=== PATIENT | female | born 1995 | race African-American/Black ===

== ENCOUNTER 2017-03-27 12:25 | Emergency (ER) | payer MEDICAID, SELFPAY ==
[2017-03-27 12:27] VITALS: BP 141/113; PULSE 108; RESP 18; TEMP 36.9; O2SAT 97; BMI 31.5
--- NOTE | 2017-03-27 13:04 | ED.DCSUM_ITS ---
- ER Visit Summary Date of Service: 03/27/17 Chief Complaint: Sore throat History of Present Illness: The patient is a 21 F past medical or surgical history. Patient states she has had a low-grade fever around 100 and a sore throat for the last 3 days. Mild nausea. Last menstrual period was a week ago. No dysuria. No significant abdominal pain. Physical Examination: Vital signs are stable afebrile. Pulse ox 97% on room air no signs of hypoxia. HEENT exam posterior pharynx is erythematous. Bilateral tonsils are mildly swollen. The right tonsil has exudate. There is no peritonsillar abscess. No drooling. No stridor. No trouble breathing or swallowing. TMs are normal bilaterally. The right tonsillar bed on the anterior neck is tender but there is no significant lymphadenopathy. Trachea is midline. Nontender. Lungs clear to auscultation. Heart regular rate and rhythm no murmur. Abdomen is soft and nontender. Moving all 4 extremities. Neurologically intact. Skin normal no rashes. Neurologic exam is normal. Test Results: None Emergency Department Course and Treatment: Clinically and historically the patient be treated for strep throat. Started on amoxicillin 500 3 times daily for 10 days. Tylenol Motrin for pain. Warm salt water gargling. Return if worse. Treatment Plan: [] Disposition: Discharge Impression: Acute strep tonsillitis This note was generated with [employer] dictation software. It may contain incorrect words, spelling, and punctuation that were not noted in review of the chart prior to signing ED Disposition - Plan for ED Patient: Chief Complaint: Sore Throat Referrals: Hemant Johnson DO [Primary Care Provider] -
--- NOTE | 2017-03-27 13:04 | ED.DEP ---
ED Disposition - Plan for ED Patient: Disposition: Home or Assisted Living Chief Complaint: Sore Throat Instructions: ED Strep Pharyngitis Poss Prescriptions: Amoxicillin 500 mg PO Q8 #30 tab Referrals: Hemant Johnson DO [Primary Care Provider] - 1 Week if not improving Additional Instructions: Fluids and rest. Tylenol and Motrin for pain and fever. Warm salt water gargling. Chloraseptic spray. Amoxicillin 3 times a day for 10 days. Return if getting worse or unable to swallow. Follow-up with primary care physician as needed.
[2017-03-27] MEDS: AMOXICILLIN 500 MG CAPSULE PO (13:36)
== END 2017-03-27 13:40 | disposition home or self-care (01) ==
PROVIDERS: Emergency Provider Emergency Medicine; Family Provider Family Medicine; PCP Family Medicine
DX: J03.00 Acute streptococcal tonsillitis, unspecified (principal); J02.0 Streptococcal pharyngitis; Z72.0 Tobacco use
CPT/HCPCS: 99283

== ENCOUNTER 2017-04-01 20:40 | Emergency (ER) | payer MEDICAID, SELFPAY ==
[2017-04-01 20:41] VITALS: BP 131/76; PULSE 101; RESP 16; TEMP 37.6; O2SAT 98; BMI 31.4
--- NOTE | 2017-04-01 23:24 | ED.DCSUM_ITS ---
- ER Visit Summary Date of Service: 04/01/17 Chief Complaint: Sore throat, cough, myalgias History of Present Illness: The patient is a 21 F seen 5 days ago for sore throat. Treated with amoxicillin for presumed strep. Dates feels much better, only mild pain with swallowing. No fevers. However 2 days ago started having cough and myalgias. No flu vaccination this year. Tobacco history. Motrin taken 4 hours ago. Tolerating oral intake. No vomiting or diarrhea. No history of asthma or COPD. States only takes oral contraceptives. Denies chest pains. Denies dyspnea. Physical Examination: General: Alert and oriented ?3, no acute distress. Occasional cough HEENT: Normocephalic, atraumatic. Moist mucosa membranes. No posterior pharyngeal erythema. Symmetric minimal sized tonsils. Uvula midline. No trismus. Neck: supple, nontender. No lymphadenopathy Cardiovascular: Regular rate and rhythm, no murmurs Respiratory: Normal breath sounds, symmetric, no distress Abdomen: Soft, nontender, nondistended Extremities: Nontender, no edema, pulses intact ?4 Neuro: no focal neurological deficits. Test Results: [] Emergency Department Course and Treatment: Patient vital signs stable, nontoxic. History presents concerning for influenza symptoms over the past 2 days. She has no comorbidities. However she is inside the window. Offered treatment and discussed side effects for which she wished to be started on Tamiflu. She will finish her amoxicillin. She is treated with Decadron to help with her mild pain with swallowing. She continue oral fluids at home. All questions were answered. Follow with PCP, return if any worsening symptoms. Treatment Plan: [] Disposition: Discharge Impression: 1. Sore throat- subsequent encounter 2. Influenza-like symptoms This note was generated with [employer] dictation software. It may contain incorrect words, spelling, and punctuation that were not noted in review of the chart prior to signing ED Disposition - Plan for ED Patient: Disposition: Home or Assisted Living Chief Complaint: General Illness Diagnosis: Sore throat, Influenza-like symptoms Instructions: Influenza, Self-Care for Sore Throats Prescriptions: Oseltamivir Phosphate [Tamiflu] 75 mg PO BID #10 capsule Referrals: Hemant Johnson DO [Primary Care Provider] - 3-5 Days
[2017-04-01] MEDS: Oseltamivir Phosphate 75 MG Capsule PO (23:40)
[2017-04-01 23:43] VITALS: PULSE 101; RESP 18; O2SAT 97
== END 2017-04-01 23:44 | disposition home or self-care (01) ==
PROVIDERS: Emergency Provider Emergency Medicine; Family Provider Family Medicine; PCP Family Medicine
DX: J02.9 Acute pharyngitis, unspecified (principal); R05 Cough; M79.1 Myalgia; Z79.3 Long term (current) use of hormonal contraceptives; Z72.0 Tobacco use
CPT/HCPCS: 99282

== ENCOUNTER 2017-04-27 07:48 | Emergency (ER) | payer MEDICAID, SELFPAY ==
[2017-04-27 07:50] VITALS: BP 148/90; PULSE 117; RESP 16; TEMP 36.1; O2SAT 100; BMI 30.5
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
[2017-04-27] MEDS: Diphth,Pertuss(Acell),Tet Vac 0.5 ML Vial IM (08:15)
[2017-04-27] MEDS: Naproxen 500 MG Tablet PO (08:16)
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
[2017-04-27 09:53] VITALS: BP 148/75; PULSE 82; RESP 16; O2SAT 98
== END 2017-04-27 09:54 | disposition home or self-care (01) ==
PROVIDERS: Emergency Provider Emergency Medicine; Family Provider Family Medicine; PCP Family Medicine
DX: S00.83XA Contusion of other part of head, initial encounter (principal); S00.531A Contusion of lip, initial encounter; S90.812A Abrasion, left foot, initial encounter; S60.872A Other superficial bite of left wrist, initial encounter; M25.512 Pain in left shoulder; M79.642 Pain in left hand; Y04.1XXA Assault by human bite, initial encounter; Y04.2XXA Assault by strike against or bumped into by another person, initial encounter; Y93.9 Activity, unspecified; Y92.9 Unspecified place or not applicable
CPT/HCPCS: 73030; 73110; 73130; 73630; 90715; 99283

== ENCOUNTER → 2017-07-30 13:56 | Outpatient (CLI) | payer MEDICAID, SELFPAY ==
[2017-07-30 17:48] LABS: Chlamydia Trachomatis by PCR POSITIVE (Negative); Neisserai gonorrhoeae by PCR Negative (Negative); Probe Check PASS; Specimen Processing Control PASS
[2017-07-30 17:49] LABS: Sample Adequacy Control PASS
[2017-08-04 19:07] LABS: HPV Reflexed? NOT INDICATED
== END ==
PROVIDERS: Visit Provider Obstetrics & Gynecology
DX: Z12.4 Encounter for screening for malignant neoplasm of cervix (principal)
CPT/HCPCS: 87491; 87591; 88175; G0145

== ENCOUNTER 2017-10-24 08:51 | Emergency (ER) | payer MEDICAID, SELFPAY ==
[2017-10-24 08:51] VITALS: BP 120/57; PULSE 86; RESP 14; TEMP 36.3; O2SAT 99; BMI 33.3
--- NOTE | 2017-10-24 09:03 | ED.DCSUM_ITS ---
- ER Visit Summary Date of Service: 10/24/17 Chief Complaint: Cough, vomiting, diarrhea History of Present Illness: The patient is a 22 F presents to the emergency department with multiple symptoms. The patient is otherwise healthy. She states over the past 3 days, she has had myalgias, chills, cough, vomiting, diarrhea. She states initially, she started with mild nasal drainage. She states shortly after that, she began to cough and begin to have fevers. She states that she has had about 3 or 4 episodes of vomiting. She states over the past 2 days, every time she moves her bowels with loose watery diarrhea. She denies any recent antibiotics. She denies any recent travel. She takes no daily medications. She has had no prior abdominal surgery. She does state that her family members recently traveled from [facility] about 3 weeks ago, but does not think any of them are sick. Physical Examination: Vital signs reviewed General: Well-nourished, well-developed Head: Normocephalic, atraumatic Eyes: Pupils equal and reactive, extraocular muscles intact Neck, supple, no lymphadenopathy Heart: Regular rate and rhythm Respiratory: No distress, scant wheeze throughout Abdomen: Soft, nontender, nondistended, no peritoneal signs Back: Nontender Extremities: Nontender, no edema, no cords Skin: Normal color no rash Neuro: Alert and oriented, no focal or lateralizing deficits Test Results: [] Emergency Department Course and Treatment: The patient presents to the emergency department with cough, nausea, vomiting, diarrhea. She does have wheezing throughout all lung garcía. She was given a DuoNeb treatment with improvement of her aeration. Her x-ray does not show any focal infiltrates. Patient was given IV fluids and nausea medication. She did have rather significant improvement of her nausea. Screening labs were obtained were unremarkable. Her electrolytes are unremarkable. She is feeling improved on reevaluation. I do not suspect a dangerous process of her symptoms. I do not see a clear indication for antibiotic therapy. I do feel that the patient can be treated symptomatically with antiemetics and an inhaler for her bronchospasm. She was counseled on concerning symptoms and reasons to return. Patient will be discharged home. Treatment Plan: [] Disposition: Discharge Impression: 1. Viral bronchitis 2. Nausea, vomiting, diarrhea This note was generated with [employer] software. It may contain incorrect words, spelling, and punctuation that were not noted in review of the chart prior to signing ED Disposition - Plan for ED Patient: Chief Complaint: General Illness Instructions: ED Viral Syndrome Prescriptions: Albuterol Inhaler [Ventolin Hfa] 1 - 2 puff INHALATION Q4H PRN PRN #1 inhaler PRN Reason: Wheezing Ondansetron [Zofran Odt] 4 mg PO Q8H PRN PRN #10 tab PRN Reason: Nausea Referrals: Hemant Johnson DO [Primary Care Provider] -
[2017-10-24] MEDS: Ipratropium/Albuterol Sulfate 3 ML AMPUL.NEB INHALATION (09:13)
[2017-10-24 09:15] VITALS: PULSE 60; RESP 18
[2017-10-24] MEDS: 0.9% Normal Saline 1,000 ML 1000 ML IV (09:23)
[2017-10-24] MEDS: proMETHazine 25 MG/ML Syringe 6.25 MG IV (09:23)
[2017-10-24 09:26] LABS: Absolute Lymphocyte Count 1.55 X10^3/ul (0.83-4.51); Absolute Neutrophil Count 3.8 X10^3/uL (2.0-7.7); Basophil# 0.02 X10^3/uL; Basophil% 0.3 % (0-1); Eosinophil# 0.36 X10^3/uL; Eosinophils% 5.7 % (0-5); Hematocrit 39.5 % (37-47); Hemoglobin 12.5 g/dl (12.0-15.0); Lymphocyte # 1.55 X10^3/ul (4.0); Lymphocyte % 24.6 % (19-41); Mean Corp Hgb Conc 31.6 g/gl (32-36); Mean Corpuscular Hgb 27.5 pg (27.0-32.0); Mean Corpuscular Volume 86.8 fL (81-99); Monocyte# 0.56 X10^3/uL; Monocyte% 8.9 % (0-10); Neutrophil % 60.5 % (47-70); Platelet Count 283 K/mm3 (150-450); RBC Distribution Width CV 13.2 % (11.6-14.6); Red Blood Count 4.55 M/mm3 (4.2-5.4); White Blood Count 6.3 K/mm3 (4.4-11.0)
[2017-10-24 09:30] LABS: POSITIVE COUNT NO; POSITIVE DIFFERENTIAL NO; POSITIVE MORPHOLOGY NO
--- NOTE | 2017-10-24 09:30 | RAD_ITS ---
STUDY: X-RAY CHEST REASON FOR EXAM: Female, 22 years old. 3 day history of cough. TECHNIQUE: PA and lateral views of the chest. COMPARISON: Comparison is made with prior study dated July 30, 2016. FINDINGS: The lungs are clear and expanded. There is no demonstrated pleural abnormality. Normal size heart. Normal mediastinum and tono. Normal visualized pulmonary arteries. Normal visualized aortic arch and descending thoracic aorta. Normal visualized thoracic spine. Normal visualized ribs, clavicles, and shoulders. There is no demonstrated abnormality of the visualized soft tissue structures of the upper abdomen. RAD/Chest PA and Lateral IMPRESSION: Normal x-ray examination of the chest. Electronically Signed: Luis Dunlap MD at 10:07 EDT Tel [phone], Service support ,
[2017-10-24 09:38] LABS: ALB/GLOB Ratio 0.9 RATIO (0.9-2.4); AST(SGOT) 13 U/L (15-37); Alanine Aminotransfer ALT/SGPT 16 U/L (13-56); Albumin, Serum 3.3 g/dL (3.2-5.0); Alkaline Phosphatase 60 U/L (45-117); Anion Gap 5 (5-15); BUN 9 mg/dL (7-18); BUN/Creat Ratio 13.2 RATIO (10-20); Calcium,Total 8.8 mg/dL (8.5-10.1); Chloride 108 mmol/L (98-107); Creatinine, Serum 0.68 mg/dL (0.55-1.02); EST Glomerular Filtration Rate 115 mL/min (>60); Est Glom Filt Rate - Afr Amer 140 mL/min (>60); Estimated Creatinine Clearance 141.52 ml/min; Globulin 3.8 g/dL (2.2-4.2); Glucose 89 mg/dL (74-106); Potassium 4.3 mmol/L (3.5-5.1); Protein, Total 7.1 g/dL (6.4-8.2); Sodium Level 142 mmol/L (136-145)
[2017-10-24 09:41] LABS: Pregnancy, Serum, hCG Quali. NEGATIVE Negative (0-9 Nonpreg)
== END 2017-10-24 10:26 | disposition home or self-care (01) ==
LOC: ED 09:09
PROVIDERS: Emergency Provider Emergency Medicine; Family Provider Family Medicine; PCP Family Medicine
DX: J20.8 Acute bronchitis due to other specified organisms (principal); R11.2 Nausea with vomiting, unspecified; R19.7 Diarrhea, unspecified
CPT/HCPCS: 71046; 80053; 84703; 85025; 94640; 96361; 96374; 99283; J7030; A4216

== ENCOUNTER → 2020-01-17 13:55 | Outpatient (CLI) | payer MEDICAID, SELFPAY ==
[2020-01-17 18:11] LABS: Hemoglobin A1c 5.3 % (3.8-5.6)
[2020-01-17 18:38] LABS: ALB/GLOB Ratio 0.8 RATIO (0.9-2.4); AST(SGOT) 15 U/L (15-37); Alanine Aminotransfer ALT/SGPT 20 U/L (13-56); Albumin, Serum 3.5 g/dL (3.2-5.0); Alkaline Phosphatase 95 U/L (45-117); Anion Gap 7 (5-15); BUN 15 mg/dL (7-18); BUN/Creat Ratio 21.5 RATIO (10-20); Calcium,Total 8.7 mg/dL (8.5-10.1); Chloride 106 mmol/L (98-107); EST Glomerular Filtration Rate 110 mL/min (>60); Est Glom Filt Rate - Afr Amer 133 mL/min (>60); Globulin 4.5 g/dL (2.2-4.2); Glucose 103 mg/dL (74-106); Potassium 4.4 mmol/L (3.5-5.1); Sodium Level 134 mmol/L (136-145); T4 Free Direct 1.07 ng/dL (0.76-1.46); Thyroid Stim Hormone (TSH) 1.12 uIU/mL (0.358-3.74)
== END ==
PROVIDERS: PCP Family Medicine; Visit Provider Family Medicine
DX: R73.01 Impaired fasting glucose (principal); R53.83 Other fatigue
CPT/HCPCS: 36415; 80053; 83036; 84439; 84443

== ENCOUNTER → 2020-04-14 16:00 | Outpatient (CLI) | payer MEDICAID, SELFPAY ==
[2020-04-17 19:51] LABS: EBV Acute VCA IgM < 36.0 U/mL (0.0-35.9); EBV-VCA IgG > 600.0 U/mL (0.0-17.9)
[2020-04-18 03:06] LABS: Chlamydia By Nucleic Acid AMP Negative (Negative)
[2020-04-18 15:59] LABS: Gonococcus By Nucleic Acid AMP Positive (Negative)
[2020-04-19 11:49] LABS: HPV APTIMA, High Risk Negative (Negative)
== END ==
PROVIDERS: Student in an Organized Health Care Education/Training Program; PCP Family Medicine; Visit Provider Family Medicine
DX: J02.9 Acute pharyngitis, unspecified (principal); Z12.4 Encounter for screening for malignant neoplasm of cervix; Z11.3 Encounter for screening for infections with a predominantly sexual mode of transmission
CPT/HCPCS: 36415; 86664; 86665; 87491; 87591; 87624; 88175; G0145

== ENCOUNTER 2020-05-09 11:08 | Emergency (ER) | payer MEDICAID, SELFPAY ==
[2020-05-09 11:09] VITALS: BP 145/96; PULSE 106; RESP 18; TEMP 37.2; O2SAT 100; BMI 37.6
[2020-05-09] MEDS: Acetaminophen 500 MG Tablet 1000 MG PO (11:54)
[2020-05-09] MEDS: 0.9% Normal Saline 1,000 ML 1000 ML IV (11:56)
[2020-05-09 12:11] VITALS: PULSE 90; RESP 18; O2SAT 100
[2020-05-09 12:17] VITALS: O2SAT 100
--- NOTE | 2020-05-09 12:18 | RAD_ITS ---
STUDY: X-RAY CHEST REASON FOR EXAM: Female, 25 years old. Fever. Cough and sore throat. TECHNIQUE: Single AP portable view of the chest. COMPARISON: Comparison is made with prior study dated 10/24/2017. FINDINGS: The lungs are clear and expanded. There is no demonstrated pleural abnormality. Normal size heart. Normal mediastinum and tono. Normal visualized pulmonary arteries. Normal visualized aortic arch and descending thoracic aorta. Normal visualized thoracic spine. Normal visualized ribs, clavicles, and shoulders. There is no demonstrated abnormality of the visualized soft tissue structures of the upper abdomen. RAD/Chest 1 View (Portable) IMPRESSION: Normal x-ray examination of the chest. Electronically Signed: Luis Dunlap MD at 12:33 EDT , Service support ,
--- NOTE | 2020-05-09 12:24 | ED.DCSUM_ITS ---
- ER Visit Summary Date of Service: 05/09/20 Chief Complaint: Sore throat, diarrhea, general myalgias History of Present Illness: The patient is a 25 F who presents with a sore throat, diarrhea, and myalgias that began yesterday. Patient states this has gradually gotten worse. Patient states she has pain in her throat that is worse with swallowing. Patient states she also has pain in both ears whenever she swallows. Patient admits to some rhinorrhea. Patient also admits to subjective chills but denies any fevers. Patient admits to general myalgias. Patient states she has been having some diarrhea as well. Patient denies any nausea or vomiting. Patient admits to some mild shortness of breath. Physical Examination: Vital signs are stable. Patient is afebrile. Patient is in no acute distress. Oral mucosa is pink and moist. Oropharynx is slightly erythematous. There is questionable exudate on the tonsils. Neck is supple. Trachea is midline. There is no JVD. Heart was regular rate and rhythm. Lungs are clear and equal bilaterally. Abdomen is soft. Bowel sounds are normal. There is no tenderness. Cranial nerves II through XII are intact. There are no focal motor or sensory deficits. There is some mild erythema and induration over the dorsal aspect of the left distal forearm. There is no evidence of any abscess. There is no discharge or drainage. Test Results: Rapid strep was obtained and was positive. COVID-19 rapid antigen was obtained was negative. CBC shows a leukocytosis of 16.5. Basic metabolic profile was essentially within normal limits. Emergency Department Course and Treatment: IV fluids and Tylenol here. Patient was feeling somewhat better on reevaluation. Patient was given prescription for Keflex. Patient was given her first dose here. Patient was instructed to follow-up with her primary care physician in 5 to 7 days. Patient was instructed to continue Tylenol or ibuprofen as needed for pain. Patient understood and was agreeable with the plan. All questions were answered. Disposition: Discharge home Impression: 1. Strep pharyngitis 2. Cellulitis left forearm This note was generated with [employer] software. It may contain incorrect words, spelling, and punctuation that were not noted in review of the chart prior to signing ED Disposition - Plan for ED Patient: Disposition: Home or Assisted Living Diagnosis: Strep pharyngitis, Cellulitis of left forearm Instructions: ED Pharyngitis, Strep (Confirmed) Prescriptions: Cephalexin [Keflex] 500 mg PO Q6 #40 capsule Prescription Printed Referrals: Hemant Johnson DO [Primary Care Provider] - 5-7 Days
[2020-05-09 13:06] LABS: Absolute Lymphocyte Count 0.77 X10^3/uL (0.83-4.51); Absolute Neutrophil Count 14.4 X10^3/uL (2.0-7.7); Basophil# 0.03 X10^3/uL; Basophil% 0.2 % (0-1); Eosinophil# 0.05 X10^3/uL; Eosinophils% 0.3 % (0-5); Hematocrit 40.5 % (37-47); Hemoglobin 12.8 g/dL (12.0-15.0); Lymphocyte # 0.77 X10^3/ul (4.0); Lymphocyte % 4.7 % (19-41); Mean Corp Hgb Conc 31.6 g/dL (32-36); Mean Corpuscular Hgb 27.3 pg (27.0-32.0); Mean Corpuscular Volume 86.4 fL (81-99); Mean Platelet Vol. 8.8 fl (6.2-12.0); Monocyte# 1.19 X10^3/uL; Monocyte% 7.2 % (0-10); NRBC Flagged by Analyzer 0 % (0-5); Neutrophil % 87.1 % (47-70); Platelet Count 337 K/mm3 (150-450); RBC Distribution Width CV 11.5 % (11.6-14.6); RBC Distribution Width SD 36.6 fl (35.1-43.9); Red Blood Count 4.69 M/mm3 (4.2-5.4); White Blood Count 16.5 K/mm3 (4.4-11.0)
[2020-05-09 13:20] VITALS: BP 125/77; PULSE 83; RESP 18; O2SAT 100
[2020-05-09 13:23] LABS: Anion Gap 2 (5-15); BUN 5 mg/dL (7-18); Calcium,Total 9.2 mg/dL (8.5-10.1); Chloride 102 mmol/L (98-107); Creatinine, Serum 0.63 mg/dL (0.55-1.02); EST Glomerular Filtration Rate 124 mL/min (>60); Est Glom Filt Rate - Afr Amer 150 mL/min (>60); Glucose 99 mg/dL (74-106); Potassium 3.7 mmol/L (3.5-5.1); Sodium Level 134 mmol/L (136-145)
[2020-05-09] MEDS: Cephalexin 500 MG Capsule PO (14:17)
== END 2020-05-09 14:22 | disposition home or self-care (01) ==
PROVIDERS: Emergency Provider Emergency Medicine; PCP Family Medicine
DX: J02.0 Streptococcal pharyngitis (principal); L03.114 Cellulitis of left upper limb; E66.9 Obesity, unspecified; F31.9 Bipolar disorder, unspecified; F17.200 Nicotine dependence, unspecified, uncomplicated
CPT/HCPCS: 71045; 80048; 85025; 87426; 87880; 99285; J7030

== ENCOUNTER → 2022-12-23 | Outpatient (CLI) | payer MEDICAID, SELFPAY ==
[2022-12-23 17:54] LABS: Absolute Lymphocyte Count 1.65 X10^3/uL (0.83-4.51); Absolute Neutrophil Count 7.6 X10^3/uL (2.0-7.7); Basophil# 0.06 X10^3/uL; Basophil% 0.6 % (0-1); Eosinophil# 0.27 X10^3/uL; Eosinophils% 2.6 % (0-5); Hematocrit 40.6 % (37-47); Hemoglobin 12.4 g/dL (12.0-15.0); Lymphocyte # 1.65 X10^3/ul (0.83-4.51); Lymphocyte % 15.9 % (19-41); Mean Corp Hgb Conc 30.5 g/dL (32-36); Mean Corpuscular Hgb 25.9 pg (27.0-32.0); Mean Corpuscular Volume 84.9 fL (81-99); Mean Platelet Vol. 9.8 fl (6.2-12.0); Monocyte# 0.81 X10^3/uL; Monocyte% 7.8 % (0-10); NRBC Flagged by Analyzer 0 % (0-5); Neutrophil # 7.56 X10^3/uL (2.7-7.7); Neutrophil % 72.7 % (47-70); Platelet Count 381 K/mm3 (150-450); RBC Distribution Width CV 13.5 % (11.6-14.6); RBC Distribution Width SD 42.2 fl (35.1-43.9); Red Blood Count 4.78 M/mm3 (4.2-5.4); White Blood Count 10.4 K/mm3 (4.4-11.0)
[2022-12-23 18:23] LABS: Vitamin B12 310 pg/mL (211-911); Vitamin D,25 Hydroxy 32.2 ng/mL
[2022-12-23 18:32] LABS: ALB/GLOB Ratio 0.9 RATIO (0.9-2.4); AST(SGOT) 12 U/L (15-37); Alanine Aminotransfer ALT/SGPT 17 U/L (13-56); Albumin, Serum 3.6 g/dL (3.2-5.0); Alkaline Phosphatase 58 U/L (45-117); Anion Gap 6 (5-15); BUN 13 mg/dL (7-18); BUN/Creat Ratio 14.8 RATIO (10-20); Calcium,Total 9.3 mg/dL (8.5-10.1); Chloride 103 mmol/L (98-107); Creatinine, Serum 0.88 mg/dL (0.55-1.02); EST Glomerular Filtration Rate 83 mL/min (>60); Est Glom Filt Rate - Afr Amer 100 mL/min (>60); Globulin 4.1 g/dL (2.2-4.2); Glucose 75 mg/dL (74-106); Potassium 4.2 mmol/L (3.5-5.1); Protein, Total 7.7 g/dL (6.4-8.2); Sodium Level 137 mmol/L (136-145); Thyroid Stim Hormone (TSH) 2.29 uIU/mL (0.358-3.74)
== END | disposition home or self-care (01) ==
LOC: BFHLAB 16:14
PROVIDERS: PCP Family Medicine; Visit Provider Family Medicine
DX: R53.83 Other fatigue (principal)
CPT/HCPCS: 36415; 80053; 82306; 82607; 84443; 85025

== ENCOUNTER 2023-02-06 17:19 | Emergency (ER) | payer MEDICAID, SELFPAY ==
[2023-02-06 17:20] VITALS: BP 163/104; PULSE 83; RESP 16; TEMP 36.4; O2SAT 98; BMI 41.3
[2023-02-06 18:11] LABS: Internal QC Validated? YES +Cl - CLEAR BKGD; Pregnancy, Urine Positive Negative
--- NOTE | 2023-02-06 20:04 | EDS_ITS ---
HPI HPI - URI History of Present Illness Chief Complaint: Cold Sx Informant: patient Onset/Context/Timing Onset: Today Timing: Continuous Current Severity: Mild Maximum Severity: Mild Associated Symptoms Associated Symptoms: Positive for Nasal Congestion, Nausea, Vomiting, Diarrhea and Nonproductive cough Narrative Narrative: 27-year-old female history of bipolar disorder and anxiety. States multiple family members at home have COVID. She tested negative at home came in to be evaluated. Also concerned she may be . Denies any abdominal pain. No pelvic pain. No vaginal bleeding or discharge. Last menstrual period was near the end of December. She is G1, P1 Ab0. She denies any dysuria. She has had nausea, vomiting and diarrhea today. Prior similar symptoms: Yes Recent Illness/Hospitalization: No ROS ROS ED ROS Narrative Nausea, vomiting and diarrhea. Nonproductive cough. Review of Systems ROS Unobtainable: Denies due to encephalopathy Constitutional Constitutional ED: Denies chills or fever(s) Eyes Eyes: Denies blurry vision ENT ENT ED: Denies ear pain, rhinorrhea or sore throat Cardiovascular Cardiovascular: Denies chest pain Respiratory/Chest Respiratory/Chest: Reports cough; Denies dyspnea or dyspnea on exertion Gastrointestinal Gastrointestinal: Reports diarrhea, nausea and vomiting; Denies abdominal pain, constipation or melena Genitourinary Genitourinary ED: Denies dysuria or hematuria Musculoskeletal Musculoskeletal: Denies arthralgias Integumentary Denies abscess Neurologic Neurologic: Denies headache(s) Psychiatric Psychiatric: Denies anxiety Endocrine Endocrinology: Denies cold intolerance Hematologic/Lymphatic Hematologic/Lymphatic: Denies easy bleeding Allergic/Immunologic Allergic/Immunologic ED: Denies mouth swelling, tongue swelling or urticaria PFSH PFSH Home Medications albuterol sulfate 90 mcg/actuation aerosol inhaler 1 - 2 puff inhalation Q4H PRN PRN Wheezing ##1 10/24/17 [Rx Last Taken Unknown] ondansetron 4 mg disintegrating tablet 4 mg PO Q8H PRN PRN Nausea #10 tabs 10/24/17 [Rx Last Taken Unknown] cephalexin 500 mg capsule 500 mg PO Q6 #40 CAPSULES 05/09/20 [Rx Last Taken Unknown] ondansetron 4 mg disintegrating tablet 4 mg PO Q6H PRN nausea and vomiting #7 tabs 02/06/23 [Rx Last Taken Unknown] Allergy/AdvReac Type Severity Reaction Status Date / Time No Known Allergies Allergy Verified 02/06/23 17:19 Social History Smoking Status: Current every day smoker EXAM Physical Exam Narrative Exam Narrative: Well-appearing 27-year-old female. Vital signs stable afebrile. Pulse ox 98% on room air no hypoxia. H EENT exam unremarkable. Moist membranes. Neck nonte nder no JVD. Lungs clear to auscultation bilaterally. Heart regular rhythm no murmur rate about 80. Abdomen soft nondistended normal bowel sounds no peritoneal signs. Absolutely no abdominal or pelvic tenderness. Moving all 4 extremities. Nontender no edema. Neurologically she is awake alert with no focal motor deficits. Benign exam. Const Vital Signs: 02/06/23 17:20 Temperature 97.5 F L Temperature Source Temporal Pulse Rate 83 Respiratory Rate 16 Blood Pressure 163/104 H Blood Pressure Mean 123 Pulse Ox 98 Oxygen Delivery Method Room Air Positive well nourished and well developed; Negative for cachectic or contractures General Appearance ED: well developed and NAD; Negative for cachectic, contractures, cyanotic, diaphoretic or pallor Nutritional Appearance: Negative for cachectic HEENT Reports moist mucous membranes; Denies dry mucous membranes normocephalic and atraumatic; Negative for scalp tenderness Face and Sinus: Negative for sinus tenderness Mouth ED: No dry mucous membranes Mouth: No dry mucous membranes Teeth and Gingiva: Negative for caries Throat: posterior oropharynx normal; Negative for tonsils abnormal or posterior oropharynx abnormal Eyes PERRL and EOMs intact bilaterally General Eye ED: Negative for pale conjunctiva, scleral icterus or other Neck no lymphadenopathy, supple, no meningeal signs and no JVD General: Negative for anterior neck swelling, lymphadenopathy or other Resp normal respiratory effort and clear to auscultation bilaterally Effort and Inspection: Negative for retractions Auscultation: Negative for rales, rhonchi or wheezes Cardio S1 normal heart sound, S2 normal heart sound and no murmurs Rate: regular rate Rhythm: regular rhythm GI non-tender, non-distended and no masses Inspection: Negative for abdominal distention Auscultation: normoactive bowel sounds Palpation: soft; Negative for tender, guarding or hepatomegaly Percussion: Negative for other Back/Spine no CVA tenderness and normal ROM General Back: Negative for CVA tenderness Cervical Spine: Negative for cervical spine tenderness Thoracic Spine / Upper Back: Negative for thoracic spinal tenderness Lumbar Spine / Lower Back: Negative for lumbar spinal tenderness Sacrum: Negative for tenderness Extremity normal to inspection and full ROM General Extremety ED: Yes tenderness; Negative for cyanosis General Extremity: Negative for cyanosis Neuro oriented x3 and CN's II-XII intact bilaterally Sensorium / Orientation: alert Motor Exam: strength 5/5 throughout Psych mental status grossly normal Appearance: Negative for other Attitude: No agitated Mood & Affect: Negative for depressed or tearful Skin General Skin Exam: Negative for jaundice or pallor Lesions: no lesions Rashes: no rashes Trauma: Negative for abrasion or laceration MDM MDM MDM Narrative Medical decision making narrative: 27-year-old female wanted be checked for and she is positive on urine test. Most likely she has a viral syndrome possibly even COVID with multiple family members at home with COVID but hers tested negative. Should be treated with IV fluids and Zofran. Discharged home with Zofran prescription. Outpatient follow-up with MANUFACTURING DIRECTOR. History & Record Review Discussion w/independent historian: Patient Additional record(s) reviewed:: Prior inpatient record, Prior outpatient record and Prior ED visit Lab Data Attestation: I reviewed the patient's lab results. Lab results narrative: COVID test negative. Urine test positive. Labs: Laboratory Results - last 24 hr 02/06/23 18:00 Urine Test Positive H Discharge Plan Triage Chief Complaint: Cold Sx ED Provider: Mendoza Arias Dx/Rx/DC Orders Clinical Impression: First trimester , Viral syndrome Instructions: 1st Trimester, ED Viral Syndrome (Adult) Prescriptions: New ondansetron 4 mg tablet,disintegrating 4 mg PO Q6H PRN (Reason: nausea and vomiting) Qty: 7 0RF No Action albuterol sulfate 1 INHALER inhaler 1 - 2 puff INHALATION Q4H PRN PRN (Reason: Wheezing) Qty: 1 0RF ondansetron 4 MG tablet 4 mg PO Q8H PRN PRN (Reason: Nausea) Qty: 10 0RF cephalexin 500 MG capsule 500 mg PO Q6 Qty: 40 0RF Primary Care Provider: Hemant Johnson Referrals: Hemant Johnson DO [Primary Care Provider] - Zeenat Jin DO [Med Staff - Active Staff] - As soon as possible Activity Restrictions/Additional Instructions: COVID test is negative today but you probably have COVID or another virus. Plenty of fluids and rest. Tylenol for any fever. Zofran as needed for nausea. Your test was positive. Follow-up with MANUFACTURING DIRECTOR. Disposition Disposition: Home, Self Care
[2023-02-06 20:08] VITALS: BP 97/82; PULSE 81; RESP 22; O2SAT 98
[2023-02-06 20:17] VITALS: BP 112/70; PULSE 92; RESP 16; O2SAT 100
[2023-02-06] MEDS: Ondansetron 4 MG/2 ML Vial IV (20:20)
[2023-02-06] MEDS: 0.9% Normal Saline (1000mL) 1,000 ML 1000 ML IV (20:20)
--- OUTSIDE RECORDS SUMMARY | 2023-02-06 21:16 | XMS RPT_ITS | CCD ---
Author Name Unknown Address [address] [place] [address] Organization [facility] Care Team Providers Care Scrum Coach Name Role Phone Joaquin Johnson Primary Care Provider [phone] Charleen Zhu MD Unavailable CHARLEEN ZHU Attending Unavailable JOAQUIN JOHNSON Primary Care Unavailable CHARLEEN ZHU Attending Unavailable JOAQUIN JOHNSON Referring Unavailable JOAQUIN JOHNSON Primary Care Unavailable CHARLEEN ZHU Admitting Unavailable CHARLEEN ZHU Attending Unavailable JOAQUIN JOHNSON Primary Care Unavailable Joaquin Johnson DO Primary Care Provider SOURAV HURT Referring Unavailable JOAQUIN JOHNSON Primary Care Unavailable JOAQUIN JOHNSON Primary Care Unavailable Medications Current Medications Medication Drug Class(es) Dates Sig (Normalized) Sig (Original) benzonatate 100 mg oral capsule (2 sources) Non-narcotic Antitussive Start: 10-25-2022 End: 11-09-2022 take 1 capsule by mouth every eight hours as needed for cough and cough benzonatate (TESSALON PERLE) 100 mg capsule Indications: Acute cough Take 1 capsule by mouth every 8 hours as needed for cough for up to 15 days. 30 capsule 0 10/25/2022 11/09/2022 Active Completed/Discontinued Medications Medication Drug Class(es) Dates Sig (Normalized) Sig (Original) [id number] 200 actuat albuterol 0.09 mg/actuat metered dose inhaler (2 sources) beta2-Adrenergic Agonist Start: 10-25-2022 take 2 puff(s) by inhalation every four hours as needed for wheezing albuterol HFA (PROVENTIL HFA, VENTOLIN HFA) 90 mcg/actuation inhaler Indications: Wheezing Inhale 2 Puffs as instructed every 4 hours as needed for wheezing/shortnes s of breath. 8 g 0 10/25/2022 Active Problems Problem Classification Problem Date Documented Date Episodic/Chronic Abdominal pain (2 sources) Generalized abdominal pain; Translations: [Generalized abdominal pain] 09-27-2022 Episodic Esophageal disorders (6 sources) Gastroesophageal reflux disease; Translations: [Gastro-esophageal reflux disease without esophagitis] Onset: 10-15-2022 09-27-2022 Chronic Gastritis and duodenitis (5 sources) Chronic superficial gastritis; Translations: [Chronic superficial gastritis without bleeding] Onset: 10-12-2022 10-12-2022 Chronic Other lower respiratory disease (1 source) Cough; Translations: [Acute cough] 10-25-2022 Episodic Other lower respiratory disease (1 source) Wheezing; Translations: [Wheezing] 10-25-2022 Episodic Other non-traumatic joint disorders (3 sources) Pain in right knee; Translations: [Pain in joint, lower leg] 09-19-2022 Episodic Other nutritional; endocrine; and metabolic disorders (3 sources) Body mass index 40+ - severely obese; Translations: [Morbid (severe) obesity due to excess calories] 09-19-2022 Chronic Other nutritional; endocrine; and metabolic disorders (15 sources) Morbid obesity; Translations: [Morbid (severe) obesity due to excess calories] Onset: 09-19-2022 09-19-2022 Chronic Other nutritional; endocrine; and metabolic disorders (2 sources) Morbid (severe) obesity due to excess calories; Translations: [Morbid (severe) obesity due to excess calories (HCC)] Onset: 09-19-2022 Chronic Other nutritional; endocrine; and metabolic disorders (2 sources) Body mass index (BMI) 45.0-49.9, adult; Translations: [Body mass index (BMI) 45.0-49.9, adult (HCC)] Onset: 09-19-2022 Chronic Residual codes; unclassified (4 sources) Tobacco use and exposure - finding; Translations: [Tobacco use] Onset: 09-19-2022 09-19-2022 Episodic Residual codes; unclassified (1 source) Tobacco use; Translations: [Tobacco use] Onset: 09-19-2022 Episodic Spondylosis; intervertebral disc disorders; other back problems (10 sources) Backache; Translations: [Dorsalgia, unspecified] Onset: 09-19-2022 09-19-2022 Episodic Unclassified (1 source) Acute cough; Translations: [Acute cough] Onset: 10-25-2022 Results Test Name Value Interpretation Reference Range Facil ity Vital Signs Date Time Vital Sign Value Performing Clinician Ender duque 10-25-2022 11:15-0400 Body temperature 98.1 [degF] Sourav Hurt MD Work Phone: [facility] 10-25-2022 11:15-0400 Body weight 140.16 kg Sourav Hurt MD Work Phone: [facility] 10-25-2022 11:15-0400 Diastolic blood pressure 84 mm[Hg] Sourav Hurt MD Work Phone: [facility] 10-25-2022 11:15-0400 Heart rate 106 /min Sourav Hurt MD Work Phone: [facility] 10-25-2022 11:15-0400 Respiratory rate 18 /min Sourav Hurt MD Work Phone: [facility] 10-25-2022 11:15-0400 SaO2% (BldA) [Mass fraction] 98 % Sourav Hurt MD Work Phone: [facility] 10-25-2022 11:15-0400 Systolic blood pressure 132 mm[Hg] Sourav Hurt MD Work Phone: [facility] 10-15-2022 12:03-0400 Diastolic blood pressure 75 mm[Hg] Charleen Zhu MD Work Phone: [facility] 10-15-2022 12:03-0400 Heart rate 69 /min Charleen Zhu MD Work Phone: [facility] 10-15-2022 12:03-0400 Respiratory rate 18 /min Charleen Zhu MD Work Phone: [facility] 10-15-2022 12:03-0400 SaO2% (BldA) [Mass fraction] 97 % Charleen Zhu MD Work Phone: [facility] 10-15-2022 12:03-0400 Systolic blood pressure 132 mm[Hg] Charleen Zhu MD Work Phone: [facility] 10-15-2022 11:45-0400 Body temperature 97.5 [degF] Charleen Zhu MD Work Phone: [facility] 10-15-2022 10:58-0400 Body height 177.8 cm Charleen Zhu MD Work Phone: [facility] 10-15-2022 10:58-0400 Body mass index (BMI) [Ratio] 45.05 kg/m2 Charleen Zhu MD Work Phone: [facility] 10-15-2022 10:58-0400 Body weight 142.43 kg Charleen Zhu MD Work Phone: [facility] 10-07-2022 11:03-0400 Body height 174.[address] Work Phone: [facility] 10-07-2022 11:03-0400 Body mass index (BMI) [Ratio] 46.77 kg/m2 Bing Baltazar RD Work Phone: [facility] 10-07-2022 11:03-0400 Body weight 142.[address] Work Phone: [facility] 09-19-2022 12:44-0400 Body height 174.6 cm Charleen Zhu MD Work Phone: [facility] 09-19-2022 12:44-0400 Body mass index (BMI) [Ratio] 46.95 kg/m2 Charleen Zhu MD Work Phone: [facility] 09-19-2022 12:44-0400 Body temperature 96.4 [degF] Charleen Zhu MD Work Phone: [facility] 09-19-2022 12:44-0400 Body weight 143.16 kg Charleen Zhu MD Work Phone: [facility] 09-19-2022 12:44-0400 Diastolic blood pressure 61 mm[Hg] Charleen Zhu MD Work Phone: [facility] 09-19-2022 12:44-0400 Heart rate 111 /min Charleen Zhu MD Work Phone: [facility] 09-19-2022 12:44-0400 Respiratory rate 18 /min Charleen Zhu MD Work Phone: [facility] 09-19-2022 12:44-0400 Systolic blood pressure 106 mm[Hg] Charleen Zhu MD Work Phone: [facility] Encounters Encounter Date Encounter Type Care Provider Facility Start: 11-04-2022 Telephone encounter Bing m[address] Work Phone: [facility] Plan of Treatment Date Care Activity Detail Author Start: 2046 Zoster Vaccines (1 o f 2) Zoster Vaccines (1 of 2) [facility] Start: 11-15-2022 End: 11-15-2022 Patient encounter procedure 11/15/2022 1:00 PM EDT Appointment [facility] [address] [place] [address] [facility] [address] [place] [phone] [facility] Start: 11-04-2022 End: 11-04-2022 Clinical Support 11/04/2022 8:00 AM EDT Clinical Support [facility] [address] [place] [address] [address] [facility] Start: 10-17-2022 End: 10-17-2022 Patient encounter procedure 10/17/2022 9:00 AM EDT Office Visit [facility] [address] [place] [address] Charleen Zhu MD [address] [place] [address] Avery Davis MD [address] [place] [address] [facility] Start: 10-15-2022 End: 10-15-2022 Admission to same day surgery center 10/15/2022 1:45 PM EDT - 10/15/2022 2:15 PM EDT Surgery [facility] [address] [place] [id number] Charleen Zhu MD [address] [place], [place] [id number] EGD WITH BIOPSY [35378 (CPT )] [facility] [address] [facility] Immunizations Immunization Date Immunization Notes Care Provider Fa cility 12-16-2021 influenza virus vacc ine, unspecified formulation Sourav Hurt MD Work Phone: [facility] Payers Date Payer Category Payer Medicaid [id number] 2022 Medicaid [id number] Social History Date Type Detail Facility Start: 07-14-2022 End: 10-25-2022 Tobacco smoking status NHIS Smokes tobacco daily [facility] Start: 07-14-2022 History of tobacco use Cigarette Smo ker [facility] Start: 09-19-2022 End: 10-15-2022 Cigarettes smoked current (pack per day) - Reported 1 [facility] Start: 09-19-2022 End: 10-25-2022 Tobacco use and exposure Smokeless tobacco non-user [facility] Start: 09-19-2022 End: 10-15-2022 Alcohol intake Current drinker of alcohol (finding) [facility] Start: 09-19-2022 End: 10-15-2022 Tobacco use panel [facility] Start: 1995 Sex Assigned At Female S [facility] Start: 09-18-2022 Gender identity Identifies as female gender (finding) [facility] Start: 09-18-2022 Sexual orientation Heterosexual (fin teddy) [facility] Start: 09-09-2022 End: 10-07-2022 Exposure to SARS-CoV-2 (event) Not sure [facility] Within the last year , have you been afraid of your partner or ex-partner? No [facility] Start: 10-05-2022 End: 10-15-2022 Exposure to SARS-CoV-2 (event) Unable to assess [facility] National Score (1-10 0), lower number is lower risk Not on file [facility] Start: 1995 Sex Assigned At Not on file [facility] Clinical Notes 09-19-2022 to 11-04-2022 Telephone Encounter - Bing Baltazar RD - 11/04/2022 8:16 AM EDTTelephone Encounter - Bing Baltazar RD - 11/04/2022 8:16 AM EDTTelephone Encounter - Jayne Chacon MA - 10/26/2022 9:56 AM EDT Note Date & Type Note Facility 11-04-2022 Telephone encounter Note Pre-op_JZ 2 phone call attempts to [phone] to reach pt this am for BNA follow-up. Pt did not answer; unable to VM as VM box is full. 1 attempt to cell [phone] and busy signal. [facility] 11-04-2022 Miscellaneous Notes Pre-op_JZ 2 phone call attempts to [phone] to reach pt this am for BNA follow-up. Pt did not answer; unable to VM as VM box is full. 1 attempt to cell [phone] and busy signal. documented in this encounter [facility] 10-26-2022 Miscellaneous Notes Patient notified. Verbalized understanding. ----- Message from Arminda Arriaga APRN.SENIOR MATERIALS ANALYST sent at 10/26/2022 9:54 AM EDT ----- Please advise patient the COVID test was negative. documented in this encounter [facility] 10-25-2022 Note HNO ID: [id number] Author: Piedad Zhong RT(R) Service: ? Author Type: Parking Meter Installer Type: Progress Notes Filed: 10/25/2022 11:59 AM Note Text: Radiology Service Progress Note PATIENT NAME: Kitty Whelan DATE OF SERVICE: October 25, 2022 TIME: 11:48 AM PATIENT IDENTITY VERIFICATION COMPLETED USING TWO (2) IDENTIFIERS: Name and Date of confirmed by patient verbally. FALL SCREENING: Has the patient had 2 falls in the last year or 1 fall with injury or currently using an Ambulatory Assistive Device (Walker, Cane, Wheelchair, Crutches, etc.)? No PATIENT GENDER DATA: Female. status: : No status: NO. PATIENT RELEVANT IMPLANT DATA REVIEWED: Yes RADIOLOGY DEPARTMENT: General X-ray: Exam(s) Completed: Chest X-Ray PERIPHERAL IV DATA: Not applicable SIGNED BY: RT Shashi(R) October 25, 2022 11:48 AM [facility] 10-25-2022 Note HNO ID: [id number] Author: Sourav Hurt MD Service: ? Author Type: Physician Type: Progress Notes Filed: 10/25/2022 12:09 PM Note Text: Patient presents with: Head Congestion: chest congestion, cough x 1 week, increased x 2 days HPI: Feeling sick for 7 days. Mother is sick also. Positive symptoms: Cough, wheezing, shortness of breath during coughing and nasal congestion, right lateral lower Chest pain, Sinus pressure, Nasal Congestion, Rhinorrhea, Post nasal drainage, Fatigue, tussive emesis, Diarrhea, improved sore throat Negative symptoms: Fever, Chills, OTC: Tylenol Has had COVID, last known infection over a year ago. She has used inhalers with colds in the past. Smokes cigarettes. MEDICATIONS: Current Outpatient Medications Medication Sig meloxicam (MOBIC) 15 mg tablet Take 15 mg by mouth. hydrOXYzine HCl (ATARAX) 50 mg tablet Take 50 mg by mouth every 6 hours as needed. FALMINA, 28, 0.1-20 mg-mcg per tablet Take 1 tablet by mouth every afternoon. lamoTRIgine (LAMICTAL) 200 mg tablet Take 1 tablet by mouth every afternoon. topiramate (TOPAMAX) 25 mg tablet Take 1 tablet by mouth every 12 (twelve) hours. ibuprofen (MOTRIN) 800 mg tablet Take 1 tablet by mouth every 8 hours as needed for Pain. Take with food. (Patient not taking: Reported on 10/25/2022) No current facility-administered medications for this visit. ALLERGIES: ALLERGIES No Known Allergies VITALS: BP 132/84 Pulse 106 Temp 36.7 ?C (98.1 ?F) Resp 18 Wt (!) 140.2 kg (309 lb) SpO2 98% PHYSICAL EXAM: GEN: mildly ill appearing HEENT: PERRL, EOMI, conjunctiva clear Ears: canals clear. TMs without erythema, bulge, or effusion Sinuses: tender frontal sinus, tender maxillary sinuses Throat: moist mucous membranes, mild erythema, no exudate Neck: supple, no thyromegaly, no lymphadenopathy HEART: regular rate and rhythm, no murmurs LUNGS: bilateral scattered wheezes, right lung crackles, no increased WOB; wheezy and raspy cough. ASSESSMENT/PLAN: 1. Acute cough - ICD9: 786.2, ICD10: R05.1 (primary diagnosis) 2. Wheezing - ICD9: 786.07, ICD10: R06.2 - XR CHEST 2V FRONTAL/LAT - no acute findings. - suspect viral URI, differential includes COVID-19. - Discussed supportive care treatment with rest, cold medicine, and analgesia. - BENZONATATE 100 MG CAPSULE - Red flags to seek further treatment include chest pain, shortness of breath, and lethargy; in the ER if severe. - COVID NAAT, UPPER RESPIRATORY, ROUTINE Sourav Hurt MD [facility] 10-25-2022 History of Present illness Narrative Patient presents with: Head Congestion: chest congestion, cough x 1 week, increased x 2 days HPI: Feeling sick for 7 days. Mother is sick also. Positive symptoms: Cough, wheezing, shortness of breath during coughing and nasal congestion, right lateral lower Chest pain, Sinus pressure, Nasal Congestion, Rhinorrhea, Post nasal drainage, Fatigue, tussive emesis, Diarrhea, improved sore throat Negative symptoms: Fever, Chills, OTC: Tylenol Has had COVID, last known infection over a year ago. She has used inhalers with colds in the past. Smokes cigarettes. MEDICATIONS: Current Outpatient Medications Medication Sig meloxicam (MOBIC) 15 mg tablet Take 15 mg by mouth. hydrOXYzine HCl (ATARAX) 50 mg tablet Take 50 mg by mouth every 6 hours as needed. FALMINA, 28, 0.1-20 mg-mcg per tablet Take 1 tablet by mouth every afternoon. lamoTRIgine (LAMICTAL) 200 mg tablet Take 1 tablet by mouth every afternoon. topiramate (TOPAMAX) 25 mg tablet Take 1 tablet by mouth every 12 (twelve) hours. ibuprofen (MOTRIN) 800 mg tablet Take 1 tablet by mouth every 8 hours as needed for Pain. Take with food. (Patient not taking: Reported on 10/25/2022) No current facility-administered medications for this visit. ALLERGIES: ALLERGIES No Known Allergies VITALS: BP 132/84 Pulse 106 Temp 36.7 C (98.1 F) Resp 18 Wt (!) 140.2 kg (309 lb) SpO2 98% PHYSICAL EXAM: GEN: mildly ill appearing HEENT: PERRL, EOMI, conjunctiva clear Ears: canals clear. TMs without erythema, bulge, or effusion Sinuses: tender frontal sinus, tender maxillary sinuses Throat: moist mucous membranes, mild erythema, no exudate Neck: supple, no thyromegaly, no lymphadenopathy HEART: regular rate and rhythm, no murmurs LUNGS: bilateral scattered wheezes, right lung crackles, no increased WOB; wheezy and raspy cough. ASSESSMENT/PLAN: 1. Acute cough - ICD9: 786.2, ICD10: R05.1 (primary diagnosis) 2. Wheezing - ICD9: 786.07, ICD10: R06.2 - XR CHEST 2V FRONTAL/LAT - no acute findings. - suspect viral URI, differential includes COVID-19. - Discussed supportive care treatment with rest, cold medicine, and analgesia. - BENZONATATE 100 MG CAPSULE - Red flags to seek further treatment include chest pain, shortness of breath, and lethargy; in the ER if severe. - COVID NAAT, UPPER RESPIRATORY, ROUTINE Sourav Hurt MD documented in this encounter [facility] 10-15-2022 Note Patient: Kitty blackmon Procedure Summary Date: 10/15/22 Room / Location: [facility] [address] [facility] G[facility] Anesthesia Start: 113 Anesthesia Stop: 115 Procedure: EGD WITH BIOPSY Diagnosis: Gastro-esophageal reflux disease without esophagitis (Gastro-esophageal reflux disease without esophagitis [K21.9]) Providers: Charleen Zhu MD Responsible Provider: Yifan Boss MD Anesthesia Type: TIVA ASA Status: 3 Anesthesia Type: TIVA Vitals Value Taken Time BP 127/72 10/15/22 1145 Temp 36.4 ?C (97.5 ?F) 10/15/22 1145 Pulse 80 10/15/22 1145 Resp 16 10/15/22 1145 SpO2 97 % 10/15/22 1145 Anesthesia Post Evaluation Patient location during evaluation: PACU Patient participation: complete - patient participated Level of consciousness: awake and alert Pain management: satisfactory to patient Airway patency: patent Dental Injury: no Cardiovascular status: acceptable, blood pressure returned to baseline and hemodynamically stable Respiratory status: acceptable and spontaneous ventilation Hydration status: euvolemic Nausea/Vomiting: controlled No notable events documented. Patient can be discharged once all PACU criteria has been met. [facility] 10-15-2022 Note Patient: Kitty blackmon Procedure Summary Date: 10/15/22 Room / Location: [facility] [address] / [facility] G[facility] Anesthesia Start: 1133 Anesthesia Stop: 115 Procedure: EGD WITH BIOPSY Diagnosis: Gastro-esophageal reflux disease without esophagitis (Gastro-esophageal reflux disease without esophagitis [K21.9]) Providers: Charleen Zhu MD Responsible Provider: Yifan Boss MD Anesthesia Type: TIVA ASA Status: 3 Anesthesia Type: TIVA Vitals Value Taken Time BP 127/72 10/15/22 1145 Temp 36.4 ?C (97.5 ?F) 10/15/22 1145 Pulse 80 10/15/22 1145 Resp 16 10/15/22 1145 SpO2 97 % 10/15/22 1145 Anesthesia Post Evaluation Patient location during evaluation: PACU Patient participation: waiting for patient participation Level of consciousness: responsive to light touch Pain management: satisfactory to patient Multimodal analgesia pain management approach Airway patency: patent Two or more strategies used to mitigate risk of obstructive sleep apnea Cardiovascular status: acceptable and hemodynamically stable Respiratory status: acceptable, room air and spontaneous ventilation Hydration status: acceptable No notable events documented. MIPS #[phone] PONV Patient did not receive an inhalational anesthetic (XX430) MIPS # 424 Perioperative Temperature Management Anesthesia time was less than 60 minutes (4256F) MIPS #477 Multimodal Pain Management Not emergent case Patient was not administered multimodal pain management (G2149) Patient reports no pain in PACU (G2149) MIPS #404 Anesthesiology Smoking Abstinence The patient is not a current smoker (e.g. cigarette, cigar, pipe, e-cigarette/vaping/marijuana) If no stop here (G9644) I completed my handoff to the receiving clinician during which we: 1. Identified the patient 2. Identified the responsible provider 3. Reviewed the pertinent medical history 4. Discussed the surgical course 5. Reviewed intra-op anesthesia management and issues during anesthesia 6. Set expectations for post-procedure period 7. Allowed opportunity for questions and acknowledgement of understanding. [facility] 10-15-2022 Note Endoscopy Center- [facility] Patient Name: Kitty Whelan Procedure Date: 10/15/2022 11:34 AM Gender: Female Date of : 1995 Age: 27 Admit Type: Outpatient Note Status: Finalized Endoscopist: Charleen Zhu MD, [id number] Procedure: Upper GI endoscopy Indications: Gastro-esophageal reflux disease, Preoperative assessment for bariatric surgery to treat morbid obesity, Morbid Obesity with a BMI of 45 kg/m2 Findings: Mild inflammation was found in the gastric antrum. This was biopsied with a cold forceps for Helicobacter pylori testing. Verification of patient identification for the specimen was done. The gastroesophageal junction was normal. Impression: - Gastritis. Biopsied. - Normal gastroesophageal junction. Recommendation: - Patient has a contact number available for emergencies. The signs and symptoms of potential delayed complications were discussed with the patient. Return to normal activities tomorrow. Written discharge instructions were provided to the patient. - Resume previous diet. - Continue present medications. - Await pathology results. Referring MD: Joaquin Johnson Medicines: Monitored Anesthesia Care Procedure: Pre-Anesthesia Assessment: - The anesthesia plan was to use monitored anesthesia care (MAC). After obtaining informed consent, the endoscope was passed under direct vision. Throughout the procedure, the patient's blood pressure, pulse, and oxygen saturations were monitored continuously. The Endoscope was introduced through the mouth, and advanced to the second part of duodenum. The upper GI endoscopy was accomplished without difficulty. The patient tolerated the procedure well. Complications: No immediate complications. Procedure Code(s): --- Professional --- 76483, Esophagogastroduodenoscopy, flexible, transoral; with biopsy, single or multiple --- Technical --- 08826, Esophagogastroduodenoscopy, flexible, transoral; with biopsy, single or multiple Diagnosis Code(s): --- Professional --- K29.70, Gastritis, unspecified, without bleeding K21.9, Gastro-esophageal reflux disease without esophagitis Z01.818, Encounter for other preprocedural examination E66.01, Morbid (severe) obesity due to excess calories --- Technical --- K29.70, Gastritis, unspecified, without bleeding K21.9, Gastro-esophageal reflux disease without esophagitis Z01.818, Encounter for other preprocedural examination E66.01, Morbid (severe) obesity due to excess calories CPT copyright 2021 [employer]. All rights reserved. The codes documented in this report are preliminary and upon medical biller coder review may be revised to meet current compliance requirements. Attending Participation: I personally performed the entire procedure. Charleen Zhu MD 10/15/2022 11:50:21 AM This report has been signed electronically. Number of Addenda: 0 Note Initiated On: 10/15/2022 11:34 AM [facility] 10-15-2022 Note Patient: Kitty blackmon Procedure Information Date/Time: 10/15/22 1145 Procedure: EGD WITH BIOPSY - 30 MINUTES Location: [address] ENDO SEC 4 / [facility] G[facility]ology Providers: Charleen Zhu MD Relevant Problems No relevant active problems Past Medical History: Past Medical History: No date: Anxiety No date: Arthritis Comment: feet No date: Back pain No date: Depression No date: ZIMMER (dyspnea on exertion) No date: Irregular menstruation No date: Joint pain, knee 09/19/2022: Morbid obesity, unspecified obesity type (HCC) No date: Snoring Past Surgical History: No past surgical history on file. Social History: TOBACCO: reports that she has been smoking cigarettes. She started smoking about 3 months ago. She has been smoking an average of 1 pack per day. She has never used smokeless tobacco. ETOH: reports current alcohol use of about 1.0 - 3.0 standard drink of alcohol per week. Social History Substance and Sexual Activity Drug Use Yes ? Types: Marijuana Pt states she quit smoking 3 days ago Family History: Family History Problem Relation Name Age of Onset ? Obesity Mother ? Hypertension Father ? Heart disease Father ? Diabetes Father ? Obesity Sister ? Cancer Maternal Grandmother Skin cancer ? Obesity Maternal Grandmother ? Stroke Maternal Grandfather ? Heart disease Maternal Grandfather ? Hypertension Maternal Grandfather ? Diabetes Maternal Grandfather ? Obesity Maternal Grandfather ? Diabetes Paternal Grandmother ? Hypertension Paternal Grandmother ? Obesity Paternal Grandmother ? Colon cancer Neg Hx Screening: Having periods Clinical information reviewed: Tobacco Allergies Meds Problems Med Hx Surg Hx OB Status Fam Hx Soc Hx Physical Exam Airway Mallampati: III TM distance: >3 FB Neck ROM: full Mouth Open: normalendotracheal tube not in place Cardiovascular Dental dentition normal Pulmonary Abdominal Anesthesia Plan patient is NPO appropriate Any family history or previous problems with anesthesia no ASA 3 TIVA Any family history or previous problems with anesthesia no The patient is not a current smoker. Anesthetic plan and risks discussed with patient. DOUG Screening Labs: No results found for: WBC, HGB, HCT, MCV, PLT No results found for: NA, K, CL, CO2, BUN, CREATININE, GLUCOSE, CALCIUM, PROT, BILIRUBINFL, ALKPHOS, AST, ALT, EGFR, GLOB Pain Score: 0 - No pain No echocardiogram results found for the past 14 days No results found for this or any previous visit. [facility] 10-15-2022 Note Formatting of this n ote might be different from the original. [facility] Patient Name: Kitty Whelan Procedure Date: 10/15/2022 11:34 AM Gender: Female Date of : 1995 Age: 27 Admit Type: Outpatient Note Status: Finalized Endoscopist: Charleen Zhu MD, [id number] Procedure: Upper GI endoscopy Indications: Gastro-esophageal reflux disease, Preoperative assessment for bariatric surgery to treat morbid obesity, Morbid Obesity with a BMI of 45 kg/m2 Findings: Mild inflammation was found in the gastric antrum. This was biopsied with a cold forceps for Helicobacter pylori testing. Verification of patient identification for the specimen was done. The gastroesophageal junction was normal. Impression: - Gastritis. Biopsied. - Normal gastroesophageal junction. Recommendation: - Patient has a contact number available for emergencies. The signs and symptoms of potential delayed complications were discussed with the patient. Return to normal activities tomorrow. Written discharge instructions were provided to the patient. - Resume previous diet. - Continue present medications. - Await pathology results. Referring MD: Joaquin Johnson Medicines: Monitored Anesthesia Care Procedure: Pre-Anesthesia Assessment: - The anesthesia plan was to use monitored anesthesia care (MAC). After obtaining informed consent, the endoscope was passed under direct vision. Throughout the procedure, the patient's blood pressure, pulse, and oxygen saturations were monitored continuously. The Endoscope was introduced through the mouth, and advanced to the second part of duodenum. The upper GI endoscopy was accomplished without difficulty. The patient tolerated the procedure well. Complications: No immediate complications. Procedure Code(s): --- Professional --- 29183, Esophagogastroduodenoscopy, flexible, transoral; with biopsy, single or multiple --- Technical --- 95514, Esophagogastroduodenoscopy, flexible, transoral; with biopsy, single or multiple Diagnosis Code(s): --- Professional --- K29.70, Gastritis, unspecified, without bleeding K21.9, Gastro-esophageal reflux disease without esophagitis Z01.818, Encounter for other preprocedural examination E66.01, Morbid (severe) obesity due to excess calories --- Technical --- K29.70, Gastritis, unspecified, without bleeding K21.9, Gastro-esophageal reflux disease without esophagitis Z01.818, Encounter for other preprocedural examination E66.01, Morbid (severe) obesity due to excess calories CPT copyright 2021 [employer]. All rights reserved. The codes documented in this report are preliminary and upon medical biller coder review may be revised to meet current compliance requirements. Attending Participation: I personally performed the entire procedure. Charleen Zhu MD 10/15/2022 11:50:21 AM This report has been signed electronically. Number of Addenda: 0 Note Initiated On: 10/15/2022 11:34 AM [place] [facility] 10-15-2022 Note Formatting of this n ote might be different from the original. [facility] Kitty [facility] Procedure Date: 10/15/2022 11:34 AM Gender: Female Date of : 1995 Age: 27 Admit Type: Outpatient Note Status: Finalized Endoscopist: Charleen Zhu MD, [id number] Procedure: Upper GI endoscopy Indications: Gastro-esophageal reflux disease, Preoperative assessment for bariatric surgery to treat morbid obesity, Morbid Obesity with a BMI of 45 kg/m2 Findings: Mild inflammation was found in the gastric antrum. This was biopsied with a cold forceps for Helicobacter pylori testing. Verification of patient identification for the specimen was done. The gastroesophageal junction was normal. Impression: - Gastritis. Biopsied. - Normal gastroesophageal junction. Recommendation: - Patient has a contact number available for emergencies. The signs and symptoms of potential delayed complications were discussed with the patient. Return to normal activities tomorrow. Written discharge instructions were provided to the patient. - Resume previous diet. - Continue present medications. - Await pathology results. Referring MD: Joaquin Johnson Medicines: Monitored Anesthesia Care Procedure: Pre-Anesthesia Assessment: - The anesthesia plan was to use monitored anesthesia care (MAC). After obtaining informed consent, the endoscope was passed under direct vision. Throughout the procedure, the patient's blood pressure, pulse, and oxygen saturations were monitored continuously. The Endoscope was introduced through the mouth, and advanced to the second part of duodenum. The upper GI endoscopy was accomplished without difficulty. The patient tolerated the procedure well. Complications: No immediate complications. Procedure Code(s): --- Professional --- 95374, Esophagogastroduodenoscopy, flexible, transoral; with biopsy, single or multiple --- Technical --- 94000, Esophagogastroduodenoscopy, flexible, transoral; with biopsy, single or multiple Diagnosis Code(s): --- Professional --- K29.70, Gastritis, unspecified, without bleeding K21.9, Gastro-esophageal reflux disease without esophagitis Z01.818, Encounter for other preprocedural examination E66.01, Morbid (severe) obesity due to excess calories --- Technical --- K29.70, Gastritis, unspecified, without bleeding K21.9, Gastro-esophageal reflux disease without esophagitis Z01.818, Encounter for other preprocedural examination E66.01, Morbid (severe) obesity due to excess calories CPT copyright 2021 [employer]. All rights reserved. The codes documented in this report are preliminary and upon medical biller coder review may be revised to meet current compliance requirements. Attending Participation: I personally performed the entire procedure. Charleen Zhu MD 10/15/2022 11:50:21 AM This report has been signed electronically. Number of Addenda: 0 Note Initiated On: 10/15/2022 11:34 AM [facility] 10-15-2022 Miscellaneous Notes [facility] Kitty [place] Procedure Date: 10/15/2022 11:34 AM Gender: Female Date of : 1995 Age: 27 Admit Type: Outpatient Note Status: Finalized Endoscopist: Charleen Zhu MD, [id number] Procedure: Upper GI endoscopy Indications: Gastro-esophageal reflux disease, Preoperative assessment for bariatric surgery to treat morbid obesity, Morbid Obesity with a BMI of 45 kg/m2 Findings: Mild inflammation was found in the gastric antrum. This was biopsied with a cold forceps for Helicobacter pylori testing. Verification of patient identification for the specimen was done. The gastroesophageal junction was normal. Impression: - Gastritis. Biopsied. - Normal gastroesophageal junction. Recommendation: - Patient has a contact number available for emergencies. The signs and symptoms of potential delayed complications were discussed with the patient. Return to normal activities tomorrow. Written discharge instructions were provided to the patient. - Resume previous diet. - Continue present medications. - Await pathology results. Referring MD: Joaquin Johnson Medicines: Monitored Anesthesia Care Procedure: Pre-Anesthesia Assessment: - The anesthesia plan was to use monitored anesthesia care (MAC). After obtaining informed consent, the endoscope was passed under direct vision. Throughout the procedure, the patient's blood pressure, pulse, and oxygen saturations were monitored continuously. The Endoscope was introduced through the mouth, and advanced to the second part of duodenum. The upper GI endoscopy was accomplished without difficulty. The patient tolerated the procedure well. Complications: No immediate complications. Procedure Code(s): --- Professional --- 25728, Esophagogastroduodenoscopy, flexible, transoral; with biopsy, single or multiple --- Technical --- 44715, Esophagogastroduodenoscopy, flexible, transoral; with biopsy, single or multiple Diagnosis Code(s): --- Professional --- K29.70, Gastritis, unspecified, without bleeding K21.9, Gastro-esophageal reflux disease without esophagitis Z01.818, Encounter for other preprocedural examination E66.01, Morbid (severe) obesity due to excess calories --- Technical --- K29.70, Gastritis, unspecified, without bleeding K21.9, Gastro-esophageal reflux disease without esophagitis Z01.818, Encounter for other preprocedural examination E66.01, Morbid (severe) obesity due to excess calories CPT copyright 2021 [employer]. All rights reserved. The codes documented in this report are preliminary and upon medical biller coder review may be revised to meet current compliance requirements. Attending Participation: I personally performed the entire procedure. Charleen Zhu MD 10/15/2022 11:50:21 AM This report has been signed electronically. Number of Addenda: 0 Note Initiated On: 10/15/2022 11:34 AM documented in this encounter [facility] 10-12-2022 Note [facility] - Surgery [facility] Physicians Surgery PATIENT NAME: Kitty Whelan DATE OF : 1995 ADMISSION DATE: 10/15/2022 10:46 AM TODAY'S DATE: 10/15/2022 HISTORY OF PRESENT ILLNESS: The patient is a 27 y.o. female who presents with morbid obesity and a Body mass index is 45.05 kg/m?.. She is undergoing upper gastrointestinal endoscopy with biopsies for Helicobacter pylori. I thoroughly reviewed the patient's medical history, family history, social history and review of systems with the patient today in the office. Please see medical record for pertinent positives. Past Medical History: Past Medical History: Diagnosis Date Anxiety Arthritis feet Back pain Depression ZIMMER (dyspnea on exertion) Irregular menstruation Joint pain, knee Morbid obesity, unspecified obesity type (HCC) 09/19/2022 Snoring Past Surgical History: History reviewed. No pertinent surgical history. Current Medications: Current Facility-Administered Medications Medication Dose Route Frequency Provider Last Rate Last Admin sodium chloride 0.9 % infusion 50 mL/hr IntraVENous Continuous NAIN Wiley 50 mL/hr at 10/15/22 1103 50 mL/hr at 10/15/22 1103 Prior to Admission medications Medication Sig Start Date End Date Taking? Authorizing Provider Falmina 0.1-20 MG-MCG tablet Take 1 tablet by mouth daily. 09/05/22 Historical Provider, hydrOXYzine HCl (Atarax) 50 MG tablet Take 50 mg by mouth every 6 hours as needed. 09/05/22 Historical Provider, lamoTRIgine (LaMICtal) 100 MG tablet TAKE 1 TABLET BY MOUTH ONCE DAILY for 1 week, then 1 and 1/2 tablets by mouth once daily for 1 week, then 2 tablets daily thereafter 09/05/22 Historical Provider, meloxicam (Mobic) 15 MG tablet Take 15 mg by mouth daily. 09/05/22 Historical Provider, Allergies: No Known Allergies Social History: Social History Socioeconomic History Marital status: Single Spouse name: Not on file Number of children: Not on file Years of education: Not on file Highest education level: Not on file Occupational History Not on file Tobacco Use Smoking status: Every Day Packs/day: 1.00 Types: Cigarettes Start date: 07/14/2022 Smokeless tobacco: Never Vaping Use Vaping Use: Never used Substance and Sexual Activity Alcohol use: Yes Alcohol/week: 1.0 - 3.0 standard drink of alcohol Types: 1 - 3 Standard drinks or equivalent per week Drug use: Yes Types: Marijuana Sexual activity: Yes Partners: Male control/protection: Other Other Topics Concern Not on file Social History Narrative Not on file Social Determinants of Health Financial Resource Strain: Not on file Food Insecurity: Not on file Transportation Needs: Not on file Physical Activity: Not on file Stress: Not on file Social Connections: Not on file Intimate Partner Violence: Not At Risk (10/15/2022) Humiliation, Afraid, Rape, and Kick questionnaire Fear of Current or Ex-Partner: No Emotionally Abused: No Physically Abused: No Sexually Abused: No Housing Stability: Not on file Family History: Family History Problem Relation Name Age of Onset Obesity Mother Hypertension Father Heart disease Father Diabetes Father Obesity Sister Cancer Maternal Grandmother Skin cancer Obesity Maternal Grandmother Stroke Maternal Grandfather Heart disease Maternal Grandfather Hypertension Maternal Grandfather Diabetes Maternal Grandfather Obesity Maternal Grandfather Diabetes Paternal Grandmother Hypertension Paternal Grandmother Obesity Paternal Grandmother Colon cancer Neg Hx REVIEW OF SYSTEMS: CONSTITUTIONAL: Negative for fatigue, and unexpected weight change RESPIRATORY: Negative for cough, SOB, and wheezing CARDIOVASCULAR: Negative for chest pains and palpatations GASTROINTESTINAL: Negative for abdominal bloating, constipation, diarrhea. Positive for gastroesophageal reflux disease HEMATOLOGIC/LYMPHATIC: Negative for adenopathy. Does not bruise/bleed easily. NEUROLOGICAL: Negative for seizures and syncope * All other ROS reviewed see HPI for pertinent positives and negatives. PHYSICAL EXAM: VITALS: BP (!) 162/80 Pulse 80 Temp 36.4 ?C (97.6 ?F) (Temporal) Resp 18 Ht 5' 10 (1.778 m) Wt (!) 314 lb (142 kg) SpO2 99% BMI 45.05 kg/m? GENERAL: Oriented to person, place, and time. Appears well nourished. No distress ENT: Normocepalic,atraumatic, without obvious abnormality NECK: supple, symmetrical, trachea midline LUNGS: Resp effort easy and unlabored, breath sounds normal CARDIOVASCULAR: RRR, No murmur ABDOMEN: Soft, non-tender, no open wounds. MUSCULOSKELETAL: Normal range of motion, ambulatory without assistance NEUROLOGIC: No focal neurologic deficits IMPRESSION/RECOMMENDATIONS: Morbid obesity with Body mass index is 45.05 kg/m?.. Plan for EGD with Bx Patient counseled on risks, benefits, and alternatives of treatment plan at length. Patient st (more content not included)... [facility] 10-12-2022 History and physical note Images from the original note were not included. [facility] Physicians Surgery PATIENT NAME: Kitty Whelan DATE OF : 1995 ADMISSION DATE: 10/15/2022 10:46 AM TODAY'S DATE: 10/15/2022 HISTORY OF PRESENT ILLNESS: The patient is a 27 y.o. female who presents with morbid obesity and a Body mass index is 45.05 kg/m .. She is undergoing upper gastrointestinal endoscopy with biopsies for Helicobacter pylori. I thoroughly reviewed the patient's medical history, family history, social history and review of systems with the patient today in the office. Please see medical record for pertinent positives. Past Medical History: Past Medical History: Diagnosis Date Anxiety Arthritis feet Back pain Depression ZIMMER (dyspnea on exertion) Irregular menstruation Joint pain, knee Morbid obesity, unspecified obesity type (HCC) 09/19/2022 Snoring Past Surgical History: History reviewed. No pertinent surgical history. Current Medications: Current Facility-Administered Medications Medication Dose Route Frequency Provider Last Rate Last Admin sodium chloride 0.9 % infusion 50 mL/hr IntraVENous Continuous NAIN Wiley 50 mL/hr at 10/15/22 1103 50 mL/hr at 10/15/22 1103 Prior to Admission medications Medication Sig Start Date End Date Taking? Authorizing Provider Falmina 0.1-20 MG-MCG tablet Take 1 tablet by mouth daily. 09/05/22 Historical Provider, hydrOXYzine HCl (Atarax) 50 MG tablet Take 50 mg by mouth every 6 hours as needed. 09/05/22 Historical Provider, lamoTRIgine (LaMICtal) 100 MG tablet TAKE 1 TABLET BY MOUTH ONCE DAILY for 1 week, then 1 and 1/2 tablets by mouth once daily for 1 week, then 2 tablets daily thereafter 09/05/22 Historical Provider, meloxicam (Mobic) 15 MG tablet Take 15 mg by mouth daily. 09/05/22 Historical Provider, Allergies: No Known Allergies Social History: Social History Socioeconomic History Marital status: Single Spouse name: Not on file Number of children: Not on file Years of education: Not on file Highest education level: Not on file Occupational History Not on file Tobacco Use Smoking status: Every Day Packs/day: 1.00 Types: Cigarettes Start date: 07/14/2022 Smokeless tobacco: Never Vaping Use Vaping Use: Never used Substance and Sexual Activity Alcohol use: Yes Alcohol/week: 1.0 - 3.0 standard drink of alcohol Types: 1 - 3 Standard drinks or equivalent per week Drug use: Yes Types: Marijuana Sexual activity: Yes Partners: Male control/protection: Other Other Topics Concern Not on file Social History Narrative Not on file Social Determinants of Health Financial Resource Strain: Not on file Food Insecurity: Not on file Transportation Needs: Not on file Physical Activity: Not on file Stress: Not on file Social Connections: Not on file Intimate Partner Violence: Not At Risk (10/15/2022) Humiliation, Afraid, Rape, and Kick questionnaire Fear of Current or Ex-Partner: No Emotionally Abused: No Physically Abused: No Sexually Abused: No Housing Stability: Not on file Family History: Family History Problem Relation Name Age of Onset Obesity Mother Hypertension Father Heart disease Father Diabetes Father Obesity Sister Cancer Maternal Grandmother Skin cancer Obesity Maternal Grandmother Stroke Maternal Grandfather Heart disease Maternal Grandfather Hypertension Maternal Grandfather Diabetes Maternal Grandfather Obesity Maternal Grandfather Diabetes Paternal Grandmother Hypertension Paternal Grandmother Obesity Paternal Grandmother Colon cancer Neg Hx REVIEW OF SYSTEMS: CONSTITUTIONAL: Negative for fatigue, and unexpected weight change RESPIRATORY: Negative for cough, SOB, and wheezing CARDIOVASCULAR: Negative for chest pains and palpatations GASTROINTESTINAL: Negative for abdominal bloating, constipation, diarrhea. Positive for gastroesophageal reflux disease HEMATOLOGIC/LYMPHATIC: Negative for adenopathy. Does not bruise/bleed easily. NEUROLOGICAL: Negative for seizures and syncope * All other ROS reviewed see HPI for pertinent positives and negatives. PHYSICAL EXAM: VITALS: BP (!) 162/80 Pulse 80 Temp 36.4 C (97.6 F) (Temporal) Resp 18 Ht 5' 10 (1.778 m) Wt (!) 314 lb (142 kg) SpO2 99% BMI 45.05 kg/m GENERAL: Oriented to person, place, and time. Appears well nourished. No distress ENT: Normocepalic,atraumatic, without obvious abnormality NECK: supple, symmetrical, trachea midline LUNGS: Resp effort easy and unlabored, breath sounds normal CARDIOVASCULAR: RRR, No murmur ABDOMEN: Soft, non-tender, no open wounds. MUSCULOSKELETAL: Normal range of motion, ambulatory without assistance NEUROLOGIC: No focal neurologic deficits IMPRESSION/RECOMMENDATIONS: Morbid obesity with Body mass index is 45.05 kg/m .. Plan for EGD with Bx Patient counseled on risks, benefits, and alternatives of treatment plan at length. Patient states an understanding and willingness to proceed with plan. [facility] 10-12-2022 History and physical note Images from the original note were not included. [facility] Physicians Surgery PATIENT NAME: Kitty Whelan DATE OF : 1995 ADMISSION DATE: 10/15/2022 10:46 AM TODAY'S DATE: 10/15/2022 HISTORY OF PRESENT ILLNESS: The patient is a 27 y.o. female who presents with morbid obesity and a Body mass index is 45.05 kg/m .. She is undergoing upper gastrointestinal endoscopy with biopsies for Helicobacter pylori. I thoroughly reviewed the patient's medical history, family history, social history and review of systems with the patient today in the office. Please see medical record for pertinent positives. Past Medical History: Past Medical History: Diagnosis Date Anxiety Arthritis feet Back pain Depression ZIMMER (dyspnea on exertion) Irregular menstruation Joint pain, knee Morbid obesity, unspecified obesity type (HCC) 09/19/2022 Snoring Past Surgical History: History reviewed. No pertinent surgical history. Current Medications: Current Facility-Administered Medications Medication Dose Route Frequency Provider Last Rate Last Admin sodium chloride 0.9 % infusion 50 mL/hr IntraVENous Continuous NAIN Wiley 50 mL/hr at 10/15/22 1103 50 mL/hr at 10/15/22 1103 Prior to Admission medications Medication Sig Start Date End Date Taking? Authorizing Provider Falmina 0.1-20 MG-MCG tablet Take 1 tablet by mouth daily. 09/05/22 Historical Provider, hydrOXYzine HCl (Atarax) 50 MG tablet Take 50 mg by mouth every 6 hours as needed. 09/05/22 Historical Provider, lamoTRIgine (LaMICtal) 100 MG tablet TAKE 1 TABLET BY MOUTH ONCE DAILY for 1 week, then 1 and 1/2 tablets by mouth once daily for 1 week, then 2 tablets daily thereafter 09/05/22 Historical ProviderMD meloxicam (Mobic) 15 MG tablet Take 15 mg by mouth daily. 09/05/22 Historical Provider, Allergies: No Known Allergies Social History: Social History Socioeconomic History Marital status: Single Spouse name: Not on file Number of children: Not on file Years of education: Not on file Highest education level: Not on file Occupational History Not on file Tobacco Use Smoking status: Every Day Packs/day: 1.00 Types: Cigarettes Start date: 07/14/2022 Smokeless tobacco: Never Vaping Use Vaping Use: Never used Substance and Sexual Activity Alcohol use: Yes Alcohol/week: 1.0 - 3.0 standard drink of alcohol Types: 1 - 3 Standard drinks or equivalent per week Drug use: Yes Types: Marijuana Sexual activity: Yes Partners: Male control/protection: Other Other Topics Concern Not on file Social History Narrative Not on file Social Determinants of Health Financial Resource Strain: Not on file Food Insecurity: Not on file Transportation Needs: Not on file Physical Activity: Not on file Stress: Not on file Social Connections: Not on file Intimate Partner Violence: Not At Risk (10/15/2022) Humiliation, Afraid, Rape, and Kick questionnaire Fear of Current or Ex-Partner: No Emotionally Abused: No Physically Abused: No Sexually Abused: No Housing Stability: Not on file Family History: Family History Problem Relation Name Age of Onset Obesity Mother Hypertension Father Heart disease Father Diabetes Father Obesity Sister Cancer Maternal Grandmother Skin cancer Obesity Maternal Grandmother Stroke Maternal Grandfather Heart disease Maternal Grandfather Hypertension Maternal Grandfather Diabetes Maternal Grandfather Obesity Maternal Grandfather Diabetes Paternal Grandmother Hypertension Paternal Grandmother Obesity Paternal Grandmother Colon cancer Neg Hx REVIEW OF SYSTEMS: CONSTITUTIONAL: Negative for fatigue, and unexpected weight change RESPIRATORY: Negative for cough, SOB, and wheezing CARDIOVASCULAR: Negative for chest pains and palpatations GASTROINTESTINAL: Negative for abdominal bloating, constipation, diarrhea. Positive for gastroesophageal reflux disease HEMATOLOGIC/LYMPHATIC: Negative for adenopathy. Does not bruise/bleed easily. NEUROLOGICAL: Negative for seizures and syncope * All other ROS reviewed see HPI for pertinent positives and negatives. PHYSICAL EXAM: VITALS: BP (!) 162/80 Pulse 80 Temp 36.4 C (97.6 F) (Temporal) Resp 18 Ht 5' 10 (1.778 m) Wt (!) 314 lb (142 kg) SpO2 99% BMI 45.05 kg/m GENERAL: Oriented to person, place, and time. Appears well nourished. No distress ENT: Normocepalic,atraumatic, without obvious abnormality NECK: supple, symmetrical, trachea midline LUNGS: Resp effort easy and unlabored, breath sounds normal CARDIOVASCULAR: RRR, No murmur ABDOMEN: Soft, non-tender, no open wounds. MUSCULOSKELETAL: Normal range of motion, ambulatory without assistance NEUROLOGIC: No focal neurologic deficits IMPRESSION/RECOMMENDATIONS: Morbid obesity with Body mass index is 45.05 kg/m .. Plan for EGD with Bx Patient counseled on risks, benefits, and alternatives of treatment plan at length. Patient states an understanding and willingness to proceed with plan. documented in this encounter [facility] 10-07-2022 History of Present illness Narrative [facility] BARIATRIC NUTRITION ASSESSMENT / DIET & EXERCISE SURGICAL WEIGHT LOSS MANAGEMENT PROGRAM Date: 10/07/22 Patient Name: Kitty Whelan Date of : 1995 Type of Assessment: [x] Surgical Patient - Pre-op Initial Assessment Weight Metrics: Today's Height: 5' 8.75 (1.746 m) Today's Weight: (!) 314 lb 6.4 oz (143 kg) Today's BMI: Body mass index is 46.77 kg/m . Surgeon: Dr. Zhu Surgical Procedure: [x] Sleeve Gastrectomy Preop Diet: 2 wks Medical History: Past Medical History: Diagnosis Date Anxiety Arthritis feet Back pain Depression ZIMMER (dyspnea on exertion) Irregular menstruation Joint pain, knee Morbid obesity, unspecified obesity type (HCC) 09/19/2022 Snoring Current Medications: has a current medication list which includes the following prescription(s): falmina, hydroxyzine hcl, lamotrigine, and meloxicam. Weight History Patient has been considering weight loss surgery for 9 years Primary reason(s) for weight loss improve quality of life Number of years over weight > 10 PREVIOUS WEIGHT LOSS ATTEMPTS Method When Amount lost Amount regained Most successful Exercise 2 years 8 lb all Post Weight Loss Surgery- Type: Patient's current diet quality, relative to the Past weight loss surgery diet is: [x] N/A CURRENT MEAL PLANNING Self Mom Meals planned by X X Food shopping done by X X Meals cooked by X X EXERCISE/CURRENT ACTIVITY Active with ADLs; no formal exercise CURRENT EATING HABITS/ADDITIONAL INFORMATION 24 Hour Recall completed: Yes Breakfast: 8:00 am left over pizza 2 pc Lunch: none Dinner: burger, no sherita Drinks: 3-4 bottles water per day; no pop; drinks apple or orange juice 1x/wk; 3 drinks per week-wine Comments: 4 cups caffeinated coffee per day; eats about 2x/day-snacks more than eats: eggs SUPPORT SYSTEM A. Family knowledgeable about/supportive of plans for weight loss surgery: Yes B. Patient understands that they must have someone in their home 24/ for the first week following surgery, or that they must be able to stay with someone for the first week Yes C. Co-workers knowledgeable about/supportive of plans for weight loss surgery: N/A KNOWLEDGE AND EDUCATION ASSESSMENT AND PLAN Patient's level of knowledge regarding the changes that will have to be made in their diet following weight loss surgery is: [x] Excellent - patient is well informed. Current eating practices that will require change with surgery: Meal frequency; fluid type RECOMMENDATIONS AND PLAN [x] Educational Materials Provided [x]Strategies for Eating handout given to and discussed with patient [x] Anticipate clearing patient for weight loss surgery, but need to see patient again: [x] after patient reviews educational materials [x] See goals noted below Diagnoses: Obesity Note: Pt and mom present for initial BNA. Mom had WLS with Dr. Portillo D/E to begin 10/17/2022-6M; pt may be changing insurance, which may only require 3M D/E. Per diet recall and pt interview, pt eats about 2x/day, on average. Pt drinks coffee, not q day, however at times is larger amounts (ie: 4 cups). Pt does drink 48-64 oz water per day. Currently no exercise; However, is active with ADLs. Current labs N/A-will monitor. Reviewed BNA packet and rationale for post-op bariatric diet protocol. Pt agreeable to, and aided in developing, the goals as noted below. Goals: Increase meal frequency- try to eat within 1 hour being awake and q 3 hour; protein q meal/snack 2. Slow down at meal time 3. Eventually switch to decaf coffee Materials Provided: BNA packet No Cook Meals Carb+Pro snack list Follow up: 4 week-Telephone visit Pt encouraged to call/MyChart with questions. Bariatric Nutrition Assessment completed by: Bing Baltazar RD documented in this encounter [facility] [employer] 09-27-2022 Note Addended by: NIRAJ BENJAMIN on: 09/27/2022 10:47 AM Modules accepted: Orders [facility] 09-27-2022 Note Addended by: NIRAJ BENJAMIN on: 09/27/2022 10:47 AM Modules accepted: Orders [facility] 09-27-2022 Telephone encounter Note Signed, thanks [facility] 09-27-2022 Miscellaneous Notes Addended by: NIRAJ BENJAMIN on: 09/27/2022 10:47 AM Modules accepted: Orders Signed, thanks Addended by: ODALYS SAAVEDRA on: 09/27/2022 07:20 AM Modules accepted: Orders Orders pended, PRE OP CHECK LIST SCANNED TO MEDIA, EGD order sent to ALS. Plan: I have recommended proceeding with the evaluation, workup and strategic solutions consultant preoperative consultations and testing for the primary procedure as outlined below: BARIATRIC AND METABOLIC SURGERY [facility] PATIENT SUMMARY Kitty Zhu 27 y.o. female with Body mass index is 46.95 kg/m . Planned Procedures: Laparoscopic Sleeve Gastrectomy DM[] HTN[] DOUG[] GERD[] HL[] OA[] TOB[x] Date of Surgery: TBD [facility] INITIAL PRE-OP TESTING ORDERS/ RESULTS Labwork [x] CMP, TSH, Fasting Lipid Profile, Mg, Zinc, Vit B1 (whole blood), Vit B12, 25-OH Vit D, Fe, Ferritin, Folate, Hgb A1c EGD [x] Dx: [] GERD [x] Dyspepsia [] Other [] Not ordered Pathology [x] H. pylori [] Negative [] Positive [] Stool Antigen UGI [x] US Abdomen [x] [] S/p fouzia [] Not ordered DOUG eval [] [] On CPAP / Obtain settings Toxicology [x] [x] Urine drug screen/ETOH [x] Nicotine Additional [] INITIAL CONSULTATIONS ORDERED CLEARANCE / MANAGEMENT Psychology [x] Dietitian [x] Cardiology [x] Pulmonary [x] Others [] []Heme/Onc []Pain mgmt []Other: PSD [x] Physician supervised diet: []None []3 mos [x]6 mos Preop diet [x] Preop low calorie diet: []1 wk [x]2 wks [] Other: FINAL PRE-OP TESTING ORDERS RESULTS Labwork [x] [x] CBC [x]BMP [x]Serum Nicotine / Cotinine EKG [x] CXR [] POST-OP MEDICATIONS Ulcer Ppx [] Omeprazole 20 mg PO []QD Gallstone Ppx [] Ursodiol 300 mg []BID DVT Ppx [] DVT prophylaxis per final preop visit estimated risk Estimated calculated risk: % Schedule final pre-operative office visit with surgeon, pre-operative education class, and pre-operative exercise class prior to date of surgery She is a daily tobacco user and we will proceed with LSG as a result. I met with her today to discuss risks and benefits of laparoscopic weight loss surgery, the risks and benefits are outlined as above and visual aids were used to describe the procedure. I personally performed the evaluation and management of Kitty Whelan in the development of a treatment plan for this patient. I personally interviewed the patient and performed an individual physical examination. In addition, I discussed the patient's condition and treatment options with them. I have also reviewed and agree with the past medical, family and social history unless otherwise noted. All of the patient's questions were answered. I discussed/counseled the patient regarding the risks and benefits of surgery as well as the preoperative and postoperative care plan for this patient. The patient was seen and examined independently and relevant data reviewed by myself. A full chart review was performed. Due to the complexity of the patients condition as well as having at least one medical condition as listed above in medical history that is progressing despite medical management, this patient is considered high medical decision making and surgical intervention is necessary to help decrease the risk of continued chronic illness. The patient was seen and examined independently and relevant data reviewed by myself. A full chart review was performed. Patient Care Team: Joaquin Johnson as PCP - General (Family Medicine) Charleen Zhu MD as Surgeon (General Surgery) Initial New [facility] surgical patient Navigation & Financial Counseling Discussion Patient Communication: In office SURGEON: [x] ELBERT [] AD [] MP [] TB [] LM PROCEDURE: [] LRYGB [] LSG [] JAMAL-S [] JAMAL [] UNDECIDED [] REV: SPECIFY: Confirmed pt wants to continue with surgical program/plan [] YES [] NO (complete program withdrawal note/process) CO-MORBIDS: [] NONE [] DM []HTN [] DOUG []GERD [] OTH: PRIVATE PAY: [] NO []YES DATE OF INITIAL BENEFITS VERIFICATION: TRANSFER FU: [] YES [] NO PRIMARY INSURANCE: Pay[place] / Plan: [place] ODM / Product Type: Medicaid HMO / BENEFIT ON PLAN: [] NO [] YES BENEFIT MAX: [] NO [] YES -- BENEFIT MAX: $ EMPLOYER: DIET AND EXERCISE (DE) REQUIREMENT PRIMARY [] NONE [x]3M [] 6M []9M [] Medicare 4 Months [] SPR (3M) []OTHER: SECONDARY INSURANCE: BENEFIT ON PLAN: [] NO [] YES BENEFIT MAX: [] NO [] YES -- BENEFIT MAX: $ AUTH REQUIRED FROM SECONDARY [] NO [] YES DIET AND EXERCISE REQUIREMENT SECONDARY [] NONE []3M [] 6M [] Medicare 4 months [] SPR (3M) []OTHER: ___ [x] Discussed with patient: Financial cost overview (document signed and pt given copy at new pt consult visit with surgeon), Initial appointments: Bariatric Nutrition Assessment (BNA) & Diet and Exercise (DE) Patient to look for yellow envelope in mail. This yellow envelope will contain orders for labs, testing and required clearances. Pt encouraged to complete early in program to prevent delays. Encourage blood work to be draw by 1st DE appointment. [x] Reviewed OOP cost, including: [] Optifast cost of approximately $130-140/week x weeks immediately prior to surgery - used to induce rapid weight loss which results in decrease in size of liver and therefore facilitates laparoscopically surgery approach. [x] Overview of inpatient admission benefits - estimated inpatient co-pays, deductibles and/or co-insurance - Estimated OOP costs form reviewed with patient, and copy given to patient at new pt visit. [x] Reviewed next steps with patient: 1) Scheduled at new pt surgeon visit: Manager Costing (RD) for a Nutrition Assessment (BNA) and Pre-operative Diet and Exercise (DE) appointment #1. [x] Patient reminded to arrive 15 minutes early for check in. Late arrivals may need to be rescheduled. 2) Schedule: Diet and Exercise Apt #2 only scheduled after initial BNA and DE completed, 3) Behavioral Health apt scheduled after DE started. Reviewed rational and goal of Behavioral Health appointments. 4) [x] Reinforced need to cancel any WMI appointments 48 hours in advance. Cautioned NS/Same day cancellations may result in delay in program or program completion hold. Noted: DE series needs to be a monthly series or insurance company may require repeat of the entire series. 5) [x] Smoker/tobacco products including vaping: reviewed need for cessation before surgery clearance and life long abstinence after surgery for best outcomes. Patient navigation to surgery: [x] Explained to patient that average time from initial consult to date of surgery can be 6-8 months. - Process can take longer if there are cancelled appointments, delays in testing and/or additional clearances that needs to be completed. - Reviewed importance of patient active engagement in making and keeping appointments to keep the process moving. - Reinforced need to cancel appointments at least 48 hours in advance. Reviewed that instances of No Shows and Same Day Appointment Cancellations may result in program/surgery delay or hold. [x] Patient advised of importance of having voicemail and MyChart for office communications and lab/testing results before and after surgery. documented in this encounter [facility] 09-27-2022 Note Plan: I have recommended proceeding with the evaluation, workup and strategic solutions consultant preoperative consultations and testing for the primary procedure as outlined below: BARIATRIC AND METABOLIC SURGERY [facility] PATIENT SUMMARY Kitty Zhu 27 y.o. female with Body mass index is 46.95 kg/m?. Planned Procedures: Laparoscopic Sleeve Gastrectomy DM[] HTN[] DOUG[] GERD[] HL[] OA[] TOB[x] Date of Surgery: TBD [facility] INITIAL PRE-OP TESTING ORDERS/ RESULTS Labwork [x] CMP, TSH, Fasting Lipid Profile, Mg, Zinc, Vit B1 (whole blood), Vit B12, 25-OH Vit D, Fe, Ferritin, Folate, Hgb A1c EGD [x] Dx: [] GERD [x] Dyspepsia [] Other [] Not ordered Pathology [x] H. pylori [] Negative [] Positive [] Stool Antigen UGI [x] US Abdomen [x] [] S/p fouzia [] Not ordered DOUG eval [] [] On CPAP / Obtain settings Toxicology [x] [x] Urine drug screen/ETOH [x] Nicotine Additional [] INITIAL CONSULTATIONS ORDERED CLEARANCE / MANAGEMENT Psychology [x] Dietitian [x] Cardiology [x] Pulmonary [x] Others [] []Heme/Onc []Pain mgmt []Other: PSD [x] Physician supervised diet: []None []3 mos [x]6 mos Preop diet [x] Preop low calorie diet: []1 wk [x]2 wks [] Other: FINAL PRE-OP TESTING ORDERS RESULTS Labwork [x] [x] CBC [x]BMP [x]Serum Nicotine / Cotinine EKG [x] CXR [] POST-OP MEDICATIONS Ulcer Ppx [] Omeprazole 20 mg PO []QD Gallstone Ppx [] Ursodiol 300 mg []BID DVT Ppx [] DVT prophylaxis per final preop visit estimated risk Estimated calculated risk: % Schedule final pre-operative office visit with surgeon, pre-operative education class, and pre-operative exercise class prior to date of surgery She is a daily tobacco user and we will proceed with LSG as a result. I met with her today to discuss risks and benefits of laparoscopic weight loss surgery, the risks and benefits are outlined as above and visual aids were used to describe the procedure. I personally performed the evaluation and management of Kitty Whelan in the development of a treatment plan for this patient. I personally interviewed the patient and performed an individual physical examination. In addition, I discussed the patient's condition and treatment options with them. I have also reviewed and agree with the past medical, family and social history unless otherwise noted. All of the patient's questions were answered. I discussed/counseled the patient regarding the risks and benefits of surgery as well as the preoperative and postoperative care plan for this patient. The patient was seen and examined independently and relevant data reviewed by myself. A full chart review was performed. Due to the complexity of the patients condition as well as having at least one medical condition as listed above in medical history that is progressing despite medical management, this patient is considered high medical decision making and surgical intervention is necessary to help decrease the risk of continued chronic illness. The patient was seen and examined independently and relevant data reviewed by myself. A full chart review was performed. Patient Care Team: Joaquin Johnson as PCP - General (Family Medicine) Charleen Zhu MD as Surgeon (General Surgery) [facility] 09-27-2022 Note Addended by: Trisha SAAVEDRA on: 09/27/2022 07:20 AM Modules accepted: Orders [facility] 09-27-2022 Note Addended by: Trisha SAAVEDRA on: 09/27/2022 07:20 AM Modules accepted: Orders [facility] 09-27-2022 Telephone encounter Note Orders pended, PRE OP CHECK LIST SCANNED TO MEDIA, EGD order sent to ALS. T [facility] 09-27-2022 Telephone encounter Note Plan: I have recommended proceeding with the evaluation, workup and strategic solutions consultant preoperative consultations and testing for the primary procedure as outlined below: BARIATRIC AND METABOLIC SURGERY [facility] PATIENT SUMMARY Kitty Zhu 27 y.o. female with Body mass index is 46.95 kg/m . Planned Procedures: Laparoscopic Sleeve Gastrectomy DM[] HTN[] DOUG[] GERD[] HL[] OA[] TOB[x] Date of Surgery: [facility] INITIAL PRE-OP TESTING ORDERS/ RESULTS Labwork [x] CMP, TSH, Fasting Lipid Profile, Mg, Zinc, Vit B1 (whole blood), Vit B12, 25-OH Vit D, Fe, Ferritin, Folate, Hgb A1c EGD [x] Dx: [] GERD [x] Dyspepsia [] Other [] Not ordered Pathology [x] H. pylori [] Negative [] Positive [] Stool Antigen UGI [x] US Abdomen [x] [] S/p fouzia [] Not ordered DOUG eval [] [] On CPAP / Obtain settings Toxicology [x] [x] Urine drug screen/ETOH [x] Nicotine Additional [] INITIAL CONSULTATIONS ORDERED CLEARANCE / MANAGEMENT Psychology [x] Dietitian [x] Cardiology [x] Pulmonary [x] Others [] []Heme/Onc []Pain mgmt []Other: PSD [x] Physician supervised diet: []None []3 mos [x]6 mos Preop diet [x] Preop low calorie diet: []1 wk [x]2 wks [] Other: FINAL PRE-OP TESTING ORDERS RESULTS Labwork [x] [x] CBC [x]BMP [x]Serum Nicotine / Cotinine EKG [x] CXR [] POST-OP MEDICATIONS Ulcer Ppx [] Omeprazole 20 mg PO []QD Gallstone Ppx [] Ursodiol 300 mg []BID DVT Ppx [] DVT prophylaxis per final preop visit estimated risk Estimated calculated risk: % Schedule final pre-operative office visit with surgeon, pre-operative education class, and pre-operative exercise class prior to date of surgery She is a daily tobacco user and we will proceed with LSG as a result. I met with her today to discuss risks and benefits of laparoscopic weight loss surgery, the risks and benefits are outlined as above and visual aids were used to describe the procedure. I personally performed the evaluation and management of Kitty Whelan in the development of a treatment plan for this patient. I personally interviewed the patient and performed an individual physical examination. In addition, I discussed the patient's condition and treatment options with them. I have also reviewed and agree with the past medical, family and social history unless otherwise noted. All of the patient's questions were answered. I discussed/counseled the patient regarding the risks and benefits of surgery as well as the preoperative and postoperative care plan for this patient. The patient was seen and examined independently and relevant data reviewed by myself. A full chart review was performed. Due to the complexity of the patients condition as well as having at least one medical condition as listed above in medical history that is progressing despite medical management, this patient is considered high medical decision making and surgical intervention is necessary to help decrease the risk of continued chronic illness. The patient was seen and examined independently and relevant data reviewed by myself. A full chart review was performed. Patient Care Team: Joaquin Johnson as PCP - General (Family Medicine) Charleen Zhu MD as Surgeon (General Surgery) [facility] [employer] 09-19-2022 Note Initial New [facility] surg ical patient Navigation & Financial Counseling Discussion Patient Communication: In office SURGEON: [x] ELBERT [] AD [] MP [] TB [] LM PROCEDURE: [] LRYGB [] LSG [] JAMAL-S [] JAMAL [] UNDECIDED [] REV: SPECIFY: Confirmed pt wants to continue with surgical program/plan [] YES [] NO (complete program withdrawal note/process) CO-MORBIDS: [] NONE [] DM []HTN [] DOUG []GERD [] OTH: PRIVATE PAY: [] NO []YES DATE OF INITIAL BENEFITS VERIFICATION: TRANSFER FU: [] YES [] NO PRIMARY INSURANCE: Pay[place]: [place] / Plan: [place] ODM / Product Type: Medicaid HMO / BENEFIT ON PLAN: [] NO [] YES BENEFIT MAX: [] NO [] YES -- BENEFIT MAX: $ EMPLOYER: DIET AND EXERCISE (DE) REQUIREMENT PRIMARY [] NONE [x]3M [] 6M []9M [] Medicare 4 Months [] SPR (3M) []OTHER: SECONDARY INSURANCE: BENEFIT ON PLAN: [] NO [] YES BENEFIT MAX: [] NO [] YES -- BENEFIT MAX: $ AUTH REQUIRED FROM SECONDARY [] NO [] YES DIET AND EXERCISE REQUIREMENT SECONDARY [] NONE []3M [] 6M [] Medicare 4 months [] SPR (3M) []OTHER: ___ [x] Discussed with patient: Financial cost overview (document signed and pt given copy at new pt consult visit with surgeon), Initial appointments: Bariatric Nutrition Assessment (BNA) & Diet and Exercise (DE) Patient to look for yellow envelope in mail. This yellow envelope will contain orders for labs, testing and required clearances. Pt encouraged to complete early in program to prevent delays. Encourage blood work to be draw by 1st DE appointment. [x] Reviewed OOP cost, including: [] Optifast cost of approximately $130-140/week x weeks immediately prior to surgery - used to induce rapid weight loss which results in decrease in size of liver and therefore facilitates laparoscopically surgery approach. [x] Overview of inpatient admission benefits - estimated inpatient co-pays, deductibles and/or co-insurance - Estimated OOP costs form reviewed with patient, and copy given to patient at new pt visit. [x] Reviewed next steps with patient: 1) Scheduled at new pt surgeon visit: Manager Costing (RD) for a Nutrition Assessment (BNA) and Pre-operative Diet and Exercise (DE) appointment #1. [x] Patient reminded to arrive 15 minutes early for check in. Late arrivals may need to be rescheduled. 2) Schedule: Diet and Exercise Apt #2 only scheduled after initial BNA and DE completed, 3) Behavioral Health apt scheduled after DE started. Reviewed rational and goal of Behavioral Health appointments. 4) [x] Reinforced need to cancel any WMI appointments 48 hours in advance. Cautioned NS/Same day cancellations may result in delay in program or program completion hold. Noted: DE series needs to be a monthly series or insurance company may require repeat of the entire series. 5) [x] Smoker/tobacco products including vaping: reviewed need for cessation before surgery clearance and life long abstinence after surgery for best outcomes. Patient navigation to surgery: [x] Explained to patient that average time from initial consult to date of surgery can be 6-8 months. - Process can take longer if there are cancelled appointments, delays in testing and/or additional clearances that needs to be completed. - Reviewed importance of patient active engagement in making and keeping appointments to keep the process moving. - Reinforced need to cancel appointments at least 48 hours in advance. Reviewed that instances of No Shows and Same Day Appointment Cancellations may result in program/surgery delay or hold. [x] Patient advised of importance of having voicemail and MyChart for office communications and lab/testing results before and after surgery. [facility] 09-19-2022 Telephone encounter Note Initial New [facility] surgical patient Navigation & Financial Counseling Discussion Patient Communication: In office SURGEON: [x] ELBERT [] AD [] MP [] TB [] LM PROCEDURE: [] LRYGB [] LSG [] JAMAL-S [] JAMAL [] UNDECIDED [] REV: SPECIFY: Confirmed pt wants to continue with surgical program/plan [] YES [] NO (complete program withdrawal note/process) CO-MORBIDS: [] NONE [] DM []HTN [] DOUG []GERD [] OTH: PRIVATE PAY: [] NO []YES DATE OF INITIAL BENEFITS VERIFICATION: TRANSFER FU: [] YES [] NO PRIMARY INSURANCE: [place] / Plan: [place] ODM / Product Type: Medicaid HMO / BENEFIT ON PLAN: [] NO [] YES BENEFIT MAX: [] NO [] YES -- BENEFIT MAX: $ EMPLOYER: DIET AND EXERCISE (DE) REQUIREMENT PRIMARY [] NONE [x]3M [] 6M []9M [] Medicare 4 Months [] SPR (3M) []OTHER: SECONDARY INSURANCE: BENEFIT ON PLAN: [] NO [] YES BENEFIT MAX: [] NO [] YES -- BENEFIT MAX: $ AUTH REQUIRED FROM SECONDARY [] NO [] YES DIET AND EXERCISE REQUIREMENT SECONDARY [] NONE []3M [] 6M [] Medicare 4 months [] SPR (3M) []OTHER: ___ [x] Discussed with patient: Financial cost overview (document signed and pt given copy at new pt consult visit with surgeon), Initial appointments: Bariatric Nutrition Assessment (BNA) & Diet and Exercise (DE) Patient to look for yellow envelope in mail. This yellow envelope will contain orders for labs, testing and required clearances. Pt encouraged to complete early in program to prevent delays. Encourage blood work to be draw by 1st DE appointment. [x] Reviewed OOP cost, including: [] Optifast cost of approximately $130-140/week x weeks immediately prior to surgery - used to induce rapid weight loss which results in decrease in size of liver and therefore facilitates laparoscopically surgery approach. [x] Overview of inpatient admission benefits - estimated inpatient co-pays, deductibles and/or co-insurance - Estimated OOP costs form reviewed with patient, and copy given to patient at new pt visit. [x] Reviewed next steps with patient: 1) Scheduled at new pt surgeon visit: Manager Costing (RD) for a Nutrition Assessment (BNA) and Pre-operative Diet and Exercise (DE) appointment #1. [x] Patient reminded to arrive 15 minutes early for check in. Late arrivals may need to be rescheduled. 2) Schedule: Diet and Exercise Apt #2 only scheduled after initial BNA and DE completed, 3) Behavioral Health apt scheduled after DE started. Reviewed rational and goal of Behavioral Health appointments. 4) [x] Reinforced need to cancel any WMI appointments 48 hours in advance. Cautioned NS/Same day cancellations may result in delay in program or program completion hold. Noted: DE series needs to be a monthly series or insurance company may require repeat of the entire series. 5) [x] Smoker/tobacco products including vaping: reviewed need for cessation before surgery clearance and life long abstinence after surgery for best outcomes. Patient navigation to surgery: [x] Explained to patient that average time from initial consult to date of surgery can be 6-8 months. - Process can take longer if there are cancelled appointments, delays in testing and/or additional clearances that needs to be completed. - Reviewed importance of patient active engagement in making and keeping appointments to keep the process moving. - Reinforced need to cancel appointments at least 48 hours in advance. Reviewed that instances of No Shows and Same Day Appointment Cancellations may result in program/surgery delay or hold. [x] Patient advised of importance of having voicemail and MyChart for office communications and lab/testing results before and after surgery. [facility] 09-19-2022 History of Present illness Narrative Images from the original note were not included. [facility] SURGICAL PROGRAM INITIAL EVALUATION Patient: Kitty Whelan Date of : 1995 Service Date: 09/19/22 Patient History: The patient is a pleasant 27 y.o. year old female with morbid obesity, who stands Height: 5' 8.75 (174.6 cm) tall with a weight of Weight: (!) 315 lb 9.6 oz (143 kg) , resulting in a BMI of Body mass index is 46.95 kg/m .. She is interested in discussing weight loss surgery. The patient suffers from multiple co-morbidities as a result of morbid obesity, including: Knee pain, bilateral PMHx: Past Medical History: Diagnosis Date Anxiety Arthritis feet Back pain Depression ZIMMER (dyspnea on exertion) Irregular menstruation Joint pain, knee Morbid obesity, unspecified obesity type (HCC) 09/19/2022 Snoring Co-Morbidity Assessment Co-Morbidity Initial Evaluation Today s Visit Type 2 DM N HTN N DOUG N GERD N Elevated CHO/Lipids N Depression N The patient denies a history of myocardia infarction, deep vein thrombosis, pulmonary embolism, renal failure, hepatic failure, stroke, and seizure. PSHx: History reviewed. No pertinent surgical history. Social History: This patient is with mother for the evaluation today, She does smoke, and does not drink alcohol. ROS: General: negative for - chills, fatigue, fever or malaise Ophthalmic: negative for - blurry vision, double vision or dry eyes ENT: negative for - headaches, hearing change, nasal congestion, sinus pain or sore throat Endocrine: negative for - hot flashes, polydipsia/polyuria or skin changes Respiratory: negative for - cough, shortness of breath or wheezing Cardiovascular: negative for - chest pain, dyspnea on exertion, irregular heartbeat, murmur, rapid heart rate or shortness of breath Gastrointestinal: negative for - change in bowel habits, hemoptysis, hematemesis, hematochezia, dysphagia, nausea, vomiting, diarrhea, constipation, weight loss Genito-Urinary: negative for - dysuria, hematuria, incontinence or nocturia Musculoskeletal: negative for - joint pain, joint stiffness, joint swelling, muscle pain or muscular weakness Neurological: negative for - confusion, dizziness, headaches or numbness/tingling Physical Examination: BP 106/61 Pulse (!) 111 Temp (!) 35.8 C (96.4 F) Resp 18 Ht 5' 8.75 (1.746 m) Wt (!) 315 lb 9.6 oz (143 kg) BMI 46.95 kg/m General: This patient is awake, alert, and oriented, and is in no apparent distress. Respiratory: Non-labored breathing Abdomen: Obese, soft, non-tender, non-distended, without masses. No prior abdominal surgery and no scars are noted. Head and Neck: Obese, normocephalic and atraumatic. Soft and supple. Extremities: No cyanosis, clubbing or edema/ No calf tenderness/No restrictions of movement, is ambulatory without assistance. Neurological: Intact x 4 extremities, no focal deficits notes. Skin: No rashes or lesions noted. Rectal: Not Done Hernia: no hernias found on exam Assessment: The patient has failed multiple attempts at non-surgical weight loss, and is now seeking surgical intervention to promote permanent and consistent weight loss. She has chosen Laparoscopic Sleeve Gastrectomy. She is well educated regarding it, as she has recently viewed our weight loss surgery informational seminar . In anticipation of weight reductive surgery now or in the future, we spent a great deal of time discussing the risks and benefits of, including but not limited to injury to intra-abdominal organs, breakdown of the gastric staple line, the need for re-operative therapy, prolonged hospitalization, mechanical ventilation, and . We discussed the possibility of bleeding, the need for blood transfusions, blood clots, hospital-acquired and intra-abdominal infection, anastomotic stricture, and worsening GERD. And we discussed the need for post-operative visit compliance, behavior modifications and diet changes, protein and vitamin supplementation, as well as routine scheduled and dedicated exercise. We discussed the potential weight loss benefit of approximately 60-70% of her excess body weight at 12-18 months post-op (LRYGB) and 50% of her excess body weight loss at 12-18 months after a LSG, as well as the possibility of insufficient weight loss or weight gain after 2 years post-operative time. Upon completion of all required pre-operative testing we will submit for insurance pre-authorization. All female patients of childbearing age were advised to refrain from becoming for 12-18 months after weight loss surgery. I advised them to discuss with their physician/water quality control engineer regarding contraception to prevent during this period of time after surgery. In addition, all patients were counseled on compliance with prescribed vitamin supplementation, office visit follow-up and compliance with program standards. Plan: I have recommended proceeding with the evaluation, workup and strategic solutions consultant preoperative consultations and testing for the primary procedure as outlined below: BARIATRIC AND METABOLIC SURGERY [facility] PATIENT SUMMARY Kittylavell Zhu 27 y.o. female with Body mass index is 46.95 kg/m . Planned Procedures: Laparoscopic Sleeve Gastrectomy DM[] HTN[] DOUG[] GERD[] HL[] OA[] TOB[x] Date of Surgery: TBD ELBERT JOHNSON INITIAL PRE-OP TESTING ORDERS/ RESULTS Labwork [x] CMP, TSH, Fasting Lipid Profile, Mg, Zinc, Vit B1 (whole blood), Vit B12, 25-OH Vit D, Fe, Ferritin, Folate, Hgb A1c EGD [x] Dx: [] GERD [x] Dyspepsia [] Other [] Not ordered Pathology [x] H. pylori [] Negative [] Positive [] Stool Antigen UGI [x] US Abdomen [x] [] S/p fouzia [] Not ordered DOUG eval [] [] On CPAP / Obtain settings Toxicology [x] [x] Urine drug screen/ETOH [x] Nicotine Additional [] INITIAL CONSULTATIONS ORDERED CLEARANCE / MANAGEMENT Psychology [x] Dietitian [x] Cardiology [x] Pulmonary [x] Others [] []Heme/Onc []Pain mgmt []Other: PSD [x] Physician supervised diet: []None []3 mos [x]6 mos Preop diet [x] Preop low calorie diet: []1 wk [x]2 wks [] Other: FINAL PRE-OP TESTING ORDERS RESULTS Labwork [x] [x] CBC [x]BMP [x]Serum Nicotine / Cotinine EKG [x] CXR [] POST-OP MEDICATIONS Ulcer Ppx [] Omeprazole 20 mg PO []QD Gallstone Ppx [] Ursodiol 300 mg []BID DVT Ppx [] DVT prophylaxis per final preop visit estimated risk Estimated calculated risk: % Schedule final pre-operative office visit with surgeon, pre-operative education class, and pre-operative exercise class prior to date of surgery She is a daily tobacco user and we will proceed with LSG as a result. I met with her today to discuss risks and benefits of laparoscopic weight loss surgery, the risks and benefits are outlined as above and visual aids were used to describe the procedure. I personally performed the evaluation and management of Kitty Whelan in the development of a treatment plan for this patient. I personally interviewed the patient and performed an individual physical examination. In addition, I discussed the patient's condition and treatment options with them. I have also reviewed and agree with the past medical, family and social history unless otherwise noted. All of the patient's questions were answered. I discussed/counseled the patient regarding the risks and benefits of surgery as well as the preoperative and postoperative care plan for this patient. The patient was seen and examined independently and relevant data reviewed by myself. A full chart review was performed. Due to the complexity of the patients condition as well as having at least one medical condition as listed above in medical history that is progressing despite medical management, this patient is considered high medical decision making and surgical intervention is necessary to help decrease the risk of continued chronic illness. The patient was seen and examined independently and relevant data reviewed by myself. A full chart review was performed. Patient Care Team: Joaquin Johnson as PCP - General (Family Medicine) Charleen Zhu MD as Surgeon (General Surgery) [facility] SURGICAL WEIGHT LOSS MANAGEMENT PROGRAM Rooming Note - INITIAL CONSULTATION Patient: Kitty Whelan Date of : 1995 Service Date: 09/19/2022 Patient is here today to discuss the possibility of weight loss surgery. This patient is accompanied by mother for the evaluation today she is interested in discussing weight loss surgery. Physician Supervised D/E: 6M Weight Metrics: Vitals BP: 106/61 Heart Rate: (!) 111 Resp: 18 Temp: (!) 35.8 C (96.4 F) Baseline Measures Initial Height: 5' 8.75 (174.6 cm) Initial Weight: 315 lb 9.6 oz (143 kg) Initial BMI: 46.94 Initial EBW: 171 lb 13.6 oz (78 kg) Initial Waist Cricumference: 49.5in Initial Neck Circumference: 16in Falls Risk Assessment Patient doestake medications which affect BP or mental status Patient does not have newly prescribed or changed dosage of medications within past 30 days which affect BP or mental status Patient has not fallen in the past 2 months Patient does not demonstrate unsteady gait Patient uses the following ambulatory assistive devices: none Patient is low risk for falls. If high or moderate risk, patient instructed not to ambulate independently in the Center, and cord for call light placed within reach of patient. History of Difficult Intubation: No Patient is not on home O2 Completed by: Eleanor Alvarado MA documented in this encounter [facility] Pre-operative laboratory examination- Primary Pre-procedural laboratory examination Morbid obesity with BMI of 45.0-49.9, adult (HCC) Tobacco use Chronic pain of both knees Pre-operative clearance Unspecified pre-operative examination Gastroesophageal reflux disease, unspecified whether esophagitis present Generalized abdominal pain Abdominal pain, generalized Gastro-esophageal reflux disease without esophagitis documented in this encounter [facility] note* Diagnosis Morbid obesity, unspecified obesity type (HCC)- Primary Gastro-esophageal reflux disease without esophagitis documented in this encounter [facility] note* Diagnosis Gastro-esophageal reflux disease without esophagitis Morbid obesity, unspecified obesity type (HCC) Chronic superficial gastritis without bleeding documented in this encounter [facility] note* Diagnosis Morbid obesity, unspecified obesity type (HCC)- Primary documented in this encounter [facility] note* Diagnosis Acute cough- Primary Wheezing documented in this encounter [facility] Discharge instructions* Attachments The following attachments cannot be sent through Care Everywhere. * Upper GI Endoscopy Discharge Instructions (Croatian) [facility] Consultation (Routine) - Pending Review Specialty Diagnoses / Procedures Referred By Khushi che Referred To Contact Pulmonary Disease / Pulmonology Diagnoses Morbid obesity with BMI of 45.0-49.9, adult (HCC) Tobacco use Pre-operative clearance Procedures RI OFFICE/OUTPATIENT NEW HIGH MDM 60-74 MINUTES Niraj Benjamin PA [address] [place] [address] [facility] [address] [place] [address] Referral ID Status Reason Start Date Expiration Date Visits Requested Visits Authorized [id number] Pending Review Specialty Services Required 09/27/2022 09/27/2023 1 1 * Consultation (Elective) - Pending Review Specialty Diagnoses / Procedures Referred By Khushi che Referred To Contact Cardiology Diagnoses Morbid obesity with BMI of 45.0-49.9, adult (HCC) Tobacco use Pre-operative clearance Procedures RI OFFICE/OUTPATIENT NEW HIGH MDM 60-74 MINUTES Niraj Benjamin PA [address] [place] [address] [facility] [address] [place] [address] Referral ID Status Reason Start Date Expiration Date Visits Requested Visits Authorized [id number] Pending Review Specialty Services Required 09/27/2022 09/27/2023 1 1 [facility] Summary Purpose Family History No Family History Records FoundNo Family History Records FoundNo Family History Records Found Advance Directives Latest Code Status on File Code Status Date Activated Date Inactivated Comments Full Code 10/15/2022 10:59 AM 10/15/2022 2:21 PM Latest Code Status on File Code Status Date Activated Date Inactivated Comments Full Code 10/15/2022 10:59 AM 10/15/2022 2:21 PM Additional Source Comments INFORMATION SOURCE (unrecogn ized section and content) DATE CREATED AUTHOR AUTHOR'S ORGANIZ ATION 10/16/2022 [facility] DATE CREATED AUTHOR AUTHOR'S ORGANIZ ATION 10/27/2022 [facility] Reason for Visit (unrecogniz ed section and content) Specialty Diagnoses / Procedures Referred By Contac t Referred To Contact Bariatrics Diagnoses Morbid (severe) obesity due to excess calories (HCC) Procedures Eval & Treat Joaquin Johnson [address] [place] [address] [facility] [address] [facility] [address] [place] [address] Referral ID Status Reason Start Date Expiration Date V isits Requested Visits Authorized [id number] Pending Review 08/12/2022 08/12/2023 1 1 Reason Onset Date Comments Finnacial File 09/19/2022 Financial File 2 023 Surgery Scheduling 09/19/2022 Initial Sched uling - Orders Pended Reason Comments Nutrition Counseling Initial BNA Specialty Diagnoses / Procedures Referred By Contac t Referred To Contact Diagnoses Gastro-esophageal reflux disease without esophagitis Gastro-esophageal reflux disease without esophagitis [K21.9] Procedures RI EGD TRANSORAL BIOPSY SINGLE/MULTIPLE EGD WITH BIOPSY Charleen Zhu MD [address] [facility] [address] [place] [address] [facility] [address] [place] [address] Referral ID Status Reason Start Date Expiration Date Visits Re quested Visits Authorized [id number] 1 1 Reason Comments Head Congestion chest congestion, co ugh x 1 week, increased x 2 days Reason Comments Results Reason Onset Date Comments Appointment 11/04/2022 No Show Care Teams (unrecognized sec tion and content) Scrum Coach Relationship Specialty Start Date End Date Joaquin Johnson [address] [id number] PCP - General Family Medicine 09/16/22 Charleen Zhu MD [address] [place] [address] [address] [place] [address] Surgeon General Surgery 09/19/22 Scrum Coach Relationship Specialty Start Date End Date Elizabeth Joaquin Hill [address] [place] [address] PCP - General Family Medicine 09/16/22 Charleen Zhu MD [address] [place] [address] [address] [place], [place] [id number] Surgeon General Surgery 09/19/22 Scrum Coach Relationship Specialty Start Date End Date Elizabeth Joaquin Hill [address] [place] [address] PCP - General Family Medicine 09/16/22 Charleen Zhu MD [address] [place] [address] [address] [place] [address] Surgeon General Surgery 09/19/22 Scrum Coach Relationship Specialty Start Date End Date Joaquin Johnson [address] [place] [id number] PCP - General Family Medicine 09/16/22 Charleen Zhu MD [address] [place] [address] [address] [place], [place] [id number] Surgeon General Surgery 09/19/22 Scrum Coach Relationship Specialty Start Date End Date Joaquin Johnson DO [address] [place] [id number] PCP - General Family Medicine 10/25/22 Scrum Coach Relationship Specialty Start Date End Date Joaquin Johnson DO [address] [id number] PCP - General Family Medicine 10/25/22 Continuous Active and Recently Administ ered Medications (unrecognized section and content) Source Comments (unrecognize d section and content) In the event this informatio n is protected by the Federal Confidentiality of Alcohol and Drug Abuse Patient Records regulations: The Federal rules restrict any use of the information to criminally investigate or prosecute any alcohol or drug abuse patient.[facility] the event this information is protected by the Federal Confidentiality of Alcohol and Drug Abuse Patient Records regulations: The Federal rules restrict any use of the information to criminally investigate or prosecute any alcohol or drug abuse patient.[facility] FOR RECORDS PERTAINING TO PATIENTS WHO ARE OR HAVE BEEN ENROLLED IN A CHEMICAL DEPENDENCY/SUBSTANCEABUSE PROGRAM, SOME INFORMATION MAY BE OMITTED. This clinical summary was aggregated from multiple sources. Caution should be exercised in using it in the provision of clinical care. This summary normalizes information from multiple sources, and as a consequence, information in this document may materially change the coding, format and clinical context of patient data. In addition, data may be omitted in some cases. CLINICAL DECISIONS SHOULD BE BASED ON THE PRIMARY CLINICAL RECORDS. [facility] [employer] provides no warranty or guarantee of the accuracy or completeness of information in this document.
== END 2023-02-06 21:19 | disposition home or self-care (01) ==
LOC: ED 21:13
PROVIDERS: Emergency Provider Emergency Medicine; PCP Family Medicine; Referring Provider Emergency Medicine; Visit Provider Emergency Medicine
DX: O99.891 Other specified diseases and conditions complicating pregnancy (principal); O99.331 Smoking (tobacco) complicating pregnancy, first trimester; B34.9 Viral infection, unspecified; F17.200 Nicotine dependence, unspecified, uncomplicated; Z3A.00 Weeks of gestation of pregnancy not specified
CPT/HCPCS: 81025; 87428; 96361; 96374; 99284; J7030; A4216; J2405

== ENCOUNTER 2023-02-24 09:15 | Emergency (ER) | payer MEDICAID, SELFPAY ==
[2023-02-24 09:16] VITALS: BP 153/95; PULSE 103; RESP 16; TEMP 36; O2SAT 100; BMI 42.0
--- NOTE | 2023-02-24 09:26 | US_ITS ---
STUDY: FIRST TRIMESTER OBSTETRICAL ULTRASOUND REASON FOR EXAM: Female, 27 years old . Uterine bleeding. LMP: January 11, 2023. TECHNIQUE: Transvaginal TECHNICAL QUALITY: Adequate. PRIOR ULTRASOUND: None. FINDINGS: There is visualization of a single gestational sac in a normal intrauterine position. The mean sac diameter (MSD) measures 4.28 cm, indicating an estimated gestational age (EGA) of 9 weeks, 6 days. The gestational sac shape is within normal limits. There is a visualized yolk sac. The yolk sac measures 4.7 mm. The placenta is non-visualized. There is visualization of a live embryo. The crown-rump length (CRL) measures 2.38 cm, indicating an estimated gestational age (EGA) of 8 weeks, 6 days. There is demonstrated cardiac activity with a heart rate of 171 bpm. The estimated gestation age (EGA) by LMP is 8 weeks, 2 days. The estimated date of delivery (XIAO) by LMP is October 04, 2023. The estimated gestation age (EGA) by US is 9 weeks, 3 days. The estimated date of delivery (XIAO) by US is September 26, 2023. The uterus measures 13.5 cm x 9.2 cm x 7.2 cm. There is no demonstrated uterine fibroid. The cervix is closed. 2 small fluid collections are seen surrounding the gestational sac suggestive of possible subchorionic bleed. The right ovary measures 2.4 cm x 1.8 cm x 1.8 cm. There is no right ovarian cyst. There is no visualized right adnexal mass or complex lesion. The left ovary is not visualized. There is no fluid in the cul de sac. US/Transvaginal w/Preg US IMPRESSION: Live uterine gestation with a mean gestational age of 9 weeks and 3 days. Findings suggestive of 2 small subchorionic bleed. Electronically Signed: Luis Dunlap MD at 12:18 EST ,
--- NOTE | 2023-02-24 09:27 | ED.VIS.FEGU ---
HPI HPI - Female History of Present Illness Chief Complaint: Vag Bld, Preg Informant: patient Narrative Narrative: Patient presents secondary to vaginal bleeding during . Patient believes she is approximately 8 weeks . 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 She reports abdominal cramping the last several days and this morning had dark blood when she wiped. She states the bleeding is improved but she still has cramping. She is unsure of her blood type. [facility] Medical History (Updated 02/24/23 @ 12:[address] Eleanor Mcmahon MD) Anxiety Bipolar disorder Home Medications ondansetron 4 mg disintegrating tablet 4 mg PO Q8H PRN PRN Nausea #10 tabs 10/24/17 [Rx Last Taken Unknown] hydroxyzine HCl 50 mg tablet 50 mg PO Q6H 02/06/23 [History Last Taken Unknown] lamotrigine 200 mg tablet 200 mg PO DAILY 02/06/23 [History Last Taken Unknown] meloxicam 15 mg tablet 15 mg PO DAILY 02/06/23 [History Last Taken Unknown] ondansetron 4 mg disintegrating tablet 4 mg PO Q6H PRN nausea and vomiting #7 tabs 02/06/23 [Rx Last Taken Unknown] sumatriptan succinate 100 mg tablet 100 mg PO Q2H PRN migraine headache 02/06/23 [History Last Taken Unknown] topiramate 25 mg tablet 25 mg PO Q12H 02/06/23 [History Last Taken Unknown] Allergy/AdvReac Type Severity Reaction Status Date / Time No Known Allergies Allergy Verified 02/06/23 17:19 Social History Smoking Status: Current every day smoker tobacco type: cigarettes ROS ROS ED Constitutional Constitutional ED: Denies chills or fever(s) Eyes Eyes: Denies discharge from eye(s) ENT ENT ED: Denies discharge from eye(s), rhinorrhea or sore throat Cardiovascular Cardiovascular: Denies chest pain or palpitations Respiratory/Chest Respiratory/Chest: Denies cough or dyspnea Gastrointestinal Gastrointestinal: Reports abdominal pain; Denies nausea or vomiting Genitourinary Genitourinary ED: Denies difficulty urinating or dysuria Musculoskeletal Musculoskeletal: Denies back pain or extremity pain Integumentary Denies Abrasions or rash Neurologic Neurologic: Denies headache(s) or weakness Psychiatric Psychiatric: Denies anxiety or depression Allergic/Immunologic Allergic/Immunologic ED: Denies lip swelling or urticaria EXAM Physical Exam Const Vital Signs: 02/24/23 09:16 Temperature 96.8 F L Temperature Source Temporal Pulse Rate 103 H Respiratory Rate 16 Blood Pressure 153/95 H Blood Pressure Mean 114 Pulse Ox 100 Oxygen Delivery Method Room Air Positive well nourished and well developed General Appearance ED: well developed HEENT Reports moist mucous membranes Eyes EOMs intact bilaterally Chest Wall inspection of chest normal and palpation of chest normal Resp normal respiratory effort and clear to auscultation bilaterally Cardio regular rate and regular rhythm GI soft to palpation and non-tender Extremity normal to inspection Neuro oriented x3 and no sensory deficits noted Motor Exam: strength 5/5 throughout Psych mental status grossly normal Skin no rashes or lesions noted MDM MDM MDM Narrative Medical decision making narrative: I reviewed our computer records here but do not have documentation of her blood type. hCG quant and blood type will be sent. Pelvic ultrasound will be obtained to ensure intrauterine . Lab Data Labs: Laboratory Results - last 24 hr 02/24/23 09:45 HCG, Quant [id number] H Blood Type O POSITIVE Radiography Diagnostic Testing: Clinical Impression(s) from Imaging Studies Obstetrics Ultrasound 02/24/23 09:26 IMPRESSION: Live uterine gestation with a mean gestational age of 9 weeks and 3 days. Findings suggestive of 2 small subchorionic bleed. Electronically Signed: Luis Dunlap MD at 12:18 EST Reading Location ID and State: [address] [place] [address] , Service support , Treatment and Re-Evaluation Narrative: Blood type is confirmed to be O[place] [id number]. Pelvic ultrasound reveals live intrauterine gestation with mean gestational age of 9 weeks and 3 days. 2 small subchorionic bleeds appreciated. Test results discussed with the patient. I advised her to follow pelvic rest. I will also notify her [employer] M[employer]INE OPERATOR for follow-up. Return instructions given. Discharge Plan Triage Chief Complaint: Vag Bld, Preg ED Provider: Eleanor Mcmahon Dx/Rx/DC Orders Clinical Impression: Subchorionic bleed Instructions: Bleeding During Early Prescriptions: No Action ondansetron 4 MG tablet 4 mg PO Q8H PRN PRN (Reason: Nausea) Qty: 10 0RF ondansetron 4 mg tablet,disintegrating 4 mg PO Q6H PRN (Reason: nausea and vomiting) Qty: 7 0RF hydroxyzine HCl 50 mg tablet 50 mg PO Q6H Patient Comments: TAKE 1 TABLET BY MOUTH EVERY 6 HOURS NEEDED FOR ANXIETY meloxicam 15 mg tablet 15 mg PO DAILY Patient Comments: Take 1 tablet by mouth once daily lamotrigine 200 mg tablet 200 mg PO DAILY Patient Comments: TAKE 1 TABLET BY MOUTH DAILY sumatriptan succinate 100 mg tablet 100 mg PO Q2H PRN (Reason: migraine headache) Patient Comments: take 1 tablet at onset OF headache, can repeat in 2 (TWO) hours if needed topiramate 25 mg tablet 25 mg PO Q12H Patient Comments: Take 1 tablet by mouth twice daily Primary Care Provider: Hemant Johnson Referrals: Hemant Johnson DO [Primary Care Provider] - Rachel Alfredo [facility], [facility] [Non-Staff] - 5-7 Days Disposition Disposition: Home, Self Care
--- OUTSIDE RECORDS SUMMARY | 2023-02-24 10:52 | XMS RPT_ITS | CCD ---
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 Name Role Phone Joaquin Johnson Primary Care Provider Charleen Zhu MD Unavailable Joaquin Johnson DO Primary Care Provider SOURAV HURT Referring Unavailable JOAQUIN JOHNSON Primary Care Unavailable JOAQUIN JOHNSON Primary Care Unavailable CHARLEEN ZHU Attending Unavailable JOAQUIN JOHNSON Primary Care Unavailable CHARLEEN ZHU Attending Unavailable JOAQUIN JOHNSON Referring Unavailable JOAQUIN JOHNSON Primary Care Unavailable CHARLEEN ZHU Admitting Unavailable CHARLEEN ZHU Attending Unavailable JOAQUIN JOHNSON Primary Care Unavailable Medications [...] Drug Class(es) Dates Sig (Normalized) Sig (Original) [id number] 200 actuat albuterol 0.09 mg/actuat metered dose inhaler (2 sources) beta2-Adrenergic Agonist Start: 10-25-2022 take 2 puff(s) by inhalation every four hours as needed for wheezing albuterol HFA (PROVENTIL HFA, VENTOLIN HFA) 90 mcg/actuation inhaler Indications: Wheezing Inhale 2 Puffs as instructed every 4 hours as needed for wheezing/shortnes s of breath. 8 g 0 10/25/2022 Active Problems Active Problems Problem Classification Problem Date Documented Date Episodic/Chronic Abdominal pain (3 sources) Generalized abdominal pain; Translations: [Generalized abdominal pain] 09-27-2022 Episodic Esophageal disorders (7 sources) Gastroesophageal reflux disease; Translations: [Gastro-esophageal reflux disease without esophagitis] Onset: 10-15-2022 09-27-2022 Chronic Gastritis and duodenitis (6 sources) Chronic superficial gastritis; Translations: [Chronic superficial gastritis without bleeding] Onset: 10-12-2022 10-12-2022 Chronic Other lower respiratory disease (1 source) Cough; Translations: [Acute cough] 10-25-2022 Episodic Other lower respiratory disease (1 source) Wheezing; Translations: [Wheezing] 10-25-2022 Episodic Other non-traumatic joint disorders (4 sources) Pain in right knee; Translations: [Pain in joint, lower leg] 09-19-2022 Episodic Other nutritional; endocrine; and metabolic disorders (4 sources) Body mass index 40+ - severely obese; Translations: [Morbid (severe) obesity due to excess calories] 09-19-2022 Chronic Other nutritional; endocrine; and metabolic disorders (16 sources) Morbid obesity; Translations: [Morbid (severe) obesity [...] (BMI) 45.0-49.9, adult (HCC)] Onset: 09-19-2022 Chronic Unclassified (1 source) Acute cough; Translations: [Acute cough] Onset: 10-25-2022 Past or Other Problems Problem Classification Problem Date Documented Da te Episodic/Chronic Residual codes; unclassified (5 sources) Tobacco use and exposure - finding; Translations: [Tobacco use] Onset: 09-19-2022 09-19-2022 Episodic Residual codes; unclassified (1 source) Tobacco use; Translations: [Tobacco use] Onset: 09-19-2022 Episodic Spondylosis; intervertebral disc disorders; other back problems (11 sources) Backache; Translations: [Dorsalgia, unspecified] Onset: 09-19-2022 09-19-2022 Episodic Results Test Name Value Interpretation Reference Range Facil ity Vital Signs Date Time Vital Sign Value Performing Clinician Ender litmoni 10-25-2022 11:15-0400 Body temperature 98.1 [degF] Sourav Hurt MD Work Phone: [facility] 10-25-2022 11:15-0400 Body weight 140.16 kg Sourav Hurt MD Work Phone: [facility] 10-25-2022 11:15-0400 Diastolic blood pressure 84 mm[Hg] Sourav Hurt MD Work Phone: [facility] 10-25-2022 11:15-0400 Heart rate 106 /min Sourav Hurt MD Work Phone: [facility] 10-25-2022 11:15-0400 Respiratory rate 18 /min Sourav Hurt MD Work Phone: [facility] 10-25-2022 11:15-0400 SaO2% (BldA) [Mass fraction] 98 % Sourav Hurt MD Work Phone: [facility] 10-25-2022 11:15-0400 Systolic blood pressure 132 mm[Hg] Sourav Hurt MD Work Phone: [facility] 10-15-2022 12:03-0400 Diastolic blood pressure 75 mm[Hg] Charleen Zhu MD Work Phone: [facility] 10-15-2022 12:03-0400 Heart rate 69 /min Charleen Zhu MD Work Phone: [facility] 10-15-2022 12:03-0400 Respiratory rate 18 /min Charleen Zhu MD Work Phone: [facility] [employer] 10-15-2022 12:03-0400 SaO2% (BldA) [Mass fraction] 97 % Charleen Zhu MD Work Phone: [facility] [employer] 10-15-2022 12:03-0400 Systolic blood pressure 132 mm[Hg] Charleen Zhu MD Work Phone: [facility] [employer] 10-15-2022 11:45-0400 Body temperature 97.5 [degF] Charleen Zhu MD Work Phone: [facility] [employer] 10-15-2022 10:58-0400 Body height 177.8 cm Charleen Zhu MD Work Phone: [facility] [employer] 10-15-2022 10:58-0400 Body mass index (BMI) [Ratio] 45.05 kg/m2 Charleen Zhu MD Work Phone: [facility] [employer] 10-15-2022 10:58-0400 Body weight 142.43 kg Charleen Zhu MD Work Phone: [facility] [employer] 10-07-2022 11:03-0400 Body height 174.[address] Work Phone: [facility] [employer] 10-07-2022 11:03-0400 Body mass index (BMI) [Ratio] 46.77 kg/m2 Bing Baltazar RD Work Phone: [facility] [employer] 10-07-2022 11:03-0400 Body weight 142.[address] Work Phone: [facility] [employer] 09-19-2022 12:44-0400 Body height 174.6 cm Charleen Zhu MD Work Phone: [facility] [employer] 09-19-2022 12:44-0400 Body mass index (BMI) [Ratio] 46.95 kg/m2 Charleen Zhu MD Work Phone: [facility] [employer] 09-19-2022 12:44-0400 Body temperature 96.4 [degF] Charleen Zhu MD Work Phone: [facility] 09-19-2022 12:44-0400 Body weight 143.16 kg Charleen Zhu MD Work Phone: [facility] [employer] 09-19-2022 12:44-0400 Diastolic blood pressure 61 mm[Hg] Charleen Zhu MD Work Phone: [facility] 09-19-2022 12:44-0400 Heart rate 111 /min Charleen Zhu MD Work Phone: [facility] 09-19-2022 12:44-0400 Respiratory rate 18 /min Charleen Zuh MD Work Phone: [facility] [employer] 09-19-2022 12:44-0400 Systolic blood pressure 106 mm[Hg] Charleen Zhu MD Work Phone: [facility] Encounters Encounter Date Encounter Type Care Provider Facility Start: 11-04-2022 Telephone encounter Bing [address] Work Phone: [facility] Plan of Treatment Date Care Activity Detail Author Start: 2056 RSV Immunization aged 60 or older (1 - 1-dose 60+ series) RSV Immunization aged 60 or older (1 - 1-dose 60+ series) [facility] Start: 2046 Zoster Vaccines (1 of 2) Zoster Vaccines (1 of 2) [facility] Start: 11-15-2022 End: 11-15-2022 Patient encounter procedure 11/15/2022 1:00 PM EDT Appointment [facility] [address] [place] [address] [facility] [address] [place] [phone] [facility] Start: 11-04-2022 End: 11-04-2022 Clinical Support 11/04/2022 8:00 AM EDT Clinical Support [facility] [address] [place] [address] [facility] [address] [place] [address] [facility] Start: 10-17-2022 End: 10-17-2022 Patient encounter procedure 10/17/2022 9:00 AM EDT Office Visit [facility] [address] [place] [id number] Charleen Zhu MD [address] [place] [address] Avery Davis MD [address] [place] [address] [facility] Start: 10-15-2022 End: 10-15-2022 Admission to same day surgery center 10/15/2022 1:45 PM EDT - 10/15/2022 2:15 PM EDT Surgery [facility] [address] [place] [address] Charleen Zhu MD [address] [place] [address] EGD WITH BIOPSY [53325 (CPT )] [facility] [address] [facility] Immunizations Immunization Date Immunization Notes Care Provider Fa cility 12-16-2021 influenza virus vacc ine, unspecified formulation Sourav Hurt MD Work Phone: [facility] Payers Date Payer Category Payer Medicaid [id number] 2022 Medicaid [id number] Social History Date Type Detail Facility Start: 07-14-2022 End: 10-25-2022 Tobacco smoking status NHIS Smokes tobacco daily [facility] Start: 07-14-2022 History of tobacco use Cigarette Smo ker [facility] Start: 09-19-2022 End: 10-15-2022 Cigarettes smoked current (pack per day) - Reported 1 [facility] Start: 09-19-2022 End: 10-25-2022 Tobacco use and exposure Smokeless tobacco non-user [facility] Start: 09-19-2022 End: 10-15-2022 Alcohol intake Current drinker of alcohol (finding) [facility] Start: 09-19-2022 End: 10-15-2022 Tobacco use panel [facility] Start: 1995 Sex Assigned At Female [facility] Start: 09-18-2022 Gender identity Identifies as female gender (finding) [facility] Start: 09-18-2022 Sexual orientation Heterosexual (fin ding) [facility] Start: 09-09-2022 End: 10-07-2022 Exposure to SARS-CoV-2 (event) Not sure [facility] [employer] Within the last year , have you been afraid of your partner or ex-partner? No [facility] Start: 10-05-2022 End: 10-15-2022 Exposure to SARS-CoV-2 (event) Unable to assess [facility] National Score (1-10 0), lower number is lower risk Not on file [facility] Start: 1995 Sex Assigned At Not on file [facility] Clinical Notes 09-19-2022 to 02-06-2023 Telephone Encounter - Socrates Herman - 02/06/2023 1:30 PM ESTTelephone Encounter - Socrates Herman - 02/06/2023 1:30 PM ESTTelephone Encounter - Odalys Saavedra LPN - 09/30/2022 1:59 PM EDT Note Date & Type Note Facility 02-06-2023 Telephone encounter Note Called patient to see if she is still interested in program. Patient states that she is but now is not a good time, she is trying to get some things figured out. She will reach out when ready. [facility] 02-06-2023 Miscellaneous Notes Called patient to see if she is still interested in program. Patient states that she is but now is not a good time, she is trying to get some things figured out. She will reach out when ready. mailed Addended by: NIRAJ BENJAMIN on: 09/27/2022 10:47 AM Modules accepted: Orders Signed, thanks Addended by: ODALYS SAAVEDRA on: 09/27/2022 07:20 AM Modules accepted: Orders Orders pended, PRE OP CHECK LIST SCANNED TO MEDIA, EGD order sent to [facility]. Plan: I have recommended proceeding with the evaluation, workup and cyber security consultant preoperative consultations and testing for the primary procedure as outlined below: BARIATRIC AND METABOLIC SURGERY [facility] PATIENT SUMMARY Kitty Zhu 27 y.o. female with Body mass index is 46.95 kg/m . Planned Procedures: Laparoscopic Sleeve Gastrectomy DM[] HTN[] DOUG[] GERD[] HL[] OA[] TOB[x] Date of Surgery: YULI JOHNSON INITIAL PRE-OP TESTING ORDERS/ RESULTS Labwork [...] personally performed the evaluation and management of Kittylavell Whelan in the development of a treatment [...] MD as Surgeon (General Surgery) Initial New [facility] surgical patient Navigation & Financial Counseling Discussion [...] 1) Scheduled at new pt surgeon visit: Staff Training And Development Manager (RD) for a Nutrition Assessment (BNA) and [...] and after surgery. documented in this encounter [facility] 11-04-2022 Telephone encounter Note Pre-op_JZ 2 phone call attempts to [phone] to reach pt this am for BNA follow-up. Pt did not answer; unable to VM as VM box is full. 1 attempt to cell [phone] and busy signal. [facility] 11-04-2022 Miscellaneous Notes Pre-op_JZ 2 phone call attempts to [phone] to reach pt this am for BNA follow-up. Pt did not answer; unable to VM as VM box is full. 1 attempt to cell [phone] and busy signal. documented in this encounter [facility] 10-26-2022 Miscellaneous Notes Patient notified. Verbalized understanding. ----- Message from Arminda Arriaga APRN.CRIME ANALYST sent at 10/26/2022 9:54 AM EDT ----- Please advise patient the COVID test was negative. documented in this encounter [facility] 10-25-2022 Note HNO ID: [id number] Author: Piedad Zhong RT(R) Service: ? Author Type: Event Staff Member Type: Progress Notes Filed: 10/25/2022 11:59 AM [...] RT Shashi(R) October 25, 2022 11:48 AM [facility] 10-25-2022 Note HNO ID: [id number] Author: Sourav Hurt MD Service: ? Author [...] NAAT, UPPER RESPIRATORY, ROUTINE Sourav Hurt MD [facility] 10-25-2022 History of Present illness Narrative Patient [...] Sourav Hurt MD documented in this encounter [facility] 10-15-2022 Note Patient: Kitty blackmon Procedure Summary Date: 10/15/22 Room / Location: [address] ENDO SEC 4 / [facility] Anesthesia Start: 1134 Anesthesia Stop: 1150 Procedure: EGD WITH BIOPSY Diagnosis: Gastro-esophageal reflux [...] once all PACU criteria has been met. [facility] 10-15-2022 Note Patient: Kitty blackmon Procedure Summary Date: 10/15/22 Room / Location: [facility] [address] END[facility] SEC 4 / [facility] G[facility] Anesthesia Start: 1134 Anesthesia Stop: 1150 Procedure: EGD WITH BIOPSY Diagnosis: Gastro-esophageal reflux [...] opportunity for questions and acknowledgement of understanding. [facility] 09-05-2023 Note Endoscopy Center- [facility] Patient Name: Kitty Whelan Procedure Date: 10/15/2022 11:34 AM Gender: Female Date of : 1995 Age: 27 Admit Type: Outpatient Note Status: Finalized Endoscopist: Charleen Zhu MD, [id number] Procedure: Upper GI endoscopy Indications: Gastro-esophageal reflux [...] immediate complications. Procedure Code(s): --- Professional --- 84818, Esophagogastroduodenoscopy, flexible, transoral; with biopsy, single or multiple --- Technical --- 27743, Esophagogastroduodenoscopy, flexible, transoral; with biopsy, single or [...] due to excess calories CPT copyright 2021 [employer]. All rights reserved. The codes documented in this report are preliminary and upon outpatient coder review may be revised to meet current compliance requirements. Attending Participation: I personally performed the entire procedure. Charleen Zhu MD 10/15/2022 11:50:21 AM This report has been signed electronically. Number of Addenda: 0 Note Initiated On: 10/15/2022 11:34 AM [facility] 10-15-2022 Note Patient: Kitty blackmon Procedure Information Date/Time: 10/15/22 1145 Procedure: EGD WITH BIOPSY - 30 MINUTES Location: [address] ENDO SEC 4 / [facility] Gastroenterology [...] found for this or any previous visit. [facility] 10-15-2022 Note Formatting of this n ote might be different from the original. [facility] Patient Name: Kitty Whelan Procedure Date: 10/15/2022 11:34 AM Gender: Female Date of : 1995 Age: 27 Admit Type: Outpatient Note Status: Finalized Endoscopist: Charleen Zhu MD, [id number] Procedure: Upper GI endoscopy Indications: Gastro-esophageal reflux [...] immediate complications. Procedure Code(s): --- Professional --- 44269, Esophagogastroduodenoscopy, flexible, transoral; with biopsy, single or multiple --- Technical --- 15931, Esophagogastroduodenoscopy, flexible, transoral; with biopsy, single or [...] due to excess calories CPT copyright 2021 [employer]. All rights reserved. The codes documented in this report are preliminary and upon outpatient coder review may be revised to meet current compliance requirements. Attending Participation: I personally performed the entire procedure. Charleen Zhu MD 10/15/2022 11:50:21 AM This report has been signed electronically. Number of Addenda: 0 Note Initiated On: 10/15/2022 11:34 AM [facility] 10-15-2022 Note Formatting of this n ote might be different from the original. [facility] Patient Name: Kitty Whelan Procedure Date: 10/15/2022 11:34 AM Gender: Female Date of : 1995 Age: 27 Admit Type: Outpatient Note Status: Finalized Endoscopist: Charleen Zhu MD, [id number] Procedure: Upper GI endoscopy Indications: Gastro-esophageal reflux [...] immediate complications. Procedure Code(s): --- Professional --- 21477, Esophagogastroduodenoscopy, flexible, transoral; with biopsy, single or multiple --- Technical --- 58622, Esophagogastroduodenoscopy, flexible, transoral; with biopsy, single or [...] due to excess calories CPT copyright 2021 [employer]. All rights reserved. The codes documented in this report are preliminary and upon outpatient coder review may be revised to meet current compliance requirements. Attending Participation: I personally performed the entire procedure. Charleen Zhu MD 10/15/2022 11:50:21 AM This report has been signed electronically. Number of Addenda: 0 Note Initiated On: 10/15/2022 11:34 AM [facility] [employer] 10-15-2022 Miscellaneous Notes [facility] Patient Name: Kitty Whelan Procedure Date: 10/15/2022 11:34 AM Gender: Female Date of : 1995 Age: 27 Admit Type: Outpatient Note Status: Finalized Endoscopist: Charleen Zhu MD, [id number] Procedure: Upper GI endoscopy Indications: Gastro-esophageal reflux [...] - Await pathology results. Referring MD: Joaquin oJhnson Medicines: Monitored Anesthesia Care Procedure: Pre-Anesthesia Assessment: [...] immediate complications. Procedure Code(s): --- Professional --- 58408, Esophagogastroduodenoscopy, flexible, transoral; with biopsy, single or multiple --- Technical --- 04870, Esophagogastroduodenoscopy, flexible, transoral; with biopsy, single or [...] due to excess calories CPT copyright 2021 [employer]. All rights reserved. The codes documented in this report are preliminary and upon outpatient coder review may be revised to meet current compliance requirements. Attending Participation: I personally performed the entire procedure. Charleen Zhu MD 10/15/2022 11:50:21 AM This report has been signed electronically. Number of Addenda: 0 Note Initiated On: 10/15/2022 11:34 AM documented in this encounter [facility] 10-12-2022 Note [facility] - Surgery [facility] Phys[facility] Surgery PATIENT NAME: Kitty Whelan DATE [...] 6 hours as needed. 09/05/22 Historical Provider, MD lamoTRIgine (LaMICtal) 100 MG tablet TAKE 1 [...] length. Patient st (more content not included)... [facility] 10-12-2022 History and physical note Images from the original note were not included. [facility] - Surgery [facility] Physicians Surgery PATIENT NAME: Kitty Whelan DATE [...] understanding and willingness to proceed with plan. [facility] 10-12-2022 History and physical note Images from the original note were not included. [facility] - Surgery [facility] Physicians Surgery PATIENT NAME: Kitty Whelan DATE [...] 0.9 % infusion 50 mL/hr IntraVENous Continuous Niraj Benjamin, NAIN 50 mL/hr at 10/15/22 1103 50 mL/hr [...] proceed with plan. documented in this encounter [facility] 10-07-2022 History of Present illness Narrative [facility] BARIATRIC NUTRITION ASSESSMENT [...] they must have someone in their home 02/09 for the first week following surgery, or [...] Bing Baltazar RD documented in this encounter [facility] [employer] 09-30-2022 Telephone encounter Note mailed [facility] [employer] 09-27-2022 Note Addended by: NIRAJ BENJAMIN on: 09/27/2022 10:47 AM Modules accepted: Orders [facility] [employer] 09-27-2022 Note Addended by: NIRAJ BENJAMIN on: 09/27/2022 10:47 AM Modules accepted: Orders [facility] 09-27-2022 Note Addended by: NIRAJ BENJAMIN on: 09/27/2022 10:47 AM Modules accepted: Orders [facility] 09-27-2022 Telephone encounter Note Signed, thanks [facility] 09-27-2022 Miscellaneous Notes Addended by: NIRAJ BENJAMIN on: 09/27/2022 10:47 AM Modules accepted: Orders Signed, thanks Addended by: ODALYS SAAVEDRA on: 09/27/2022 07:20 AM Modules accepted: Orders Orders pended, PRE OP CHECK LIST SCANNED TO MEDIA, EGD order sent to [facility]. Plan: I have recommended proceeding with the evaluation, workup and cyber security consultant preoperative consultations and testing for the primary procedure as outlined below: BARIATRIC AND METABOLIC SURGERY [facility] PATIENT SUMMARY Kitty Zhu 27 y.o. female with Body mass index is 46.95 kg/m . Planned Procedures: Laparoscopic Sleeve Gastrectomy DM[] HTN[] DOUG[] GERD[] HL[] OA[] TOB[x] Date of Surgery: YULI JOHNSON INITIAL PRE-OP TESTING ORDERS/ RESULTS Labwork [...] MD as Surgeon (General Surgery) Initial New [facility] surgical patient Navigation & Financial Counseling Discussion [...] [] YES [] NO PRIMARY INSURANCE: Payor: [place] / Plan: [place] ODM / Product Type: Medicaid HMO [...] 1) Scheduled at new pt surgeon visit: Staff Training And Development Manager (RD) for a Nutrition Assessment (BNA) and [...] and after surgery. documented in this encounter [facility] 09-27-2022 Note Plan: I have recommended proceeding with the evaluation, workup and cyber security consultant preoperative consultations and testing for the primary procedure as outlined below: BARIATRIC AND METABOLIC SURGERY [facility] PATIENT SUMMARY Kitty Zhu [...] Charleen Zhu MD as Surgeon (General Surgery) [facility] 09-27-2022 Note Addended by: Trisha SAAVEDRA on: 09/27/2022 07:20 AM Modules accepted: Orders [facility] 09-27-2022 Note Addended by: Trisha SAAVEDRA on: 09/27/2022 07:20 AM Modules accepted: Orders [facility] 09-27-2022 Note Addended by: Trisha SAAVEDRA on: 09/27/2022 07:20 AM Modules accepted: Orders [facility] 09-27-2022 Telephone encounter Note Orders pended, PRE OP CHECK LIST SCANNED TO MEDIA, EGD order sent to [facility]. [facility] 09-27-2022 Telephone encounter Note Plan: I have recommended proceeding with the evaluation, workup and cyber security consultant preoperative consultations and testing for the primary procedure as outlined below: BARIATRIC AND METABOLIC SURGERY [facility] PATIENT SUMMARY Kitty Zhu [...] Charleen Zhu MD as Surgeon (General Surgery) [facility] 09-19-2022 Note Initial New [facility] surg ical patient Navigation & Financial Counseling Discussion Patient Communication: In office SURGEON: [x] JZ [] AD [] MP [] TB [] [...] [] YES [] NO PRIMARY INSURANCE: Pay[place]: [place] / Plan: [place] ODM / Product Type: Medicaid HMO [...] 1) Scheduled at new pt surgeon visit: Staff Training And Development Manager (RD) for a Nutrition Assessment (BNA) and [...] and lab/testing results before and after surgery. [facility] 09-19-2022 Telephone encounter Note Initial New [facility] surgical patient Navigation & Financial Counseling Discussion Patient Communication: In office SURGEON: [x] JRadha [] AD [] MP [] TB [] [...] 1) Scheduled at new pt surgeon visit: Staff Training And Development Manager (RD) for a Nutrition Assessment (BNA) and [...] and lab/testing results before and after surgery. [facility] 09-19-2022 History of Present illness Narrative Images from the original note were not included. [facility] SURGICAL PROGRAM INITIAL [...] I advised them to discuss with their physician/hearing instrument specialist regarding contraception to prevent during this period of time after surgery. In addition, all patients were counseled on compliance with prescribed vitamin supplementation, office visit follow-up and compliance with program standards. Plan: I have recommended proceeding with the evaluation, workup and cyber security consultant preoperative consultations and testing for the primary procedure as outlined below: BARIATRIC AND METABOLIC SURGERY [facility] PATIENT SUMMARY Kittynae Zhu 27 y.o. female with Body mass [...] Charleen Zhu MD as Surgeon (General Surgery) [facility] WEIGHT LOSS MANAGEMENT PROGRAM Rooming Note [...] Eleanor Alvarado MA documented in this encounter [facility] [employer] documented in this encounter [facility] Embibealuation note* Diagnosis Pre-operative laboratory examination- Primary Pre-procedural laboratory examination Morbid obesity with BMI of 45.0-49.9, adult (HCC) Tobacco use Chronic pain of both knees Pre-operative clearance Unspecified pre-operative examination Gastroesophageal reflux disease, unspecified whether esophagitis present Generalized abdominal pain Abdominal pain, generalized Gastro-esophageal reflux disease without esophagitis documented in this encounter [facility] [employer] note* Diagnosis Morbid obesity, unspecified obesity type (HCC)- Primary Gastro-esophageal reflux disease without esophagitis documented in this encounter [facility] [employer] note* Diagnosis Gastro-esophageal reflux disease without esophagitis Morbid obesity, unspecified obesity type (HCC) Chronic superficial gastritis without bleeding documented in this encounter [facility] [employer] note* Diagnosis Morbid obesity, unspecified obesity type (HCC)- Primary [facility] Diagnosis Acute cough- Primary Wheezing [facility] Diagnosis Pre-operative laboratory examination- Primary Pre-procedural laboratory examination Morbid obesity with BMI of 45.0-49.9, adult (HCC) Tobacco use Chronic pain of both knees Pre-operative clearance Unspecified pre-operative examination Gastroesophageal reflux disease, unspecified whether esophagitis present Generalized abdominal pain Abdominal pain, generalized documented in this encounter [facility] Discharge instructions* Attachments The following attachments cannot be sent through Care Everywhere. * Upper GI Endoscopy Discharge Instructions (Romansh) [facility] (n[facility] Consultation (Routine) - Pending Review Specialty Diagnoses / Procedures Referred By Khushi che Referred To Contact Pulmonary Disease / Pulmonology Diagnoses Morbid obesity with BMI of 45.0-49.9, adult (HCC) Tobacco use Pre-operative clearance Procedures ND OFFICE/OUTPATIENT NEW HIGH MDM 60-74 MINUTES Niraj Benjamin PA [address] [place] [address] [facility] [address] [place] [address] Referral ID Status Reason Start Date Expiration Date Visits Requested Visits Authorized [id number] Pending Review Specialty Services Required 09/27/2022 09/27/2023 1 1 * Consultation (Elective) - Pending Review Specialty Diagnoses / Procedures Referred By Khushi che Referred To Contact Cardiology Diagnoses Morbid obesity with BMI of 45.0-49.9, adult (HCC) Tobacco use Pre-operative clearance Procedures ND OFFICE/OUTPATIENT NEW HIGH MDM 60-74 MINUTES Niraj Benjamin PA [address] [place] [address] [facility] [address] [place] [address] Referral ID Status Reason Start Date Expiration Date Visits Requested Visits Authorized [id number] Pending Review Specialty Services Required 09/27/2022 09/27/2023 1 1 [employer] [facility] Summary Purpose Family History No Family History Records FoundNo Family History Records FoundNo Family History Records Found Advance Directives No Advanced Directives Records FoundLatest Code Status on File Code Status Date Activated Date Inactivated Comments Full Code 10/15/2022 10:59 AM 10/15/2022 2:21 PM Latest Code Status on File Code Status Date Activated Date Inactivated Comments Full Code 10/15/2022 10:59 AM 10/15/2022 2:21 PM Additional Source Comments INFORMATION SOURCE (unrecogn ized section and content) DATE CREATED AUTHOR AUTHOR'S ORGANIZ ATION 10/27/2022 [facility] DATE CREATED AUTHOR AUTHOR'S ORGANIZ ATION 02/08/2023 [facility] [employer] Reason for Visit (unrecogniz ed section and content) Specialty Diagnoses / Procedures Referred By Khushi che Referred To Contact Bariatrics Diagnoses Morbid (severe) obesity due to excess calories (HCC) Procedures Eval & Treat Joaquin Johnson [address] [place] [address] [facility] [address] [place] [address] Referral ID Status Reason Start Date Expiration Date V isits Requested Visits Authorized [id number] Pending Review 08/12/2022 08/12/2023 1 1 Reason Onset Date Comments Finnacial File 09/19/2022 Financial File 2 023 Surgery Scheduling 09/19/2022 Initial Sched uling - Orders Pended Reason Comments Nutrition Counseling Initial BNA Specialty Diagnoses / Procedures Referred By Khushi che Referred To Contact Diagnoses Gastro-esophageal reflux disease without esophagitis Gastro-esophageal reflux disease without esophagitis [K21.9] Procedures ND EGD TRANSORAL BIOPSY SINGLE/MULTIPLE EGD WITH BIOPSY Charleen Zhu MD [address] [facility] [address] [place] [address] [facility] [address] [place] [address] Referral ID Status Reason Start Date Expiration Date Visits Re quested Visits Authorized [id number] 1 1 Reason Comments Head Congestion chest congestion, co ugh x 1 week, increased x 2 days Reason Comments Results Reason Onset Date Comments Appointment 11/04/2022 No Show Care Teams (unrecognized sec tion and content) 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 Start Date End Date Joaquin Johnson [address] [place] [address] PCP - General Family Medicine 09/16/22 Charleen hZu MD [address] [place] [address] Surgeon General Surgery 09/19/22 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 Start Date End Date Joaquin Johnson [address] [place] [address] PCP - General Family Medicine 09/16/22 Charleen Zhu MD [address] [place] [address] [address] [place] [address] Surgeon General Surgery 09/19/22 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 Start Date End Date Joaquin Johnson [address] [place] [address] PCP - General Family Medicine 09/16/22 Charleen Zhu MD [address] [place] [address] Surgeon General Surgery 09/19/22 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 Start Date End Date Joaquin Johnson [address] [place] [address] PCP - General Family Medicine 09/16/22 Charleen Zhu MD [address] [place] [address] [address] [place] [address] Surgeon General Surgery 09/19/22 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 Start Date End Date Joaquin Johnson DO [address] [place] [address] PCP - General Family Medicine 10/25/22 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 the event this information is protected by the Federal Confidentiality of Alcohol and Drug Abuse Patient Records regulations: The Federal rules restrict any use of the information to criminally investigate or prosecute any alcohol or drug abuse patient.[facility] FOR RECORDS PERTAINING TO PATIENTS WHO [...] BE BASED ON THE PRIMARY CLINICAL RECORDS. [facility], [facility]. provides no warranty or guarantee of the accuracy or completeness of information in this document.
[2023-02-24 11:04] LABS: hCG Titer Quant., Serum 67476 mIU/mL (1-3)
== END 2023-02-24 12:41 | disposition home or self-care (01) ==
PROVIDERS: Emergency Provider Emergency Medicine; PCP Family Medicine; Visit Provider Emergency Medicine
DX: O20.8 Other hemorrhage in early pregnancy (principal); F31.9 Bipolar disorder, unspecified; O99.331 Smoking (tobacco) complicating pregnancy, first trimester; F17.210 Nicotine dependence, cigarettes, uncomplicated; O99.341 Other mental disorders complicating pregnancy, first trimester; F41.9 Anxiety disorder, unspecified; Z79.899 Other long term (current) drug therapy; Z3A.09 9 weeks gestation of pregnancy
CPT/HCPCS: 76817; 84702; 86900; 86901; 99283

== ENCOUNTER 2023-07-10 15:53 | Outpatient (CLI) | payer MEDICAID, SELFPAY ==
[2023-07-10 16:10] VITALS: BP 134/76; PULSE 96; RESP 16; TEMP 36.6
[2023-07-10 16:23] VITALS: BMI 41.4
[2023-07-10 17:29] LABS: ALB/GLOB Ratio 0.6 RATIO (0.9-2.4); AST(SGOT) 15 U/L (15-37); Alanine Aminotransfer ALT/SGPT 12 U/L (13-56); Albumin, Serum 2.7 g/dL (3.2-5.0); Alkaline Phosphatase 69 U/L (45-117); Anion Gap 8 (5-15); BUN 5 mg/dL (7-18); Calcium,Total 8.9 mg/dL (8.5-10.1); Chloride 105 mmol/L (98-107); Creatinine, Serum 0.56 mg/dL (0.55-1.02); EST Glomerular Filtration Rate 139 mL/min (>60); Est Glom Filt Rate - Afr Amer 168 mL/min (>60); Estimated Creatinine Clearance 229.67 ml/min; Globulin 4.3 g/dL (2.2-4.2); Glucose 84 mg/dL (74-106); Potassium 3.4 mmol/L (3.5-5.1); Sodium Level 134 mmol/L (136-145)
--- NOTE | 2023-07-10 17:44 | OB.TRI.HP_ITS ---
HPI - General General Date of Admission: 07/10/23 Date of Service: 07/10/23 Chief Complaint: N/V HPI Narrative BAUDILIO AGUILAR, is a 28 F who presents from office with N/V and inability to tolerate PO for 24 hours other than small sips of water and small snacks. [facility] Medical History (Updated 07/10/23 @ 17:[address] Zeenat Jin, DO) Anxiety Bipolar disorder Home Medications ?Medication ?Instructions ?Recorded ?Last Taken ?Type hydroxyzine HCl 50 mg tablet 50 mg PO BID anxiety 02/06/23 07/10/23 History acetaminophen 325 mg capsule 650 mg PO Q6H 07/10/23 07/10/23 History (Tylenol) magnesium oxide-magnesium amino 1 cap PO DAILY nausea 07/10/23 07/10/23 History acid chelate 300 mg capsule (Magnesium (oxide/AA chelate)) ondansetron 4 mg disintegrating 8 mg PO Q6H PRN nausea and vomiting 07/10/23 07/10/23 History tablet pantoprazole 40 mg tablet,delayed 40 mg PO DAILY 07/10/23 Unknown History release (Protonix) vit no.95-ferrous 1 tab PO DAILY 07/10/23 Unknown History fumarate 28 mg-folic acid 800 mcg tablet () promethazine 12.5 mg tablet 12.5 mg PO .QD nausea 07/10/23 07/09/23 History sertraline 50 mg tablet (Zoloft) 50 mg PO DAILY 07/10/23 Unknown History Allergy/AdvReac Type Severity Reaction Status Date / Time No Known Allergies Allergy Verified 07/10/23 16:24 Social History Smoking Status: Current every day smoker tobacco type: cigarettes NST FHR Rate Baby A Baseline: 150 Variability:: Moderate Accelerations:: None Decelerations:: None NST Reactive:: Appropriate for gestational age Assessment & Plan (1) 28 weeks gestation of : PLAN: Discussed high potassium diet, which she agrees to. Discussed N/V could be secondary to marijuana use and encouraged cessation. Discussed patient who MFM given medications that she has tried, and MFM agrees that a course of steroids is reasonable. Rx sent in office. Discussed with patient to notify office if no improvement after the weekend. (2) Nausea & vomiting:
== END 2023-07-10 17:45 | disposition home or self-care (01) ==
LOC: WPOUT 15:58 → WP 15:59
PROVIDERS: PCP Family Medicine; Referring Provider Obstetrics & Gynecology; Visit Provider Obstetrics & Gynecology
DX: O21.9 Vomiting of pregnancy, unspecified (principal); Z3A.28 28 weeks gestation of pregnancy
CPT/HCPCS: 36415; 59025; 59050; 80053; 99221; G0378

== ENCOUNTER 2023-09-07 17:27 | Inpatient (IN) | payer MEDICAID, SELFPAY ==
[2023-09-07 17:46] VITALS: BMI 43.2
[2023-09-07] MEDS: LACTATED RINGERS 500 ML 999 ML IV (18:15)
[2023-09-07 18:16] VITALS: BP 141/74; PULSE 109; RESP 18; TEMP 36.9; O2SAT 97
[2023-09-07] MEDS: Lactated Ringers 1,000 ML 50 ML IV (18:19)
[2023-09-07 18:29] LABS: Absolute Lymphocyte Count 1.65 X10^3/uL (0.83-4.51); Basophil# 0.03 X10^3/uL; Basophil% 0.2 % (0-1); Eosinophil# 0.22 X10^3/uL; Eosinophils% 1.3 % (0-5); Hemoglobin 9.6 g/dL (12.0-15.0); Lymphocyte # 1.65 X10^3/ul (0.83-4.51); Mean Corpuscular Hgb 25.4 pg (27.0-32.0); Mean Corpuscular Volume 79.4 fL (81-99); Mean Platelet Vol. 8.8 fl (6.2-12.0); Monocyte# 1.44 X10^3/uL; Monocyte% 8.7 % (0-10); NRBC Flagged by Analyzer 0 % (0-5); Neutrophil # 13.04 X10^3/uL (2.7-7.7); Neutrophil % 78.8 % (47-70); Platelet Count 381 K/mm3 (150-450); RBC Distribution Width CV 13.9 % (11.6-14.6); RBC Distribution Width SD 40.2 fl (35.1-43.9); Red Blood Count 3.78 M/mm3 (4.2-5.4); White Blood Count 16.6 K/mm3 (4.4-11.0)
[2023-09-07 19:01] LABS: Amphetamine Urine VISTA NEGATIVE (<1000 ng/mL); Barbiturate Urine VISTA NEGATIVE (< 200 ng/mL); Benzodiazepine Urine VISTA NEGATIVE (< 200 ng/mL); Cocaine Urine VISTA NEGATIVE (< 300 ng/mL); Ecstacy Urine VISTA NEGATIVE (< 500 ng/mL); Methadone Urine VISTA NEGATIVE (< 300 ng/mL); PCP Urine VISTA NEGATIVE (< 25 ng/mL); THC Urine VISTA POSITIVE (< 50 ng/mL); Vista UDS pH Range 6
[2023-09-07 19:17] LABS: Syphilis Antibodies Non-reactive
[2023-09-07 19:25] VITALS: BP 137/87; PULSE 102
--- NOTE | 2023-09-07 19:54 | PCM.HP.OB ---
HPI - General General Date of Admission: 09/07/23 Date of Service: 09/07/23 Chief Complaint: induction of labor HPI Narrative BAUDILIO AGUILAR, is a 28 female 2 para 1 with EDC 09/27/2023 who presents for induction of labor due to maternal obesity and gestational hypertension. She denies any vaginal bleeding or leaking of fluid. Good movement. She denies any headache or visual changes. Past medical history is significant for marijuana use during , tobacco use during , schizoaffective disorder, heartburn, anemia, maternal obesity with BMI of greater than 40 She has a history of 1 previous vaginal delivery Maternal Data Information Final XIAO: 09/27/23 Final XIAO Source: US <20 weeks Gestational age: 37 02/16 [facility] Medical History (Updated 09/07/23 @ 19:[address] Latricia Beal MD) Psychiatric disorder Gestational HTN Pre-eclampsia Anxiety Bipolar disorder Home Medications ?Medication ?Instructions ?Recorded ?Last Taken ?Type hydroxyzine HCl 50 mg tablet 50 mg PO BID anxiety 02/06/23 09/07/23 History acetaminophen 325 mg capsule 650 mg PO Q6H pain 07/10/23 09/07/23 History (Tylenol) magnesium oxide-magnesium amino 1 cap PO DAILY nausea 07/10/23 09/07/23 History acid chelate 300 mg capsule (Magnesium (oxide/AA chelate)) ondansetron 4 mg disintegrating 8 mg PO Q6H PRN nausea and vomiting 07/10/23 09/07/23 History tablet pantoprazole 40 mg tablet,delayed 40 mg PO DAILY preg 07/10/23 09/07/23 History release (Protonix) vit no.95-ferrous 1 tab PO DAILY preg 07/10/23 09/07/23 History fumarate 28 mg-folic acid 800 mcg tablet () promethazine 12.5 mg tablet 12.5 mg PO .QD nausea 07/10/23 09/06/23 History Allergy/AdvReac Type Severity Reaction Status Date / Time No Known Allergies Allergy Verified 09/07/23 17:47 Social History Smoking Status: Current every day smoker tobacco type: cigarettes History Elective abortions Hx Para 1 Spontaneous abortions Hx # Term Pregnancies Ectopic pregnancies Hx # Pregnancies Multiple births # of living children ROS Constitutional Constitutional: Denies fatigue, fever(s) or malaise Eyes Eyes: Denies change in vision ENT HEENT: Denies dizziness or headache(s) Cardiovascular Cardiovascular: Denies chest pain, dyspnea or lightheadedness Respiratory/Chest Respiratory/Chest: Denies cough or dyspnea Gastrointestinal Gastrointestinal: Denies change in bowel habits Genitourinary Genitourinary: Denies burning urination or genital lesions Integumentary Integumentary: Denies rash Neurologic Neurologic: Denies confusion, dizziness, headache(s), numbness or weakness Vital Signs Vital Signs Vital Signs: 09/07/23 18:16 09/07/23 18:16 09/07/23 18:16 Temperature Temperature Source Pulse Rate 109 H Respiratory Rate Blood Pressure 141/74 H BP Systolic 141 BP Diastolic 74 Pulse Ox 97 09/07/23 18:16 09/07/23 18:16 09/07/23 18:16 Temperature 98.4 F Temperature Source Temporal Pulse Rate Respiratory Rate 18 Blood Pressure BP Systolic BP Diastolic Pulse Ox 09/07/23 18:16 09/07/23 19:25 09/07/23 19:25 Temperature 98.4 F Temperature Source Pulse Rate 102 H Respiratory Rate Blood Pressure 137/87 H BP Systolic 137 BP Diastolic 87 Pulse Ox Weight Weight: 140.8 kg Body Mass Index (BMI) 43.2 Physical Exam Const alert and no apparent distress General Appearance: cooperative HEENT normocephalic Resp normal respiratory effort Cardio regular rate GI soft to palpation GI Narrative: gravid, nontender, appropriate for gestational age Extremity no calf tenderness General Extremity: edema Skin no wounds Rashes: No rashes noted Psych activity/motor behavior normal Labs Labs Labs: Blood Type O POSITIVE Antibody Screen NEGATIVE Hct 30.0 % (37-47) L Hgb 9.6 g/dL (12.0-15.0) L Obstetrics Ultrasound Syphilis Total Ab Non-reactive Chlamydia DNA (TIFFANY) Negative (Negative) N.gonorrhoeae DNA (TIFFANY) Positive (Negative) H Group B Strep DNA Negative (Negative-) Assessment & Plan (1) Supervision of other high risk pregnancies, third trimester: (2) 37 weeks gestation of : (3) Maternal obesity syndrome in third trimester: (4) Tobacco use affecting in third trimester, antepartum: (5) Marijuana use during : PLAN: Plan Response and alternatives to induction of labor discussed with patient, her questions were answered to her satisfaction she desires to proceed. Being induced for gestational hypertension maternal obesity. Monitor for signs and symptoms of severe preeclampsia. Will undergo Cytotec and likely So and Pitocin induction of labor. May have routine pain control measures as needed. Estimated weight is less than 4500 g and pelvis clinically adequate to expect vaginal delivery. Procedure note: So placed over stylette in usual sterile fashion and inflated to 30 cc. Placement over internal cervical os confirmed. Fetus and patient tolerated the procedure well. Will do acoustic stim and reposition patient as she was laying flat on her back. When moderate variability start Cytotec.
[2023-09-07] MEDS: miSOPROStol 25 MCG TABLET PO (20:10)
[2023-09-07] MEDS: 0.9% Normal Saline Single 100 ML IV.SOLN. INTRA-UTER (20:11)
[2023-09-07 23:32] VITALS: RESP 16; TEMP 35.9
[2023-09-07 23:33] VITALS: BP 142/76; PULSE 85
[2023-09-08] VITALS (104 sets, daily range): BP systolic 117–181; BP diastolic 56–101; PULSE 76–110; RESP 16–18; TEMP 36.1–37.1; O2SAT 81–100
[2023-09-08] MEDS: Oxytocin 15 Units/NS 250ml 15 UNITS/250 ML IV.SOLN 2 UNITS IV (00:15)
[2023-09-08] MEDS: Lactated Ringers 1,000 ML 999 ML IV (00:59)
[2023-09-08] MEDS: fentaNYL-bupivacaine (epidural) 100 ML BAG EPIDURAL ×4 (02:01→15:11)
[2023-09-08] MEDS: Lactated Ringers 1,000 ML 200 ML IV ×3 (06:55→17:03)
--- NOTE | 2023-09-08 08:30 | PCM.PN.OB ---
Subjective Subjective Resting comfortably in bed with epidural, coping well. Objective Data Objective Data Vital Signs: Vital Signs Temp Pulse Resp BP Pulse Ox 97.3 F L 90 16 140/76 H 98 09/08/23 07:35 09/08/23 07:33 09/08/23 04:38 09/08/23 07:33 09/08/23 05:50 Weight: 310 lb 6.574 oz Body Mass Index (BMI) 43.2 Intake & Output: Intake and Output for Last 24 Hours 09/06/23 09/07/23 09/08/23 23:59 23:59 23:59 Intake Total 2519.60 / 2519.60 Output Total 400 / 400 250 / 250 Balance -400 / -400 2269.60 / 2269.60 Lab / Micro Data 09/07/23 17:55 Labs: Laboratory Results - last 24 hr 09/07/23 17:55: WBC 16.6 H, RBC 3.78 L, Hgb 9.6 L, Hct 30.0 L, MCV 79.4 L, MCH 25.4 L, MCHC 32.0, RDW Std Deviation 40.2, RDW Coeff of Bharath 13.9, Plt Count 381, MPV 8.8, Immature Gran % (Auto) 1.000 H, Neut % (Auto) 78.8 H, Lymph % (Auto) 10.0 L, Creek % (Auto) 8.7, Eos % (Auto) 1.3, Baso % (Auto) 0.2, Absolute Neuts (auto) 13.0 H, Absolute Lymphs (auto) 1.65, Nucleated RBC % 0, Syphilis Total Ab Non-reactive, Blood Type O POSITIVE, Antibody Screen NEGATIVE 09/07/23 18:45: Urine Opiates Screen NEGATIVE, Urine Methadone Screen NEGATIVE, Ur Barbiturates Screen NEGATIVE, Ur Phencyclidine Scrn NEGATIVE, Ur Amphetamines Screen NEGATIVE, MDMA (Ecstasy) Screen NEGATIVE, U Benzodiazepines Scrn NEGATIVE, Urine Cocaine Screen NEGATIVE, U Cannabinoids Screen POSITIVE H, Ur Drug Screen Comment Physical Exam Narrative: 4cm/50%/-2 NST FHR Rate Baby A Baseline: 155 Variability:: Moderate Accelerations:: 15 x 15 Decelerations:: Variable FHR Category:: Category II Uterine Activity:: every 2-4 minutes Assessment & Plan (1) Marijuana use during : (2) Tobacco use affecting in third trimester, antepartum: (3) Maternal obesity syndrome in third trimester: (4) 37 weeks gestation of : (5) Supervision of other high risk pregnancies, third trimester: PLAN: Plan 1) Continue with active management, pitocin. 2) Positional changes 3) Epidural for pain management 4) collaborative physician and updated on patient status, above assessment and plan.
[2023-09-08] MEDS: Ondansetron 4 MG/2 ML Vial IV ×3 (09:25→19:30)
[2023-09-08] MEDS: Acetaminophen 500 MG Tablet PO (13:57)
[2023-09-08] MEDS: Oxytocin 15 Units/NS 250ml 15 UNITS/250 ML IV.SOLN 83 UNITS IV (19:10)
--- NOTE | 2023-09-08 19:13 | EX.PCM.OBRPT ---
Maternal Data Information Final XIAO: 09/27/23 Gestational age: 37 2/7 Vaginal Delivery Maternal Presentation Maternal Presentation: Medically Indicated Induction Type of Induction: Pitocin, So Bulb and Cytotec Operative Information Date of Procedure: 09/08/23 Pre-Operative Diagnosis: labor Post-Operative Diagnosis: same Surgery / Procedure Performed: Spontaneous Vaginal Delivery Type of Anesthesia: Epidural Special Medications: none Drain: So to straight drain Estimated Blood Loss: 200 Time of Delivery: 18:39 Findings Description of Procedure: A vigorous male infant was delivered YAJAIRA over an intact perineum. A loose nuchal cord ?1 was easily reduced. The remainder the was delivered with maternal pushing and gentle traction only in less than 15 seconds. The Pitocin infusion was initiated for active management of the third stage. The cord was clamped and cut after 1 minute. The was attended to by the waiting nursing staff. The placenta was delivered spontaneously and intact. The cervix and vagina were intact. There were no lacerations. Sponge and needle counts were correct. A vaginal sweep was completed by me. Presentation: YAJAIRA Amniotic Membrane Rupture Type: Spontaneous Amniotic Fluid Description: Clear Placental Delivery Description: Spontaneous Placenta Disposition: [facility] Cord Vessel Description: 3 Vessels Cord Entanglement: Around neck x 1, loose Nuchal Cord Compression: Without compression A Gender: Male (Hemanth) (1 minute): 8 (5 minute): 9 Delayed Cord Clamping: Yes Post Vaginal Delivery Medications Given After Delivery: IV Pitocin Episiotomy Description: None Laceration: None Complication Complications: None Admit VTE Documentation VTE Present on Admission: No VTE Pharm Prophylaxis Ordered: No Reason Prophylaxis Not Ordered: Procedure Not Indicated
[2023-09-08] MEDS: hydrALAZINE 20 MG/ML Vial 10 MG IV (19:33)
[2023-09-08] MEDS: 0.9% Saline Lock 10 ML Syringe IV (19:36)
[2023-09-08] MEDS: Ibuprofen 600 MG Tablet PO (20:07)
[2023-09-08] MEDS: Acetaminophen 500 MG Tablet 1000 MG PO (20:07)
[2023-09-08] MEDS: Labetalol (Prefilled) 20 MG/4 ML IV (21:41)
[2023-09-08] MEDS: Magnesium Sulfate 4gm/100mL 4 GM/100 ML IV.SOLN. IV (21:47)
[2023-09-08] MEDS: Magnesium Sulfate 20 GM/500 ML BAG IV (22:10)
[2023-09-08] MEDS: Lactated Ringers 1,000 ML 15 ML IV (22:11)
[2023-09-08] MEDS: Labetalol 200 MG Tablet PO (22:12)
[2023-09-08] MEDS: oxyCODONE 5 MG Tablet PO (22:34)
[2023-09-08] MEDS: hydrOXYzine PAM 25 MG Capsule 50 MG PO (23:21)
[2023-09-09] VITALS (22 sets, daily range): BP systolic 105–155; BP diastolic 52–97; PULSE 75–91; RESP 14–17; TEMP 36–36.8; O2SAT 96–100
--- NOTE | 2023-09-09 01:03 | NURSING ---
From 1944 to 2229 [facility] was down and this RN did bedside medication verifications with Avtar RN at bedside.
[2023-09-09] MEDS: Magnesium Sulfate 20 GM/500 ML BAG IV ×2 (07:24→16:19)
--- NOTE | 2023-09-09 09:01 | PCM.PROGNOTE ---
Subjective Subjective patient seen at bedside, doing well. Patient reports good pain control. lochia mild. Reports mild headache but nothing outside her normal migraine. denies visual changes or RUQ pain. Objective Data Objective Data Vital Signs: Vital Signs Temp Pulse Resp BP Pulse Ox O2 Del Method 97.8 F 85 16 149/97 H 98 Room Air 09/09/23 08:40 09/09/23 08:40 09/09/23 08:40 09/09/23 08:40 09/09/23 08:40 09/09/23 08:40 Oxygen Delivery Method Room Air Weight: 140.8 kg Body Mass Index (BMI) 43.2 Intake & Output: Intake and Output for Last 24 Hours 09/07/23 09/08/23 09/09/23 23:59 23:59 23:59 Intake Total 5606.66 / 5606.66 1361.67 / 1361.67 Output Total 400 / 400 2650 / 2650 1000 / 1000 Balance -400 / -400 2956.66 / 2956.66 361.67 / 361.67 Lab / Micro Data 09/07/23 17:55 Physical Exam Narrative NO RUQ pain on palpation. Fundus is firm. Const alert and oriented x3 General Appearance: cooperative HEENT normocephalic Neck General: normal visual inspection GI soft to palpation and non-distended GI Narrative: Fundus firm Extremity normal to inspection and no calf tenderness Skin no rashes or lesions noted Neuro oriented x3 and CN's II-XII intact bilaterally Psych mental status grossly normal Assessment & Plan Assessment/Plan (1) Pre-eclampsia, severe, delivered: (2) Vaginal delivery: PLAN: Plan PPD#1 , preeclampsia with severe features on magnesium Routine care pain mgmt ambulation continue magnesium x 24hr continue labetalol 200mg BID monitor BPs
[2023-09-09] MEDS: Labetalol 200 MG Tablet PO ×2 (09:59→21:32)
[2023-09-09] MEDS: hydrOXYzine PAM 25 MG Capsule 50 MG PO ×2 (10:44→22:02)
[2023-09-09] MEDS: Senna/Docusate Sodium 1 Tablet PO (11:18)
[2023-09-09] MEDS: Ibuprofen 600 MG Tablet PO ×2 (11:18→21:52)
--- NOTE | 2023-09-09 13:17 | CASEMGMT ---
Social Work Assessment Labor and Delivery Unit Patient Address: [facility] [place] [place] [address] Phone number: [phone] Date of Referral: 09/07/23 Time of Referral:? [id number] Referred By: Dr. Beal Date of Intervention: ?09/09/23? Time of Intervention:? 1240 Reason for Referral:? THC Jerardo completed chart review and acknowledges social work consult due to maternal use of THC during . Sw presented to bedside and introduced self to mother of baby (SAUL Tang). Also present was her mother and support person, Alexandrea and BRYAN's 11 year old son. BRYAN stated that it was okay to complete assessment with visitors present. History obtained from: medical records, MOB Household composition: BRYAN is currently residing with her mom. Also residing with BRYAN is her 11 year old son Sonu and baby when ready for discharge. Patient's parent/guardian status:? ?MOB states that father of baby (BLANCO Wharton) and her are not in a relationship. MOB states that they are planning on co-parenting together. MOB denies any violence or coercion, stating that relations were amicable and consensual . Medical History: ?BRYAN is 28 year old female who is 2, para 1- now 2 following labor and delivery of . BRYAN received routine care during with [facility]. BRYAN presented to hospital on 09/07/23 in labor and delivered baby via vaginal delivery on 09/08/23 at 37 weeks gestation. Baby boy, named Hemanth, was born weighing 6lb 5oz with apgars of 8 and 9 at one and five minutes of life, respectfully. BRYAN states that she is bottle feeding and baby will be followed by Dr. Chicas for pediatrics. Educational Status:?BRYAN reports to completing high school and obtaining some advanced education in medical assisting and phlebotomy. 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 She is able to take off as much time as she needs for a maternity leave. Supplies:?? BRYAN reports to obtaining all necessary baby supplies, including: car seat, safe sleep space, clothes, diapers and wipes. Childcare/Caregiver(s):? BRYAN will be the primary caregiver to baby, with assistance from maternal grandmother when required. Transportation:?? BRYAN has her drivers license and reliable means of transportation. Programs/Agencies Involved: ???BRYAN is currently receiving services through [employer] (insurance and food benefits), BRYAN is also connected to [facility] and has a follow up appointment scheduled three weeks from now. BRYAN states that she has a counselor at [facility], but does not have any future appointments scheduled with them. Children Services/Legal Issues:???BRYAN states that she does have children services involvement, however her mother filed for custody of her son before he could be removed from [facility] care. BRYAN states that she was dealing with addiction and substance use when Children Services got involved, however when her mom was granted permanent custody of her son, Children Services closed their case. MOB states that she also has a legal involvement involving drugs being taken into the penitentiary when she got arrested. MOB states that she was incarcerated for three years and was released over a year ago. MOB states that she has nothing pending at this time, no warrants, and no probation. - Jerardo made referral to [facility] due to maternal substance use of marijuana during , jerardo spoke to hotline screenerCarina. Behavioral Health Issues: ??Mental Health History:?BRYAN has been diagnosed with anxiety and schizoaffective disorder. BRYAN is prescribed hydroxyzine from her primary care doctor. BRYAN states that she was also prescribed zoloft but quit taking it towards the end of her . BRYAN states that she has never experienced baby blues or depression/ anxiety in the past. ?? Substance Use History:?BRYAN reports that she has smoked marijuana throughout to help with nausea and to help her feel calm. MOB informed jerardo that she used to also be addicted to methamphetamine, but has not used in over three years. MOB states that she is aware of substance use resources that are available to her within the community. MOB states that she has no intentions of craving to use anything other than marijuana. ? Family History:?MOB states that she does have family history of substance use/ abuse. BRYAN reports that family members who are addicts are not involved in her life and will not be primary caregivers to baby. ? Drug Screens: ??MOB and baby urine screens were positive for marijuana. Baby meconium screen still pending. Family/Social Stressors:? MOB denies any issues, concerns or stressors at this time. Maternal mental health, former legal involvement and current THC use are ongoing concerns. Support Systems: MOB identifies that her mom and her sisters are her biggest supports. Depression/Shaken Baby/Safe Sleeping:? Sw educated MOB on signs and symptoms of baby blues and mood and anxiety disorders. Sw provided MOB with literature on signs and symptoms to be on the lookout for. Maternal grandma reports that she would be able to recognize if MOB were to struggle with her mental health during this period and would know how to help and support MOB. Sw educated MOB on shaken baby prevention and ABCs of safe sleep. MOB expressed understanding. ASSESSMENT:? MOB and baby admitted following labor and delivery. MOB with significant mental health history positive for schizoaffective disorder and anxiety. MOB also with positive urine screen for THC at time of delivery, and admits to using regularly throughout . MOB states that she also has a substance use history positive for methamphetamine. MOB was incarcerated for three years and has been sober for more than three years. BRYAN is connected to mental health and substance abuse resources at [facility] and knows when to contact them if she needs help. MOB and FOB are not in a relationship, but have agreed to co-parent together. MOB has obtained all necessary baby supplies, and has natural supports in place. PLAN:? MOB and baby to be discharged when medically ready. If Children Services screens in referral, they will follow up with family at home once discharged. ?No other services requested or indicated. Armando Simon, [employer], DEFENSIVE LINE COACH
[2023-09-09 13:59] LABS: Absolute Lymphocyte Count 1.64 X10^3/uL (0.83-4.51); Absolute Neutrophil Count 15.5 X10^3/uL (2.0-7.7); Basophil# 0.04 X10^3/uL; Basophil% 0.2 % (0-1); Eosinophil# 0.18 X10^3/uL; Hematocrit 28.3 % (37-47); Hemoglobin 9.2 g/dL (12.0-15.0); Lymphocyte # 1.64 X10^3/ul (0.83-4.51); Lymphocyte % 8.7 % (19-41); Mean Corp Hgb Conc 32.5 g/dL (32-36); Mean Corpuscular Hgb 25.2 pg (27.0-32.0); Mean Corpuscular Volume 77.5 fL (81-99); Mean Platelet Vol. 8.6 fl (6.2-12.0); Monocyte# 1.42 X10^3/uL; Monocyte% 7.5 % (0-10); NRBC Flagged by Analyzer 0 % (0-5); Neutrophil # 15.45 X10^3/uL (2.7-7.7); Neutrophil % 81.8 % (47-70); Platelet Count 371 K/mm3 (150-450); RBC Distribution Width CV 14.1 % (11.6-14.6); RBC Distribution Width SD 39.6 fl (35.1-43.9); Red Blood Count 3.65 M/mm3 (4.2-5.4); White Blood Count 18.9 K/mm3 (4.4-11.0)
--- NOTE | 2023-09-09 14:08 | CASEMGMT ---
Labor and Delivery Social Work Sw made referral to [facility] due to maternal use of marijuana during and significant history of substance use that includes methamphetamines. MOB and baby tested positive at time of delivery for THC. Sw spoke to hotline screener, Carina who informed sw that referral is going to be screened in at this time and an roller shop utility worker will be assigned. Sw encouraged the worker from [facility] to call this sw'er if they had any additional needs or questions. Armando Simon, CRATE BUILDER, ROUTEMAN
[2023-09-09] MEDS: Acetaminophen 500 MG Tablet 1000 MG PO (20:01)
[2023-09-09] MEDS: 0.9% Saline Lock 10 ML Syringe IV (21:52)
[2023-09-10 02:22] VITALS: BP 110/88; PULSE 71; RESP 16; TEMP 36.2; O2SAT 99
[2023-09-10] MEDS: Acetaminophen 500 MG Tablet 1000 MG PO ×4 (02:33→22:29)
[2023-09-10] MEDS: Ibuprofen 600 MG Tablet PO ×3 (04:53→16:57)
[2023-09-10 07:58] VITALS: BP 137/81; PULSE 70; RESP 16; TEMP 36.6; O2SAT 98
--- NOTE | 2023-09-10 08:37 | PCM.PN.CNM ---
Subjective Subjective Patient seen at bedside. Denies headache, vision changes, SOB, or CP. Denies pain. Ambulating and voiding without difficulty. Objective Data Objective Data Vital Signs: Vital Signs Temp Pulse Resp BP Pulse Ox O2 Del Method 97.8 F 70 16 137/81 H 98 Room Air 09/10/23 07:58 09/10/23 07:58 09/10/23 07:58 09/10/23 07:58 09/10/23 07:58 09/10/23 07:58 Oxygen Delivery Method Room Air Weight: 310 lb 6.574 oz Body Mass Index (BMI) 43.2 Intake & Output: Intake and Output for Last 24 Hours 09/08/23 09/09/23 09/10/23 23:59 23:59 23:59 Intake Total 5606.66 / 5606.66 3933.92 / 3933.92 Output Total 2650 / 2650 2255 / 2255 Balance 2956.66 / 2956.66 1678.92 / 1678.92 Lab / Micro Data 09/09/23 13:30 Labs: Laboratory Results - last 24 hr 09/09/23 13:30: WBC 18.9 H, RBC 3.65 L, Hgb 9.2 L, Hct 28.3 L, MCV 77.5 L, MCH 25.2 L, MCHC 32.5, RDW Std Deviation 39.6, RDW Coeff of Bharath 14.1, Plt Count 371, MPV 8.6, Immature Gran % (Auto) 0.800, Neut % (Auto) 81.8 H, Lymph % (Auto) 8.7 L, [place] % (Auto) 7.5, Eos % (Auto) 1.0, Baso % (Auto) 0.2, Absolute Neuts (auto) 15.5 H, Absolute Lymphs (auto) 1.64, Nucleated RBC % 0 ROS Eyes Eyes: Denies blurry vision, change in vision or spots in vision ENT HEENT: Denies dizziness or headache(s) Cardiovascular Cardiovascular: Denies abdominal pain, chest pain or dyspnea Respiratory/Chest Respiratory/Chest: Denies cough, dyspnea, shortness of breath at rest or shortness of breath with exertion Gastrointestinal Gastrointestinal: Denies abdominal pain, diarrhea or vomiting Genitourinary Genitourinary: Denies change in urinary stream, difficulty urinating or dysuria Musculoskeletal Musculoskeletal: Reports none Integumentary Integumentary: Denies rash Neurologic Neurologic: Denies dizziness, headache(s), memory loss or weakness Physical Exam Const alert and no apparent distress General Appearance: cooperative Orientation / Consciousness: awake Exam Limitations: no limitations HEENT normocephalic Eyes General Eye: normal appearance of both eyes Neck full ROM Chest inspection of chest normal Resp normal respiratory effort and normal air movement Effort and Inspection: symmetric chest movement Auscultation: clear to auscultation bilaterally Cardio regular rate GI soft to palpation, non-tender and non-distended Inspection: and other Back/Spine normal ROM Extremity full ROM, normal capillary refill and no calf tenderness Skin no rashes or lesions noted Neuro oriented x3 and CN's II-XII intact bilaterally Psych mental status grossly normal Assessment & Plan (1) Vaginal delivery: (2) Pre-eclampsia, severe, delivered: (3) Marijuana use during : (4) Tobacco use affecting in third trimester, antepartum: (5) Maternal obesity syndrome in third trimester: PLAN: Plan PPD 2 - Preeclampsia S/P magnesium sulfate- d/c last night BP 137/81- patient is asymptomatic Pain control Formula feeding Continue to monitor BP Anticipate discharge home tomorrow
[2023-09-10] MEDS: Labetalol 200 MG Tablet PO ×2 (09:55→22:29)
[2023-09-10] MEDS: hydrOXYzine PAM 25 MG Capsule 50 MG PO ×2 (09:55→22:29)
[2023-09-10] MEDS: 0.9% Saline Lock 10 ML Syringe IV (09:58)
[2023-09-10 15:14] VITALS: BP 132/67; PULSE 72; RESP 16; TEMP 36.9; O2SAT 100
[2023-09-10 19:50] VITALS: BP 142/70; PULSE 89; RESP 17; TEMP 37; O2SAT 97
[2023-09-11 02:15] VITALS: BP 128/95; PULSE 71; RESP 18; TEMP 36.3; O2SAT 97
[2023-09-11] MEDS: Ibuprofen 600 MG Tablet PO ×2 (03:59→11:15)
--- NOTE | 2023-09-11 06:58 | PCM.DC.SUM ---
Providers Date of Admission: 09/07/23 Primary Care Physician: Dr. Hemant Johnson DO Reason For Visit: INDUCTION Diagnosis Discharge Diagnosis (1) Vaginal delivery: Status: Acute Code(s): O80 - Encounter for full-term uncomplicated delivery (2) Pre-eclampsia, severe, delivered: Status: Acute Code(s): O14.14 - Severe pre-eclampsia complicating childbirth (3) Marijuana use during : Status: Acute Code(s): O99.320 - Drug use complicating , unspecified trimester; F12.90 - Cannabis use, unspecified, uncomplicated (4) Tobacco use affecting in third trimester, antepartum: Status: Acute Code(s): O99.333 - Smoking (tobacco) complicating , third trimester (5) Maternal obesity syndrome in third trimester: Status: Acute Code(s): O99.213 - Obesity complicating , third trimester Plan PPD 3 - Preeclampsia S/P magnesium sulfate- BP - no severe ranges post patient is asymptomatic Pain control Formula feeding Continue Labetalol 200 mg PO BID D/C home with follow up in office Medications at Discharge Home Medications hydroxyzine HCl 50 mg tablet 50 mg PO BID anxiety 02/06/23 acetaminophen 325 mg capsule (Tylenol) 650 mg PO Q6H pain 07/10/23 magnesium oxide-magnesium amino acid chelate 300 mg capsule (Magnesium (oxide/AA chelate)) 1 cap PO DAILY nausea 07/10/23 ondansetron 4 mg disintegrating tablet 8 mg PO Q6H PRN nausea and vomiting 07/10/23 pantoprazole 40 mg tablet,delayed release (Protonix) 40 mg PO DAILY preg 07/10/23 vit no.95-ferrous fumarate 28 mg-folic acid 800 mcg tablet () 1 tab PO DAILY preg 07/10/23 promethazine 12.5 mg tablet 12.5 mg PO .QD nausea 07/10/23 acetaminophen 500 mg tablet 1,000 mg (2 x 500 mg) PO Q6H PRN PRN Pain 1-10 Or Fever #0 tabs 09/11/23 ibuprofen 600 mg tablet 600 mg PO Q6H PRN PRN Pain Score 1-10 #0 tabs 09/11/23 labetalol 200 mg tablet 200 mg PO BID #60 tabs 09/11/23 Hospital Course Operations None Procedures None Summary of Care Provided Minutes Spent on Discharge: 15 Hospital Course: Patient had . Physical Exam Narrative Patient seen at bedside. Denies headache, vision changes, SOB, CP. Desires discharge home today. Const alert and no apparent distress General Appearance: cooperative and comfortable Exam Limitations: no limitations HEENT normocephalic Eyes General Eye: normal appearance of both eyes Neck full ROM General: normal visual inspection Chest Chest: symmetrical chest wall rise Resp normal respiratory effort and normal air movement Effort and Inspection: symmetric chest movement Auscultation: clear to auscultation bilaterally Cardio regular rate and regular rhythm GI normal to inspection, nondistended, normoactive bowel sounds Back/Spine normal ROM Extremity full ROM and no calf tenderness General Extremity: normal exam except as noted Skin no rashes or lesions noted Neuro CN's II-XII intact bilaterally Psych mental status grossly normal Weight / BMI Weight Weight: 310 lb 6.574 oz Body Mass Index (BMI) 43.2 ABG / Lab / Microbiology Data 09/09/23 13:30 D/C Instructions Discharge Diet: No restrictions May resume sexual activity in: 6-8 weeks Weight Bearing Status: Weight bearing as tolerated Call your doctor if you observe: Fever of 101 or Higher, Inability to urinate, Using more than 1 pad per hour, Shortness of breath, Chest pain, Calf discomfort and Uncontrolled pain When: 1 week for BP check Meaningful Use Info Meaningful Use Meaningful Use Diagnoses (Choose all that apply): None applicable Ischemic Stroke Statin Dosing Therapy Reference: STATIN DOSE THERAPY REFERENCE: * Patients > 75 years receive moderate or high dose statin therapy. * Patients 75 years or YOUNGER should receive HIGH intensity statin dose unless contraindicated. You will be required to document reason for non-treatment if statin daily dose does not meet guidelines. HIGH DOSE STATIN THERAPY DAILY Atorvastatin > than or = to 40 mg Rosuvastatin > than or = to 20 mg Amlodipine + Atorvastatin > than or = to 2.5/40 mg Ezetimibe + Simvastatin 10/80 mg Simvastatin 80mg Discharge Plan Admission Admit Date/Time: 09/07/23 17:27 Primary Reason for Your Visit: Labor and delivery Attending Provider: Latricia Beal Primary Care Provider: Hemant Johnson Discharge Orders/Prescriptions Prescriptions: New labetalol 200 mg Tablet 200 mg PO BID Qty: 60 3RF acetaminophen 500 mg Tablet 1,000 mg PO Q6H PRN PRN (Reason: Pain 1-10 Or Fever) Qty: 0 0RF ibuprofen 600 mg Tablet 600 mg PO Q6H PRN PRN (Reason: Pain Score 1-10) Qty: 0 0RF Continued hydroxyzine HCl 50 mg tablet 50 mg PO BID Patient Comments: TAKE 1 TABLET BY MOUTH EVERY 6 HOURS NEEDED FOR ANXIETY pantoprazole [Protonix] 40 mg tablet,delayed release (DR/EC) 40 mg PO DAILY PNV cmb#95-ferrous fumarate-FA [] 28 mg iron- 800 mcg tablet 1 tab PO DAILY promethazine 12.5 mg tablet 12.5 mg PO .QD Rx Instructions: 3 doses during day; last dose no later than 4 hr before bedtime ondansetron 4 mg tablet,disintegrating 8 mg PO Q6H PRN (Reason: nausea and vomiting) No Action Magnesium (oxide/AA chelate) 300 mg capsule 1 cap PO DAILY acetaminophen [Tylenol] 325 mg capsule 650 mg PO Q6H Referrals / Follow Up: Hemant Johnson, [Primary Care Provider] - Disposition Disposition (needs filled in before D/C Order can be placed): Home, Self Care
[2023-09-11 08:00] VITALS: BP 141/79; PULSE 85; RESP 18; TEMP 36.2; O2SAT 96
[2023-09-11] MEDS: Acetaminophen 500 MG Tablet 1000 MG PO (08:58)
[2023-09-11] MEDS: Labetalol 200 MG Tablet PO (10:07)
[2023-09-11] MEDS: hydrOXYzine PAM 25 MG Capsule 50 MG PO (11:12)
[2023-09-11 12:51] VITALS: BP 139/97; PULSE 70; RESP 16; TEMP 36.2; O2SAT 100
--- NOTE | 2023-09-15 11:28 | NURSING ---
F/up phone call performed. Pt. feeling well, denies headache, blurred vision, or flu-like symptoms. Pt. denies questions or concerns at this time. Encouragement and support given.
== END 2023-09-11 13:35 | disposition home or self-care (01) | DRG 560 ==
PROVIDERS: Admitting Provider Obstetrics & Gynecology; PCP Family Medicine; Visit Provider Obstetrics & Gynecology
DX: O14.14 Severe pre-eclampsia complicating childbirth (principal); Z37.0 Single live birth; O99.324 Drug use complicating childbirth; I16.1 Hypertensive emergency; F17.210 Nicotine dependence, cigarettes, uncomplicated; F12.90 Cannabis use, unspecified, uncomplicated; O26.03 Excessive weight gain in pregnancy, third trimester; O99.334 Smoking (tobacco) complicating childbirth; O69.81X0 Labor and delivery complicated by cord around neck, without compression, not applicable or unspecified; O76 Abnormality in fetal heart rate and rhythm complicating labor and delivery; Z3A.37 37 weeks gestation of pregnancy
CPT/HCPCS: 59025; 59050; 80307; 85025; 86780; 86850; 86900; 86901; 99221; J7120; A4216; G0378; J2405